=== PATIENT | male | born 1950 | race Caucasian/White ===

== ENCOUNTER 2017-11-05 16:52 | Inpatient (IN) ==
[2017-11-05 17:17] LABS: Basophils % 0.1 % (0.1-2.0); Eosinophils % 0.1 % (0.1-12.0); Hemoglobin 12.5 g/dL (14.1-18.0); Lymphocytes # 0.8 K/mm3 (0.7-4.5); Lymphocytes % 6.1 K/mm3 (10-50); Mean Corpuscular HGB Conc 32.1 g/dL (31.8-35.4); Mean Corpuscular Hemoglobin 29.2 pg (27.0-31.2); Mean Platelet Volume 8.2 fl (7.4-10.4); Neutrophils # 11.8 K/mm3 (1.8-7.8); Neutrophils % 86.7 % (37.0-80.0); Platelet Count 204 K/mm3 (142-424); Red Blood Count 4.29 M/mm3 (4.60-6.20); Red Cell Distribution Width 19.1 % (11.5-17.5); White Blood Count 13.6 K/mm3 (4.8-10.8)
--- NOTE | 2017-11-05 17:19 | Emergency Department Note ---
ED Disposition Clinical Impression: Closed left hip fracture Qualifiers: Encounter type: initial encounter Qualified Code(s): S72.002A - Fracture of unspecified part of neck of left femur, initial encounter for closed fracture Disposition: Admitted As Inpatient Condition on Discharge: Fair Referrals: Gerald Bailon MD [Primary Care Provider] - Antony Zamora MD [Staff Physician] - Time of Disposition: 18:41 - Critical Care Critical Care Time: No Attestation: On , the high probability of a clinically significant, sudden or life threatening deterioration of the following system(s) required my full and direct attention, intervention and personal management. The time I documented below is in addition to time spent performing reported procedures but includes the following listed in this critical care notation. Medical Decision Making - Medical Records Medical records reviewed: Yes: I reviewed the patient's medical records. - Fredi Inquiry Pt receiving controlled substance: No Fredi was queried for this patient: No Vital Signs: 11/05/17 16:57 Temperature 98.3 F Temperature Source Oral Pulse Rate [Right Radial] 88 Respiratory Rate 16 Blood Pressure [Right Arm] 145/87 Blood Pressure Mean [Right Arm] 106 Blood Pressure Source [Right Arm] Automatic Cuff Blood Pressure Position [Right Arm] Supine 02 Sat by Pulse Oximetry 99 Oxygen Delivery Method Room Air - Lab Data Lab results reviewed: Yes: I reviewed the patient's lab results. Lab Results 11/05/17 17:00: WBC 13.6 H, RBC 4.29 L, Hgb 12.5 L, Hct 39.0 L, MCV 91.0, MCH 29.2, MCHC 32.1, RDW 19.1 H, Plt Count 204, MPV 8.2, Neut % (Auto) 86.7 H, Lymph % (Auto) 6.1 L, [place] % (Auto) 7.0, Eos % (Auto) 0.1, Baso % (Auto) 0.1, Neut # (Auto) 11.8 H, Lymph # (Auto) 0.8, [place] # (Auto) 1.0, Eos # (Auto) 0.0, Baso # (Auto) 0.0, Total Counted 100, Neutrophils % (Manual) 85 H, Band Neutrophils % 1.0, Lymphocytes % (Manual) 4 L, Monocytes % (Manual) 10 H, Platelet Estimate Normal, RBC Morphology Normal 11/05/17 18:00: Urine Color Yellow, Urine Appearance Clear, Urine pH 6.5, Ur Specific [place] 1.015, Urine Protein Negative, Urine Glucose (UA) Negative, Urine Ketones Negative, Urine Blood Negative, Urine Nitrate Negative, Urine Bilirubin Negative, Urine Urobilinogen 0.2, Ur Leukocyte Esterase 1+ A, Urine RBC None, Urine WBC 5-10, Ur Squamous Epith Cells None, Urine Bacteria 3+ 11/05/17 18:13: Sodium 137, Potassium 4.6, Chloride 101, Carbon Dioxide 27, Anion Gap 13.6, BUN 52 H, Creatinine 1.90 H, Estimated Creat Clear 28, Estimated GFR 36 L, Est GFR ( Amer) 43 L, Glucose 118 H, Calcium 9.1, Total Bilirubin 2.1 H, AST 50 H, ALT 32, Alkaline Phosphatase 165 H, Total Protein 9.8 H, Albumin 3.0 L, Globulin 6.8 H, Albumin/Globulin Ratio 0.4 L 11/05/17 18:13: PT 12.4 H, INR 1.21 H Result diagrams: 11/05/17 17:00 11/05/17 18:13 Orders (Tests/Meds): ORDERS Category Date Time Status Chest XR AP view [XR chest AP] Stat Exams 11/05/17 17:23 Taken XR hip LT 2-3V w/pelvis Stat Exams 11/05/17 17:04 Taken XR shoulder RT min 2V Stat Exams 11/05/17 17:04 Taken Cardiac Enzymes Stat Lab 11/05/17 18:13 Received Lactic Acid Stat Lab 11/05/17 18:13 Received Urine Culture Stat Micro 11/05/17 18:00 Received - Radiology Data #1 Image(s): Chest Image Reviewed: Yes I reviewed the patient's radiology results, Yes I reviewed the patient's radiology image, Yes I reviewed the patient's radiology image w/ the ED provider Preliminary Findings: Normal/NAD #2 Image(s): Hip Image Reviewed: Yes I reviewed the patient's radiology results, Yes I reviewed the patient's radiology image, Yes I discussed the image results w/the radiologist, Yes I reviewed the patient's radiology image w/the ED provider intertrochanteric fracture left hip #3 Image(s): Shoulder Image Reviewed: Yes I reviewed the patient's radiology results, Yes I reviewed the patient's radiology image old fracture right clavicle Fall HPI - General Chief Complaint: Fall Stated Complaint: FALL Time Seen by Provider: 11/05/17 17:15 Mode of Arrival: EMS Limitations: No Limitations Description of Symptoms (Recalled from ER Triage Doc. by RN): FELL YESTERDAY IN UTILITY ROOM AND WAS LEFT ON FLOOR SINCE THEN. PT STATES HE SEEN STARS AND WAS TO WEAK TO GET UP. PT REPORTS PAIN IN "LEFT FEMUR AND LEFT PELVIS." BRUISE NOTED TO RIGHT SHOULDER AND AXILLA WHICH PT STATES THAT IS FROM A PREVIOUS. - History of Present Illness HPI Narrative: Pt lives alone and is a very thin emaciated man who says he is a vegetarian his entire life and yesterday he tried to miss his puppy and fell onto his left hip and back and lay on the floor all night last night until he was found today and now comes tot ED with pain in low back and in left hipand pelvis and the left leg is shortened and externally rotated. He is alert but very thin and appears to be somehat dehydrated.. He also complains of some dizziness. MD complaint: fall Onset (ago): day(s) Fall from: standing Fall witnessed: no Place fall occurred: home Loss of consciousness: none - Related Data Allergies Allergy/AdvReac Type Severity Reaction Status Date / Time No Known Allergies Allergy Verified 11/05/17 17:03 [facility] History I have reviewed the patient's past medical history: Yes - Social History Alcohol Intake: never - Psychiatric History Expresses thoughts of harming self/others: None Suicide Plan Description: No Plan ROS Obtained: Yes All systems reviewed & no additional complaints - Constitutional Constitutional: Reports system reviewed and no additional complaints, except as docu - Eyes Eyes: Reports system reviewed and no additional complaints, except as docu - ENT Ears, Nose, Mouth, and Throat: Reports system reviewed and no additional complaints, except as docu - Cardiovascular Cardiovascular: Reports system reviewed and no additional complaints, except as docu - Musculoskeletal Musculoskeletal: Reports system reviewed and no additional complaints, except as docu, Reports as per HPI Physical Exam - General General appearance: alert, in no apparent distress - Head Head exam: atraumatic - Eye Eye exam: Present: normal appearance - ENT ENT exam: Present: mucous membranes dry - Neck Neck exam: Present: normal inspection - Chest Chest inspection: Present: normal inspection - Respiratory Respiratory exam: Present: normal lung sounds bilaterally - Cardiovascular Cardiovascular exam: Present: regular rate, normal rhythm - Extremities Exam Extremities exam: Present: other (left leg shortened and externally rotated) - Neurological Exam Neurological exam: Present: alert, oriented X3
[2017-11-05 18:03] LABS: Appearance,Urine CLEAR (Clear); Bilirubin,Urine Negative (Negative); Blood, Urine Negative (Negative); Color,Urine YELLOW (Yellow); Glucose,Urine (UA) Negative (Negative); Ketones,Urine Negative (Negative); Leukocyte Esterase,Urine 1+ (Negative); PH,Urine 6.5 (5.0-8.5); Protein,Urine Negative (Negative); Specific Gravity, Urine 1.015 (1.005-1.030); Urobilinogen,Urine 0.2 EU/dl (0.2)
[2017-11-05 18:05] LABS: Microscopic, Urine URINE MICROSCOPIC (MICROSCOPIC)
[2017-11-05 18:13] LABS: Bacteria,Urine 3+ /lpf
[2017-11-05 18:16] LABS: Lymphocytes % 4 % (10-50); Monocytes % 10 % (2-9); Neutrophils % 85 % (42-76); RBC Morphology Normal; Total Cells Counted 100
[2017-11-05 18:30] LABS: INR 1.21 (0.9-1.1); Prothrombin Time 12.4 seconds (9.4-11.8)
[2017-11-05 18:36] LABS: Albumin/Globulin Ratio 0.4 (1.1-1.8); Anion Gap 13.6 mEq/L (5-15); Bilirubin,Total 2.1 mg/dL (0.2-1.0); Calcium 9.1 mg/dL (8.5-10.1); Globulin 6.8 gm/dl (1.3-3.2); Potassium 4.6 mmoL/L (3.5-5.1); Total Protein,Serum 9.8 gm/dL (6.4-8.2)
[2017-11-05 18:48] LABS: Creatine Kinase 294 U/L (39-308)
[2017-11-06 06:41] LABS: Basophils % 0.1 % (0.1-2.0); Eosinophils # 0.2 K/mm3 (0.0-0.4); Eosinophils % 0.9 % (0.1-12.0); Lymphocytes # 0.6 K/mm3 (0.7-4.5); Lymphocytes % 2.8 K/mm3 (10-50); Mean Corpuscular HGB Conc 31.9 g/dL (31.8-35.4); Mean Corpuscular Hemoglobin 28.9 pg (27.0-31.2); Mean Corpuscular Volume 90.6 fl (80-94); Mean Platelet Volume 8.2 fl (7.4-10.4); Monocytes # 1.1 K/mm3 (0.1-1.0); Monocytes % 5.2 % (1.7-9.3); Neutrophils # 18.4 K/mm3 (1.8-7.8); Neutrophils % 91.1 % (37.0-80.0); Platelet Count 130 K/mm3 (142-424); Red Blood Count 3.66 M/mm3 (4.60-6.20); Red Cell Distribution Width 16.4 % (11.5-17.5)
[2017-11-06 06:45] LABS: INR 1.23 (0.9-1.1); Prothrombin Time 12.6 seconds (9.4-11.8)
[2017-11-06 06:54] LABS: Albumin Level 2.6 gm/dL (3.4-5.0); Albumin/Globulin Ratio 0.4 (1.1-1.8); Anion Gap 7.5 mEq/L (5-15); Bilirubin,Total 1.5 mg/dL (0.2-1.0); Calcium 8.5 mg/dL (8.5-10.1); Potassium 4.5 mmoL/L (3.5-5.1); Total Protein,Serum 8.6 gm/dL (6.4-8.2)
[2017-11-06 07:01] LABS: Hemoglobin 10.7 g/dL (14.1-18.0); White Blood Count 19.8 K/mm3 (4.8-10.8)
[2017-11-06 07:02] LABS: Hematocrit 33.2 % (42.0-52.0)
--- NOTE | 2017-11-06 07:10 | History & Physical Report ---
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 Injury had occurred at some point in the previous 24 hours. Patient was found to have an intertrochanteric left hip fracture and has been admitted for surgical repair. Other than pain patient has no complaints this morning. He denies syncope, chest pain, shortness of breath. [facility] History Medical History: Denies:: Cancer, Diabetes Mellitus Type 1, Diabetes Mellitus Type 2, Internal Pacemaker, MRSA Comment: Hepatitis C Other Surgeries: No: Pacemaker Amputation: No Fractures: Yes (BOTH LEGS; RT RADIAL, LT ULNA, NOSE, JAW, TED:BLE 2INCHES SHORTER AFTER F) Comment: Right herniorrhaphy, banding of esophageal varices - *Social History Educational Level: Attended College Alcohol Intake: never Occupational Status: retired Housing: house - Psychiatric History Expresses thoughts of harming self/others: None Suicide Plan Description: No Plan Review of Systems - Constitutional Reports anorexia, Denies body ache(s), Denies chills - *Cardiovascular Denies chest pain - *Respiratory Denies shortness of breath - *Gastrointestinal Denies abdominal pain Comments: Ascites - *Musculoskeletal Reports joint pain Meds Home Medications Medication Instructions Recorded Confirmed Type Furosemide 40MG tAB 40 mg PO DAILY 11/05/17 11/05/17 History Propranolol HCl 10 mg PO BID 11/05/17 11/05/17 History Spironolactone 100 mg PO DAILY 11/05/17 11/05/17 History Vitamin D3 50,000 unit Cap 50,000 units PO WEEKLY 11/05/17 11/05/17 History Allergies Allergy/AdvReac Type Severity Reaction Status Date / Time No Known Allergies Allergy Verified 11/05/17 17:03 Exam Vital signs and Labs for Last 24 Hours: Temp Pulse Resp BP Pulse Ox 98.2 F 78 18 124/67 92 L 11/06/17 04:00 11/06/17 04:00 11/06/17 04:00 11/06/17 04:00 11/06/17 04:00 Laboratory Results - last 24 hr 11/05/17 17:00: WBC 13.6 H, RBC 4.29 L, Hgb 12.5 L, Hct 39.0 L, MCV 91.0, MCH 29.2, MCHC 32.1, RDW 19.1 H, Plt Count 204, MPV 8.2, Neut % (Auto) 86.7 H, Lymph % (Auto) 6.1 L, [place] % (Auto) 7.0, Eos % (Auto) 0.1, Baso % (Auto) 0.1, Neut # (Auto) 11.8 H, Lymph # (Auto) 0.8, [place] # (Auto) 1.0, Eos # (Auto) 0.0, Baso # (Auto) 0.0, Total Counted 100, Neutrophils % (Manual) 85 H, Band Neutrophils % 1.0, Lymphocytes % (Manual) 4 L, Monocytes % (Manual) 10 H, Platelet Estimate Normal, RBC Morphology Normal 11/05/17 18:00: Urine Color Yellow, Urine Appearance Clear, Urine pH 6.5, Ur Specific [place] 1.015, Urine Protein Negative, Urine Glucose (UA) Negative, Urine Ketones Negative, Urine Blood Negative, Urine Nitrate Negative, Urine Bilirubin Negative, Urine Urobilinogen 0.2, Ur Leukocyte Esterase 1+ A, Urine RBC None, Urine WBC 5-10, Ur Squamous Epith Cells None, Urine Bacteria 3+ 11/05/17 18:13: Sodium 137, Potassium 4.6, Chloride 101, Carbon Dioxide 27, Anion Gap 13.6, BUN 52 H, Creatinine 1.90 H, Estimated Creat Clear 28, Estimated GFR 36 L, Est GFR ( Amer) 43 L, Glucose 118 H, Calcium 9.1, Total Bilirubin 2.1 H, AST 50 H, ALT 32, Alkaline Phosphatase 165 H, Total Protein 9.8 H, Albumin 3.0 L, Globulin 6.8 H, Albumin/Globulin Ratio 0.4 L 11/05/17 18:13: Total Creatine Kinase 294, CK-MB (CK-2) 3.1, CK-MB (CK-2) Rel Index 1.1, Troponin I < 0.02 11/05/17 18:13: PT 12.4 H, INR 1.21 H 11/05/17 18:13: Lactic Acid 2.3 H 11/05/17 22:10: Lactic Acid Fup @ 4Hr 1.8 11/06/17 06:19: WBC 19.8 H D, RBC 3.66 L, Hgb 10.7 L D, Hct 33.2 L, MCV 90.6, MCH 28.9, MCHC 31.9, RDW 16.4, Plt Count 130 L D, MPV 8.2, Neut % (Auto) 91.1 H , Lymph % (Auto) 2.8 L, [place] % (Auto) 5.2, Eos % (Auto) 0.9, Baso % (Auto) 0.1, Neut # (Auto) 18.4 H, Lymph # (Auto) 0.6 L, [place] # (Auto) 1.1 H, Eos # (Auto) 0.2, Baso # (Auto) 0.0 11/06/17 06:19: PT 12.6 H, INR 1.23 H I & O for Last 24 hours: Intake & Output 11/03/17 11/04/17 11/05/17 11/06/17 11:59 11:59 11:59 11:59 Intake Total 893 / 893 Output Total 100 / 100 Balance 793 / 793 Weight 101 lb 4 oz Microbiology Reports for the Last 24 Hours: Microbiology 11/05/17 18:00 Urine,Clean Catch Urine Culture - Preliminary Narrative: Cachectic appearing male who also appears older than his stated age. Oropharynx is moist. Neck is without lymphadenopathy. Lungs are distant but clear to auscultation. Heart has a regular rate and rhythm. Abdomen is thin and soft with minimal ascites. Extremities are warm to the touch. He is neurovascularly intact in the left lower extremity distal to the fracture. H&P: Result - Labs Labs: Short CBC 11/05/17 11/06/17 Range/Units 17:00 06:19 WBC 13.6 H 19.8 H D (4.8-10.8) K/mm3 Hgb 12.5 L 10.7 L D (14.1-18.0) g/dL Hct 39.0 L 33.2 L (42.0-52.0) % Plt Count 204 130 L D (142-424) K/mm3 BMP 11/05/17 18:13 Sodium 137 Potassium 4.6 Chloride 101 Carbon Dioxide 27 BUN 52 H Creatinine 1.90 H Glucose 118 H Calcium 9.1 Cardiac Enzymes 11/05/17 Range/Units 18:13 Total Creatine Kinase 294 (39-308) U/L CK-MB (CK-2) 3.1 (0.0-3.6) ng/ml Troponin I < 0.02 (0.00-0.06) ng/ml Liver Function 11/05/17 Range/Units 18:13 Total Bilirubin 2.1 H (0.2-1.0) mg/dL AST 50 H (15-37) U/L ALT 32 (12-78) U/L Alkaline Phosphatase 165 H (46-116) U/L Albumin 3.0 L (3.4-5.0) gm/dL Urine 11/05/17 Range/Units 18:00 Urine Color Yellow (Yellow) Urine Appearance Clear (Clear) Urine pH 6.5 (5.0-8.5) Ur Specific [place] 1.015 (1.005-1.030) Urine Protein Negative (Negative) Urine Glucose (UA) Negative (Negative) Assessment and Plan (1) Closed left hip fracture Current visit: Yes Status: Acute Qualifiers: Encounter type: initial encounter Qualified Code(s): S72.002A - Fracture of unspecified part of neck of left femur, initial encounter for closed fracture Category: Medical Code(s): S72.002A - Fracture of unspecified part of neck of left femur, initial encounter for closed fracture (2) Hepatic cirrhosis due to chronic hepatitis C infection Current visit: Yes Status: Acute Category: Medical Code(s): B18.2 - Chronic viral hepatitis C; K74.60 - Unspecified cirrhosis of liver - Assessment and plan all Dx Assessment and Plan for all problems:: Patient has been admitted for repair of left hip fracture. I have been informed by nursing staff that that is anticipated to occur this afternoon. I have already explained to the patient that postoperatively he will be evaluated by physical therapy and will likely need a stay at a retirement facility to get back on his feet. Patient is understanding. He looks forward to having his hip fracture repaired.
--- NOTE | 2017-11-06 08:34 | Pharmacy Consult Notes ---
[facility] Pharmacy VTE Monitoring - Patient Demographics Admission date: 11/06/17 Report Date: 11/06/17 Time: 08:34 Allergies/Adverse Reactions: Patient Allergies No Known Allergies Allergy (Verified 11/05/17 17:03) Height: 1.68 m Weight: 47.287 kg Patient Problems: Current Active Problems Closed left hip fracture (Acute) Hepatic cirrhosis due to chronic hepatitis C infection (Acute) - VTE Risk Labs: VTE Related Lab Results Hgb 10.7 g/dL (14.1-18.0) L D 11/06/17 06:19 Hct 33.2 % (42.0-52.0) L 11/06/17 06:19 Plt Count 130 K/mm3 (142-424) L D 11/06/17 06:19 PT 12.6 seconds (9.4-11.8) H 11/06/17 06:19 INR 1.23 (0.9-1.1) H 11/06/17 06:19 BUN 50 mg/dL (7-18) H 11/06/17 06:19 Creatinine 1.57 mg/dL (0.70-1.30) H 11/06/17 06:19 Estimated Creat Clear 30 mL/min (0-300) 11/06/17 06:19 VTE Risk Level: Low Risk - Prophylaxis Location of Applied Device: Bilateral Lower Extremeties ([place] ORDERED)
[2017-11-06 09:33] LABS: Lymphocytes % 4 % (10-50); Monocytes % 6 % (2-9); Neutrophils % 86 % (42-76); Total Cells Counted 100
--- NOTE | 2017-11-06 10:19 | Pharmacy Consult Notes ---
[facility] Pharmacy VTE Monitoring - Patient Demographics Admission date: 11/05/17 Report Date: 11/06/17 Time: 10:19 Allergies/Adverse Reactions: Patient Allergies No Known Allergies Allergy (Verified 11/05/17 17:03) Height: 1.68 m Weight: 47.287 kg Patient Problems: Current Active Problems Closed left hip fracture (Acute) Hepatic cirrhosis due to chronic hepatitis C infection (Acute) - VTE Risk Labs: VTE Related Lab Results Hgb 10.7 g/dL (14.1-18.0) L D 11/06/17 06:19 Hct 33.2 % (42.0-52.0) L 11/06/17 06:19 Plt Count 130 K/mm3 (142-424) L D 11/06/17 06:19 PT 12.6 seconds (9.4-11.8) H 11/06/17 06:19 INR 1.23 (0.9-1.1) H 11/06/17 06:19 BUN 50 mg/dL (7-18) H 11/06/17 06:19 Creatinine 1.57 mg/dL (0.70-1.30) H 11/06/17 06:19 Estimated Creat Clear 30 mL/min (0-300) 11/06/17 06:19 VTE Risk Level: Low Risk - Prophylaxis VTE Prophylaxis Ordered?: Yes Types of VTE Prophylaxis: TEDS Knee High Location of Applied Device: Bilateral Lower Extremeties - VTE Diagnosis Confirmed Treatment or plan recommended: Continue Current Treatment
--- NOTE | 2017-11-06 13:42 | Consult Report ---
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 Injury had occurred at some point in the previous 24 hours. Patient was found to have an intertrochanteric left hip fracture and has been admitted for surgical repair. Other than pain patient has no complaints this morning. He denies syncope, chest pain, shortness of breath. [facility] History Medical History: Denies:: Cancer, Diabetes Mellitus Type 1, Diabetes Mellitus Type 2, Internal Pacemaker, MRSA Other Surgeries: No: Pacemaker Amputation: No Fractures: Yes (BOTH LEGS; RT RADIAL, LT ULNA, NOSE, JAW, TED:BLE 2INCHES SHORTER AFTER F) - *Social History Educational Level: Attended College Alcohol Intake: never Occupational Status: retired Housing: house - Psychiatric History Expresses thoughts of harming self/others: None Suicide Plan Description: No Plan Meds Home Medications Medication Instructions Recorded Confirmed Type Cholecalciferol (Vitamin D3) 50,000 unit PO PRAKASH 11/05/17 11/06/17 History [Vitamin D3 50,000 unit Cap] Furosemide [Furosemide 40MG tAB] 40 mg PO DAILY 11/05/17 11/05/17 History Propranolol HCl 10 mg PO BID 11/05/17 11/06/17 History Spironolactone 100 mg PO DAILY 11/05/17 11/06/17 History Allergies Allergy/AdvReac Type Severity Reaction Status Date / Time No Known Allergies Allergy Verified 11/05/17 17:03 Exam Vital signs and Labs for Last 24 Hours: Temp Pulse Resp BP Pulse Ox 97.8 F 51 L 16 124/65 93 L 11/06/17 08:00 11/06/17 08:00 11/06/17 08:00 11/06/17 08:00 11/06/17 08:00 Laboratory Results - last 24 hr 11/05/17 17:00: WBC 13.6 H, RBC 4.29 L, Hgb 12.5 L, Hct 39.0 L, MCV 91.0, MCH 29.2, MCHC 32.1, RDW 19.1 H, Plt Count 204, MPV 8.2, Neut % (Auto) 86.7 H, Lymph % (Auto) 6.1 L, Harper % (Auto) 7.0, Eos % (Auto) 0.1, Baso % (Auto) 0.1, Neut # (Auto) 11.8 H, Lymph # (Auto) 0.8, Harper # (Auto) 1.0, Eos # (Auto) 0.0, Baso # (Auto) 0.0, Total Counted 100, Neutrophils % (Manual) 85 H, Band Neutrophils % 1.0, Lymphocytes % (Manual) 4 L, Monocytes % (Manual) 10 H, Platelet Estimate Normal, RBC Morphology Normal 11/05/17 18:00: Urine Color Yellow, Urine Appearance Clear, Urine pH 6.5, Ur Specific [place] 1.015, Urine Protein Negative, Urine Glucose (UA) Negative, Urine Ketones Negative, Urine Blood Negative, Urine Nitrate Negative, Urine Bilirubin Negative, Urine Urobilinogen 0.2, Ur Leukocyte Esterase 1+ A, Urine RBC None, Urine WBC 5-10, Ur Squamous Epith Cells None, Urine Bacteria 3+ 11/05/17 18:13: Sodium 137, Potassium 4.6, Chloride 101, Carbon Dioxide 27, Anion Gap 13.6, BUN 52 H, Creatinine 1.90 H, Estimated Creat Clear 28, Estimated GFR 36 L, Est GFR ( Amer) 43 L, Glucose 118 H, Calcium 9.1, Total Bilirubin 2.1 H, AST 50 H, ALT 32, Alkaline Phosphatase 165 H, Total Protein 9.8 H, Albumin 3.0 L, Globulin 6.8 H, Albumin/Globulin Ratio 0.4 L 11/05/17 18:13: Total Creatine Kinase 294, CK-MB (CK-2) 3.1, CK-MB (CK-2) Rel Index 1.1, Troponin I < 0.02 11/05/17 18:13: PT 12.4 H, INR 1.21 H 11/05/17 18:13: Lactic Acid 2.3 H 11/05/17 22:10: Lactic Acid Fup @ 4Hr 1.8 11/06/17 06:19: WBC 19.8 H D, RBC 3.66 L, Hgb 10.7 L D, Hct 33.2 L, MCV 90.6, MCH 28.9, MCHC 31.9, RDW 16.4, Plt Count 130 L D, MPV 8.2, Neut % (Auto) 91.1 H , Lymph % (Auto) 2.8 L, Harper % (Auto) 5.2, Eos % (Auto) 0.9, Baso % (Auto) 0.1, Neut # (Auto) 18.4 H, Lymph # (Auto) 0.6 L, Harper # (Auto) 1.1 H, Eos # (Auto) 0.2, Baso # (Auto) 0.0, Total Counted 100, Neutrophils % (Manual) 86 H, Band Neutrophils % 4.0, Lymphocytes % (Manual) 4 L, Monocytes % (Manual) 6, Platelet Estimate Slight decrease 11/06/17 06:19: PT 12.6 H, INR 1.23 H 11/06/17 06:19: Sodium 134 L, Potassium 4.5, Chloride 102, Carbon Dioxide 29, Anion Gap 7.5, BUN 50 H, Creatinine 1.57 H, Estimated Creat Clear 30, Estimated GFR 44 L, Est GFR ( Amer) 54 L D, Glucose 100, Calcium 8.5, Magnesium 1.8 , Total Bilirubin 1.5 H, AST 42 H, ALT 29, Alkaline Phosphatase 147 H, Total Protein 8.6 H, Albumin 2.6 L D, Globulin 6.0 H, Albumin/Globulin Ratio 0.4 L I & O for Last 24 hours: Intake & Output 11/04/17 11/05/17 11/06/17 11/07/17 11:59 11:59 11:59 11:59 Intake Total 918 / 918 Output Total 100 / 100 Balance 818 / 818 Weight 104 lb 4 oz 104 lb 4 oz Microbiology Reports for the Last 24 Hours: Microbiology 11/05/17 18:00 Urine,Clean Catch Urine Culture - Preliminary Narrative: This patient is a 67 yo male with a complex PHx including Hepatitis C who fell at home incurring a left hip intertrochanteric fx. He is admitted for orthopaedic care. Exam...pt is coherent and good historian. L hip shortened and externally rotated. Pulses intact PT and DP. sensate to LT. no palpable venous cord. 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 Imp--Same Plan--Gamma nail placement L hip. R/B discussed as well as nonsurgical options. Pt agrees with surgery. Will plan for this afternoon. Note that pt developed AFib in OR and Dr. Pelletier was kind enough to offer management suggestions prior to surgery. Results - Labs Result Diagrams: 11/06/17 06:19 11/06/17 06:19 Labs: Abnormal lab results 11/05/17 11/05/17 11/05/17 Range/Units 17:00 18:00 18:13 WBC 13.6 H (4.8-10.8) K/mm3 RBC 4.29 L (4.60-6.20) M/mm3 Hgb 12.5 L (14.1-18.0) g/dL Hct 39.0 L (42.0-52.0) % RDW 19.1 H (11.5-17.5) % Plt Count (142-424) K/mm3 Neut % (Auto) 86.7 H (37.0-80.0) % Lymph % (Auto) 6.1 L (10-50) K/mm3 Neut # (Auto) 11.8 H (1.8-7.8) K/mm3 Lymph # (Auto) (0.7-4.5) K/mm3 Harper # (Auto) (0.1-1.0) K/mm3 Neutrophils % (Manual) 85 H (42-76) % Lymphocytes % (Manual) 4 L (10-50) % Monocytes % (Manual) 10 H (2-9) % PT (9.4-11.8) seconds INR (0.9-1.1) Sodium (136-145) mmol/L BUN 52 H (7-18) mg/dL Creatinine 1.90 H (0.70-1.30) mg/dL Estimated GFR 36 L (>60) ml/min Est GFR ( Amer) 43 L (>60) ML/MIN Glucose 118 H (74-106) mg/dL Lactic Acid (0.4-2.0) mmol/L Total Bilirubin 2.1 H (0.2-1.0) mg/dL AST 50 H (15-37) U/L Alkaline Phosphatase 165 H (46-116) U/L Total Protein 9.8 H (6.4-8.2) gm/dL Albumin 3.0 L (3.4-5.0) gm/dL Globulin 6.8 H (1.3-3.2) gm/dl Albumin/Globulin Ratio 0.4 L (1.1-1.8) Ur Leukocyte Esterase 1+ A (Negative) 11/05/17 11/05/17 11/06/17 Range/Units 18:13 18:13 06:19 WBC 19.8 H D (4.8-10.8) K/mm3 RBC 3.66 L (4.60-6.20) M/mm3 Hgb 10.7 L D (14.1-18.0) g/dL Hct 33.2 L (42.0-52.0) % RDW (11.5-17.5) % Plt Count 130 L D (142-424) K/mm3 Neut % (Auto) 91.1 H (37.0-80.0) % Lymph % (Auto) 2.8 L (10-50) K/mm3 Neut # (Auto) 18.4 H (1.8-7.8) K/mm3 Lymph # (Auto) 0.6 L (0.7-4.5) K/mm3 Harper # (Auto) 1.1 H (0.1-1.0) K/mm3 Neutrophils % (Manual) 86 H (42-76) % Lymphocytes % (Manual) 4 L (10-50) % Monocytes % (Manual) (2-9) % PT 12.4 H (9.4-11.8) seconds INR 1.21 H (0.9-1.1) Sodium (136-145) mmol/L BUN (7-18) mg/dL Creatinine (0.70-1.30) mg/dL Estimated GFR (>60) ml/min Est GFR ( Amer) (>60) ML/MIN Glucose (74-106) mg/dL Lactic Acid 2.3 H (0.4-2.0) mmol/L Total Bilirubin (0.2-1.0) mg/dL AST (15-37) U/L Alkaline Phosphatase (46-116) U/L Total Protein (6.4-8.2) gm/dL Albumin (3.4-5.0) gm/dL Globulin (1.3-3.2) gm/dl Albumin/Globulin Ratio (1.1-1.8) Ur Leukocyte Esterase (Negative) 11/06/17 11/06/17 Range/Units 06:19 06:19 WBC (4.8-10.8) K/mm3 RBC (4.60-6.20) M/mm3 Hgb (14.1-18.0) g/dL Hct (42.0-52.0) % RDW (11.5-17.5) % Plt Count (142-424) K/mm3 Neut % (Auto) (37.0-80.0) % Lymph % (Auto) (10-50) K/mm3 Neut # (Auto) (1.8-7.8) K/mm3 Lymph # (Auto) (0.7-4.5) K/mm3 Harper # (Auto) (0.1-1.0) K/mm3 Neutrophils % (Manual) (42-76) % Lymphocytes % (Manual) (10-50) % Monocytes % (Manual) (2-9) % PT 12.6 H (9.4-11.8) seconds INR 1.23 H (0.9-1.1) Sodium 134 L (136-145) mmol/L BUN 50 H (7-18) mg/dL Creatinine 1.57 H (0.70-1.30) mg/dL Estimated GFR 44 L (>60) ml/min Est GFR ( Amer) 54 L D (>60) ML/MIN Glucose (74-106) mg/dL Lactic Acid (0.4-2.0) mmol/L Total Bilirubin 1.5 H (0.2-1.0) mg/dL AST 42 H (15-37) U/L Alkaline Phosphatase 147 H (46-116) U/L Total Protein 8.6 H (6.4-8.2) gm/dL Albumin 2.6 L D (3.4-5.0) gm/dL Globulin 6.0 H (1.3-3.2) gm/dl Albumin/Globulin Ratio 0.4 L (1.1-1.8) Ur Leukocyte Esterase (Negative) H & H 11/05/17 11/06/17 Range/Units 17:00 06:19 Hgb 12.5 L 10.7 L D (14.1-18.0) g/dL Hct 39.0 L 33.2 L (42.0-52.0) % Coagulation 11/05/17 11/06/17 Range/Units 18:13 06:19 INR 1.21 H 1.23 H (0.9-1.1) All other labs normal. Assessment and Plan (1) Closed left hip fracture Current visit: Yes Status: Acute Qualifiers: Encounter type: initial encounter Qualified Code(s): S72.002A - Fracture of unspecified part of neck of left femur, initial encounter for closed fracture Category: Medical Code(s): S72.002A - Fracture of unspecified part of neck of left femur, initial encounter for closed fracture (2) Hepatic cirrhosis due to chronic hepatitis C infection Current visit: Yes Status: Acute Category: Medical Code(s): B18.2 - Chronic viral hepatitis C; K74.60 - Unspecified cirrhosis of liver
--- NOTE | 2017-11-06 15:45 | Progress Note ---
[facility] Anesthesia Checklist - Patient Identification Patient Identification: Arm Band - Structural Data Admitted From: Inpatient Planned Operative Procedure/s: left hip gamma nail Consent for Planned Operative Procedure(s) Verified: Yes Verified Documents: Surgical Consent, History and Physical - NPO Status Verified Time NPO: 00:00 - Additional verifications Anesthesia Reactions: No - Airway Assessment C-Spine Mobility Assessed: Yes (mp2) TMJ Mobility Assessed: Yes Dentition: Good Dentition - Neurological Assessment Level of Consciousness: Awake, Alert - Anesthesia Plan Anesthesia Risk discussed: Yes Anesthesia Plan: Verified Anesthesia Type: Spinal [facility] Anesthesia HX I have reviewed the patient's past medical history: Yes Medical History: Reports:: Atrial Fibrillation Denies:: Cancer, Diabetes Mellitus Type 1, Diabetes Mellitus Type 2, Internal Pacemaker, MRSA Other Surgeries: No: Pacemaker Amputation: No Fractures: Yes (BOTH LEGS; RT RADIAL, LT ULNA, NOSE, JAW, TED:BLE 2INCHES SHORTER AFTER F)
--- NOTE | 2017-11-06 15:47 | Progress Note ---
[facility] Anesthesia Record Part II Discharge Time: 16:00 Destination: 2nd floor PACU nurse assessment reviewed?: Yes Patient Condition:: Good Anesthesia Complications:: None
--- NOTE | 2017-11-06 15:47 | Progress Note ---
[facility] Anesthesia Record Part I Intake, IV Amount: 1,700 Estimated blood loss (mL): 50 Urine output (mL): 800 Blood Pressure: 103/75 SaO2: 95 Pulse Rate: 88 Respiratory Rate: 16 Temperature: 97.7 F Patient is:: Drowsy, Stable Stable to PACU at:: 15:30 Comments:: upon entering Pacu and monitors applied, pt's heart rhythm noted to be more controlled than in the OR. EKG ordered and will continue to monitor closely.
--- NOTE | 2017-11-06 15:54 | Operative Note ---
Date of procedure: 11/06/17 Pre-op Diagnosis:: L Intertrochanteric hip fracture Post-op Diagnosis:: same Procedure performed:: Closed reduction Gamma nail stabilization of IT hip fx L Surgeon:: Klever Alegria MD [employer] REPRESENTATIVE:: Geremias Rosenbergfinn Anesthesia: MAC, spinal Estimated blood loss (mL): 50 Operative findings:: 67 yo male incurred episode of A Fib in OR prior to spinal anesthetic. After discussion with anesthesia and cardiology, pt prepped and draped and underwent closed reduction of IT hip fx. Guidewire introduced and prox. femur reamed and 130 degree [place] gamma nail placed. Initial lag screw of 105 mm replaced with 110 mm for better security. Set screw placed and checked. Cross lock outer sleeve unavailable in set and crosslock drilled and confirmed across femur. Unable to measure and estimated at 30mm. Screw placed acceptably and confirmed appropriate reduction and hardware placement. Jigs removed, wounds irrigated x 3 and closed with carlos and vicryl 2-0 as needed. Operative note:: see above Condition: stable Disposition: PACU Complications:: none
--- NOTE | 2017-11-07 07:53 | Progress Note ---
Internal Medicine - PN: Subj *Date: 11/07/17 *Time: 07:50 Interval history: Patient underwent successful gamma nail fixation of intratrochanteric fracture of the left hip yesterday. Prior to surgery he was identified as having atrial fibrillation. Patient's rate was controlled. He was given some Cardizem intravenously preoperatively. He did well through surgery except for requiring Dariel-Synephrine to keep his blood pressure in the 90s. Patient did receive spinal anesthesia. Postoperatively he is remained in atrial fibrillation along with some couplets. He has not had any complaints of chest pain or palpitations or shortness of breath. Postoperatively is restarted on a phenylephrine drip to keep his blood pressures adequate. IV fluids have continued with lactated Ringer's at 125 mL's per hour. New This morning the patient complains of pain coming from the hip which responds best to IV morphine. To try to reduce the impact narcotics on his blood pressure patient was given hydrocodone yesterday evening but this did not reduce his pain significantly. He also complains of a very stiff neck and pain coming from the right shoulder. X-ray of the shoulder on admission showed an old or subacute right clavicular fracture. Exam Vital signs and Labs for Last 24 Hours: Temp Pulse Resp BP Pulse Ox 98.6 F 89 22 106/55 97 11/07/17 04:00 11/07/17 07:00 11/07/17 07:00 11/07/17 07:00 11/07/17 07:00 Laboratory Results - last 24 hr 11/06/17 06:19: Total Counted 100, Neutrophils % (Manual) 86 H, Band Neutrophils % 4.0, Lymphocytes % (Manual) 4 L, Monocytes % (Manual) 6, Platelet Estimate Slight decrease 11/06/17 13:45: Urine Color Yellow, Urine Appearance Sl cloudy, Urine pH 7.0, Ur Specific [place] 1.010, Urine Protein Negative, Urine Glucose (UA) Negative, Urine Ketones Negative, Urine Blood Trace-i, Urine Nitrate Negative, Urine Bilirubin Negative, Urine Urobilinogen 0.2, Ur Leukocyte Esterase 3+ A, Urine RBC Occasional, Urine WBC Occasional, Ur Squamous Epith Cells None, Urine Bacteria 2+ A Vital Signs - 8 hr 11/07/17 00:00 11/07/17 00:30 11/07/17 01:00 Temperature Pulse Rate [Apical] 79 76 90 Pulse Rate [Left Brachial] Respiratory Rate 26 H 21 21 Blood Pressure [Left Arm] 91/49 91/41 142/46 Blood Pressure [Right Arm] 02 Sat by Pulse Oximetry 98 98 99 11/07/17 01:30 11/07/17 02:00 11/07/17 02:30 Temperature Pulse Rate [Apical] 88 92 H 88 Pulse Rate [Left Brachial] Respiratory Rate 19 22 Blood Pressure [Left Arm] 98/52 109/49 Blood Pressure [Right Arm] 110/56 02 Sat by Pulse Oximetry 100 100 11/07/17 03:00 11/07/17 03:30 11/07/17 04:00 Temperature 98.6 F Pulse Rate [Apical] 88 89 Pulse Rate [Left Brachial] 88 Respiratory Rate 21 23 22 Blood Pressure [Left Arm] 88/42 116/57 94/50 Blood Pressure [Right Arm] 02 Sat by Pulse Oximetry 99 100 99 11/07/17 04:30 11/07/17 05:00 11/07/17 05:30 Temperature Pulse Rate [Apical] 90 92 H 91 H Pulse Rate [Left Brachial] Respiratory Rate 21 24 23 Blood Pressure [Left Arm] 94/50 88/42 113/39 Blood Pressure [Right Arm] 02 Sat by Pulse Oximetry 96 94 L 95 11/07/17 06:00 11/07/17 06:19 11/07/17 06:30 Temperature Pulse Rate [Apical] 94 H 95 H Pulse Rate [Left Brachial] Respiratory Rate 23 16 Blood Pressure [Left Arm] 93/41 123/41 Blood Pressure [Right Arm] 02 Sat by Pulse Oximetry 93 L 95 94 L 11/07/17 07:00 Temperature Pulse Rate [Apical] 89 Pulse Rate [Left Brachial] Respiratory Rate 22 Blood Pressure [Left Arm] 106/55 Blood Pressure [Right Arm] 02 Sat by Pulse Oximetry 97 I & O for Last 24 hours: Intake & Output 11/04/17 11/05/17 11/06/17 11/07/17 11:59 11:59 11:59 11:59 Intake Total 918 / 918 4910 / 4910 Output Total 100 / 100 Balance 818 / 818 4910 / 4910 Weight 104 lb 4 oz 113 lb 3 oz Microbiology Reports for the Last 24 Hours: Microbiology 11/05/17 18:00 Urine,Clean Catch Urine Culture - Preliminary Narrative: Patient is awake and alert and lucid. He has notable right clavicular deformity with mild tenderness. There is bruising along the anterior axilla. Abdomen shows mild accumulation of ascites but is soft. Heart has an irregular rate and rhythm. Lungs are clear. Assessment and Plan (1) Closed left hip fracture Current visit: Yes Status: Acute Qualifiers: Encounter type: initial encounter Qualified Code(s): S72.002A - Fracture of unspecified part of neck of left femur, initial encounter for closed fracture Category: Medical Code(s): S72.002A - Fracture of unspecified part of neck of left femur, initial encounter for closed fracture (2) Hepatic cirrhosis due to chronic hepatitis C infection Current visit: Yes Status: Acute Category: Medical Code(s): B18.2 - Chronic viral hepatitis C; K74.60 - Unspecified cirrhosis of liver (3) Urinary tract infection Current visit: Yes Status: Suspected Category: Medical Code(s): N39.0 - Urinary tract infection, site not specified (4) Right clavicle fracture Current visit: Yes Status: Chronic Category: Medical Code(s): S42.001A - Fracture of unspecified part of right clavicle, initial encounter for closed fracture - Assessment and plan all Dx Assessment and Plan for all problems:: 1. Attempt to wean Dariel-Synephrine and keep systolic blood pressure above 90 2. I am going to decrease his IV fluid right. Patient has already had several liters of fluid since hospitalization and I am concerned that volume expansion may increase his risk of bleeding due to his underlying cirrhosis 3. Patient will be given a low dose of spironolactone 25 mg as he is beginning to accumulate some ascites. Hold home furosemide 4. Continue monitoring of pulse and blood pressure. Patient takes propranolol at home for esophageal varices and portal hypertension. At times his pulse rate has been in the 50s. His evening dose of propranolol was held. Pulse is currently in the 90s with systolic blood pressures in the 100s. If pressure cannot tolerate propranolol may use some digoxin to keep heart rate controlled 5. CBC and CMP are pending this morning 6. I have explained to the patient that oral narcotics will have less of an impact on his blood pressure than IV narcotics and I am going to order plain oxycodone 5 mg every 4 hours as needed for pain. I would like for him to try this first as opposed to the intravenous morphine and he understands. 7. Urinalysis performed after catheter insertion prior to surgery is abnormal. Continue intravenous ceftezole and. Await urine culture 8. As patient at present is on IV pressors I would recommend maintaining his [place] catheter.
[2017-11-07 07:54] LABS: Basophils % 0.1 % (0.1-2.0); Eosinophils # 0.2 K/mm3 (0.0-0.4); Eosinophils % 0.9 % (0.1-12.0); Hematocrit 28.5 % (42.0-52.0); Hemoglobin 9.1 g/dL (14.1-18.0); Lymphocytes % 3.9 K/mm3 (10-50); Mean Corpuscular HGB Conc 31.8 g/dL (31.8-35.4); Mean Corpuscular Hemoglobin 28.9 pg (27.0-31.2); Mean Corpuscular Volume 90.8 fl (80-94); Mean Platelet Volume 8.4 fl (7.4-10.4); Monocytes # 1.5 K/mm3 (0.1-1.0); Monocytes % 5.9 % (1.7-9.3); Neutrophils # 22.5 K/mm3 (1.8-7.8); Neutrophils % 89.3 % (37.0-80.0); Platelet Count 132 K/mm3 (142-424); Red Blood Count 3.14 M/mm3 (4.60-6.20); Red Cell Distribution Width 17.1 % (11.5-17.5); White Blood Count 25.2 K/mm3 (4.8-10.8)
[2017-11-07 07:57] LABS: Albumin/Globulin Ratio 0.4 (1.1-1.8); Anion Gap 8.4 mEq/L (5-15); Bilirubin,Total 1.3 mg/dL (0.2-1.0); Calcium 7.7 mg/dL (8.5-10.1); Globulin 5.1 gm/dl (1.3-3.2); Potassium 4.4 mmoL/L (3.5-5.1); Total Protein,Serum 7.1 gm/dL (6.4-8.2)
[2017-11-07 10:08] LABS: Hypochromasia 1+; Lymphocytes % 4 % (10-50); Monocytes % 4 % (2-9); Neutrophils % 90 % (42-76); Total Cells Counted 100
--- NOTE | 2017-11-07 10:43 | Pharmacy Consult Notes ---
- Pharmacy Consult Date: 11/07/17 Time: 10:41 Referring provider: DR. GRAYSON Reason for Consult:: VANCOMYCIN DOSING Allergies and ADEs:: Allergies Allergy/AdvReac Type Severity Reaction Status Date / Time No Known Allergies Allergy Verified 11/05/17 17:03 Home Medications:: Home Medications Medication Instructions Recorded Confirmed Type Cholecalciferol (Vitamin D3) 50,000 unit PO PRAKASH 11/05/17 11/06/17 History [Vitamin D3 50,000 unit Cap] Furosemide [Furosemide 40MG tAB] 40 mg PO DAILY 11/05/17 11/05/17 History Propranolol HCl 10 mg PO BID 11/05/17 11/06/17 History Spironolactone 100 mg PO DAILY 11/05/17 11/06/17 History Height: 1.68 m Weight: 51.341 kg Laboratory Results:: Laboratory Results - last 24 hr 11/05/17 18:00: Urine Color Yellow, Urine Appearance Clear, Urine pH 6.5, Ur Specific [place] 1.015, Urine Protein Negative, Urine Glucose (UA) Negative, Urine Ketones Negative, Urine Blood Negative, Urine Nitrate Negative, Urine Bilirubin Negative, Urine Urobilinogen 0.2, Ur Leukocyte Esterase 1+ A, Urine RBC None, Urine WBC 5-10, Ur Squamous Epith Cells None, Urine Bacteria 3+ 11/06/17 13:45: Urine Color Yellow, Urine Appearance Sl cloudy, Urine pH 7.0, Ur Specific [place] 1.010, Urine Protein Negative, Urine Glucose (UA) Negative, Urine Ketones Negative, Urine Blood Trace-i, Urine Nitrate Negative, Urine Bilirubin Negative, Urine Urobilinogen 0.2, Ur Leukocyte Esterase 3+ A, Urine RBC Occasional, Urine WBC Occasional, Ur Squamous Epith Cells None, Urine Bacteria 2+ A 11/07/17 07:20: WBC 25.2 H* D, RBC 3.14 L, Hgb 9.1 L, Hct 28.5 L, MCV 90.8, MCH 28.9, MCHC 31.8, RDW 17.1, Plt Count 132 L, MPV 8.4, Neut % (Auto) 89.3 H, Lymph % (Auto) 3.9 L, [place] % (Auto) 5.9, Eos % (Auto) 0.9, Baso % (Auto) 0.1, Neut # (Auto) 22.5 H, Lymph # (Auto) 1.0, [place] # (Auto) 1.5 H, Eos # (Auto) 0.2 , Baso # (Auto) 0.0, Total Counted 100, Neutrophils % (Manual) 90 H, Band Neutrophils % 1.0, Lymphocytes % (Manual) 4 L, Monocytes % (Manual) 4, Metamyelocytes % 1.0, Platelet Estimate Slight decrease, Hypochromasia 1+, Schistocytes 1+ 11/07/17 07:20: Sodium 134 L, Potassium 4.4, Chloride 104, Carbon Dioxide 26, Anion Gap 8.4, BUN 44 H, Creatinine 1.52 H, Estimated Creat Clear 35, Estimated GFR 46 L, Est GFR ( Amer) 56 L, Glucose 100, Calcium 7.7 L, Total Bilirubin 1.3 H, AST 37, ALT 20 D, Alkaline Phosphatase 135 H, Total Protein 7.1, Albumin 2.0 L D, Globulin 5.1 H, Albumin/Globulin Ratio 0.4 L Medical History: Reports:: Atrial Fibrillation Denies:: Cancer, Diabetes Mellitus Type 1, Diabetes Mellitus Type 2, Internal Pacemaker, MRSA Assessment and Plan (1) Closed left hip fracture Current visit: Yes Status: Acute Qualifiers: Encounter type: initial encounter Qualified Code(s): S72.002A - Fracture of unspecified part of neck of left femur, initial encounter for closed fracture Category: Medical Code(s): S72.002A - Fracture of unspecified part of neck of left femur, initial encounter for closed fracture (2) Hepatic cirrhosis due to chronic hepatitis C infection Current visit: Yes Status: Acute Category: Medical Code(s): B18.2 - Chronic viral hepatitis C; K74.60 - Unspecified cirrhosis of liver (3) Urinary tract infection Current visit: Yes Status: Suspected Category: Medical Code(s): N39.0 - Urinary tract infection, site not specified (4) Right clavicle fracture Current visit: Yes Status: Chronic Category: Medical Code(s): S42.001A - Fracture of unspecified part of right clavicle, initial encounter for closed fracture - Assessment and plan all Dx Assessment and Plan for all problems:: BASED ON PATIENT FACTORS, RECOMMEND INITIATING VANCOMYCIN AT 1,000MG IV Q36H. PHARMACY WILL FOLLOW AND ADJUST DOSAGE APPROPRIATE. -JOSE NORTON PHARMD
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
[2017-11-08 06:15] LABS: Basophils % 0.2 % (0.1-2.0); Eosinophils # 0.4 K/mm3 (0.0-0.4); Eosinophils % 3.9 % (0.1-12.0); Hemoglobin 8.9 g/dL (14.1-18.0); Lymphocytes # 0.8 K/mm3 (0.7-4.5); Lymphocytes % 8.2 K/mm3 (10-50); Mean Corpuscular HGB Conc 33.9 g/dL (31.8-35.4); Mean Corpuscular Volume 91.4 fl (80-94); Mean Platelet Volume 8.4 fl (7.4-10.4); Monocytes # 0.6 K/mm3 (0.1-1.0); Monocytes % 6.3 % (1.7-9.3); Neutrophils # 7.8 K/mm3 (1.8-7.8); Neutrophils % 81.4 % (37.0-80.0); Platelet Count 107 K/mm3 (142-424); Red Blood Count 2.87 M/mm3 (4.60-6.20); Red Cell Distribution Width 15.7 % (11.5-17.5); White Blood Count 9.6 K/mm3 (4.8-10.8)
[2017-11-08 06:33] LABS: Hematocrit 26.2 % (42.0-52.0)
[2017-11-08 06:35] LABS: Albumin Level 1.9 gm/dL (3.4-5.0); Albumin/Globulin Ratio 0.4 (1.1-1.8); Anion Gap 6.7 mEq/L (5-15); Bilirubin,Total 1.1 mg/dL (0.2-1.0); Calcium 7.9 mg/dL (8.5-10.1); Globulin 5.1 gm/dl (1.3-3.2); Potassium 4.7 mmoL/L (3.5-5.1)
--- NOTE | 2017-11-08 07:27 | Progress Note ---
Internal Medicine - PN: Subj *Date: 11/08/17 *Time: 07:23 Interval history: Patient has no complaints this morning. He has been weaned from the phenylephrine drip. Yesterday afternoon he was able to be transferred to chair. He required 4 staff members to get him back from chair to bed. Nursing staff reports patient seems to be very afraid when attempting to ambulate. Physical therapy evaluation is complete. Urine culture has grown staph epidermidis with a broad range of antibiotic sensitivities. In addition to discomfort in the left hip patient complains of some pain in the left heel. Exam Vital signs and Labs for Last 24 Hours: Temp Pulse Resp BP Pulse Ox 98.4 F 84 22 125/87 95 11/08/17 00:00 11/08/17 07:00 11/08/17 07:00 11/08/17 07:00 11/08/17 07:00 Laboratory Results - last 24 hr 11/05/17 18:00: Urine Color Yellow, Urine Appearance Clear, Urine pH 6.5, Ur Specific [place] 1.015, Urine Protein Negative, Urine Glucose (UA) Negative, Urine Ketones Negative, Urine Blood Negative, Urine Nitrate Negative, Urine Bilirubin Negative, Urine Urobilinogen 0.2, Ur Leukocyte Esterase 1+ A, Urine RBC None, Urine WBC 5-10, Ur Squamous Epith Cells None, Urine Bacteria 3+ 11/07/17 07:20: WBC 25.2 H* D, RBC 3.14 L, Hgb 9.1 L, Hct 28.5 L, MCV 90.8, MCH 28.9, MCHC 31.8, RDW 17.1, Plt Count 132 L, MPV 8.4, Neut % (Auto) 89.3 H, Lymph % (Auto) 3.9 L, [place] % (Auto) 5.9, Eos % (Auto) 0.9, Baso % (Auto) 0.1, Neut # (Auto) 22.5 H, Lymph # (Auto) 1.0, [place] # (Auto) 1.5 H, Eos # (Auto) 0.2 , Baso # (Auto) 0.0, Total Counted 100, Neutrophils % (Manual) 90 H, Band Neutrophils % 1.0, Lymphocytes % (Manual) 4 L, Monocytes % (Manual) 4, Metamyelocytes % 1.0, Platelet Estimate Slight decrease, Hypochromasia 1+, Schistocytes 1+ 11/07/17 07:20: Sodium 134 L, Potassium 4.4, Chloride 104, Carbon Dioxide 26, Anion Gap 8.4, BUN 44 H, Creatinine 1.52 H, Estimated Creat Clear 35, Estimated GFR 46 L, Est GFR ( Amer) 56 L, Glucose 100, Calcium 7.7 L, Total Bilirubin 1.3 H, AST 37, ALT 20 D, Alkaline Phosphatase 135 H, Total Protein 7.1, Albumin 2.0 L D, Globulin 5.1 H, Albumin/Globulin Ratio 0.4 L 11/08/17 06:00: WBC 9.6 D, RBC 2.87 L, Hgb 8.9 L, Hct 26.2 L, MCV 91.4, MCH 31.0, MCHC 33.9, RDW 15.7, Plt Count 107 L, MPV 8.4, Neut % (Auto) 81.4 H, Lymph % (Auto) 8.2 L, [place] % (Auto) 6.3, Eos % (Auto) 3.9, Baso % (Auto) 0.2, Neut # (Auto) 7.8, Lymph # (Auto) 0.8, [place] # (Auto) 0.6, Eos # (Auto) 0.4, Baso # (Auto) 0.0 11/08/17 06:00: Sodium 136, Potassium 4.7, Chloride 105, Carbon Dioxide 29, Anion Gap 6.7, BUN 32 H D, Creatinine 1.31 H, Estimated Creat Clear 43, Estimated GFR 55 L, Est GFR ( Amer) 66, Glucose 115 H, Calcium 7.9 L, Total Bilirubin 1.1 H, AST 43 H, ALT 20, Alkaline Phosphatase 130 H, Total Protein 7.0, Albumin 1.9 L, Globulin 5.1 H, Albumin/Globulin Ratio 0.4 L I & O for Last 24 hours: Intake & Output 11/05/17 11/06/17 11/07/17 11/08/17 11:59 11:59 11:59 11:59 Intake Total 918 / 918 5150 / 5150 2920 / 2920 Output Total 100 / 100 200 / 200 1025 / 1025 Balance 818 / 818 4950 / 4950 1895 / 1895 Weight 104 lb 4 oz 113 lb 3 oz 122 lb 2 oz Microbiology Reports for the Last 24 Hours: Microbiology 11/06/17 13:45 Urine,Catheterized Urine Culture - Preliminary Gram Positive Cocci 11/05/17 18:00 Urine,Clean Catch Urine Culture - Final Staphylococcus epidermidis Narrative: He is awake and alert sitting up in bed. Lungs are clear. Heart rate is irregular. He is neurovascularly intact in the left foot. He has tenderness with palpation of the heel. ankle range of motion is intact and pain-free. Assessment and Plan (1) Closed left hip fracture Current visit: Yes Status: Acute Qualifiers: Encounter type: initial encounter Qualified Code(s): S72.002A - Fracture of unspecified part of neck of left femur, initial encounter for closed fracture Category: Medical Code(s): S72.002A - Fracture of unspecified part of neck of left femur, initial encounter for closed fracture (2) Hepatic cirrhosis due to chronic hepatitis C infection Current visit: Yes Status: Acute Category: Medical Code(s): B18.2 - Chronic viral hepatitis C; K74.60 - Unspecified cirrhosis of liver (3) Urinary tract infection Current visit: Yes Status: Suspected Category: Medical Code(s): N39.0 - Urinary tract infection, site not specified (4) Right clavicle fracture Current visit: Yes Status: Chronic Category: Medical Code(s): S42.001A - Fracture of unspecified part of right clavicle, initial encounter for closed fracture (5) Staphylococcal infection Current visit: Yes Status: Acute Category: Medical Code(s): B95.8 - Unspecified staphylococcus as the cause of diseases classified elsewhere (6) Protein calorie malnutrition Current visit: Yes Status: Acute Category: Medical Code(s): E46 - Unspecified protein-calorie malnutrition (7) Atrial fibrillation Current visit: Yes Status: Acute Category: Medical Code(s): I48.91 - Unspecified atrial fibrillation - Assessment and plan all Dx Assessment and Plan for all problems:: 1. Continue PT 2. Continue aspirin for both DVT prophylaxis postoperatively as well as antiplatelet agent for patient's intermittent atrial fibrillation. Patient's chads vascular score is 1 and that is based on his age. 3. Patient will be started on once daily intravenous Rocephin for his staph epidermidis urinary tract infection 4. Transfer out of stepdown. 5. Consult dietitian as patient is a vegetarian and we need to find ways to significantly increase his caloric intake to allow adequate healing of his fracture.
--- NOTE | 2017-11-08 14:35 | Progress Note ---
Subjective Date: 11/08/17 Time: 14:26 Principal diagnosis: 1) Left hip intertrochanteric fx--stablized with gamma nail Interval history: Nurses report patient is complaining of being constantly in pain but denied that the pain is from the hip or the right shoulder--when I have questioned him , he seems to focus of the left ankle as the source of his pain. He complains that he is "dying" and when I attempted to press this further and find out why he feels this way, he offers that he feels his care is substandard and people are trying to "kill him". He also complains about phlebotomy stating that he has been phlebotomized 4 times today and he finds that outrageous. I spent several minutes trying to very politely and submissive reason with him and tried to assure him that we are here to help him. He asked for water which I have given him and then makes a complaint significantly out of proportion that the water does not have ice. He absolutely refuses to try to sit in a chair. I understand he did sit in one yesterday but it was quite difficult getting back into bed. EXAMINATION the patient is alert and oriented to his situation and to his location. His surgical incisions are clean and dry. There is edema in the thigh and this is consistent with postoperative changes and the fracture itself. I do not detect any source of ankle tenderness or deformity. Pedal pulses are intact and he appears to be sensate. No evidence of venous cords, or clinical evidence of DVT. Urine culture is grown staph epidermidis and Dr. Zamora is treating this with Rocephin. Hematocrit approximately 26% ASSESSMENT stable orthopedically but somewhat more argumentative today. Atrial fibrillation and urinary tract infection being treated. PLAN we will change the dressing today and attempt to set the patient at bedside if we cannot get him in a chair. Agree with Dr. Zamora that increasing his protein would be very beneficial toward wound healing. We will see him in the morning and if he is still complaining of ankle pain, will obtain x-rays of the ankle. PN: Obj Ex Vital signs: Temp Pulse Resp BP Pulse Ox 98.7 F 93 H 18 143/66 94 L 11/08/17 11:48 11/08/17 11:48 11/08/17 11:48 11/08/17 11:48 11/08/17 11:48 - Urinary Catheter Management Sparks Cath placed during this visit: no Progress Note: A&P (1) Closed left hip fracture Status: Acute Current Visit: Yes (2) Hepatic cirrhosis due to chronic hepatitis C infection Status: Acute Current Visit: Yes (3) Urinary tract infection Status: Suspected Current Visit: Yes (4) Right clavicle fracture Status: Chronic Current Visit: Yes (5) Staphylococcal infection Status: Acute Current Visit: Yes (6) Protein calorie malnutrition Status: Acute Current Visit: Yes (7) Atrial fibrillation Status: Acute Current Visit: Yes
--- NOTE | 2017-11-09 07:11 | Progress Note ---
Internal Medicine - PN: Subj *Date: 11/09/17 *Time: 07:09 Interval history: Patient had an uneventful day yesterday. Apparently by the afternoon he was upset by the care he was receiving calling it "substandard". However by the evening patient was minimizing his complaints and was once again expressing how happy he was with the care he was getting here. He is appreciative of the care he was getting this morning as well. He did not get out of bed yesterday and tells me it is because of left heel pain. He had mentioned this yesterday morning and also mentioned this to the orthopedic service. As he is continuing to have pain today we will get x-rays. Otherwise patient has no complaints except for pain coming from the left hip. He has been medicated with oral narcotics. Exam Vital signs and Labs for Last 24 Hours: Temp Pulse Resp BP Pulse Ox 98.2 F 76 20 106/53 95 11/09/17 04:00 11/09/17 04:00 11/09/17 04:00 11/09/17 04:00 11/09/17 04:00 Laboratory Results - last 24 hr 11/08/17 13:47: Troponin I < 0.02 I & O for Last 24 hours: Intake & Output 11/06/17 11/07/17 11/08/17 11/09/17 11:59 11:59 11:59 11:59 Intake Total 918 / 918 5150 / 5150 3380 / 3380 1122 / 1122 Output Total 100 / 100 200 / 200 1200 / 1200 350 / 350 Balance 818 / 818 4950 / 4950 2180 / 2180 772 / 772 Weight 104 lb 4 oz 113 lb 3 oz 122 lb 2 oz Microbiology Reports for the Last 24 Hours: Microbiology 11/06/17 13:45 Urine,Catheterized Urine Culture - Final Staphylococcus epidermidis 11/05/17 18:00 Urine,Clean Catch Urine Culture - Final Staphylococcus epidermidis Narrative: He looks well. Abdomen is mildly distended with accumulation of ascites. Assessment and Plan (1) Closed left hip fracture Current visit: Yes Status: Acute Qualifiers: Encounter type: initial encounter Qualified Code(s): S72.002A - Fracture of unspecified part of neck of left femur, initial encounter for closed fracture Category: Medical Code(s): S72.002A - Fracture of unspecified part of neck of left femur, initial encounter for closed fracture (2) Hepatic cirrhosis due to chronic hepatitis C infection Current visit: Yes Status: Acute Category: Medical Code(s): B18.2 - Chronic viral hepatitis C; K74.60 - Unspecified cirrhosis of liver (3) Urinary tract infection Current visit: Yes Status: Suspected Category: Medical Code(s): N39.0 - Urinary tract infection, site not specified (4) Right clavicle fracture Current visit: Yes Status: Chronic Category: Medical Code(s): S42.001A - Fracture of unspecified part of right clavicle, initial encounter for closed fracture (5) Staphylococcal infection Current visit: Yes Status: Acute Category: Medical Code(s): B95.8 - Unspecified staphylococcus as the cause of diseases classified elsewhere (6) Protein calorie malnutrition Current visit: Yes Status: Acute Category: Medical Code(s): E46 - Unspecified protein-calorie malnutrition (7) Atrial fibrillation Current visit: Yes Status: Acute Category: Medical Code(s): I48.91 - Unspecified atrial fibrillation - Assessment and plan all Dx Assessment and Plan for all problems:: 1. X-ray of left ankle and heel today 2. Echocardiogram today due to atrial fibrillation detected prior to surgery 3. Care management has been consulted as patient will need intermediate facility and I anticipate discharge tomorrow
--- NOTE | 2017-11-09 12:58 | Progress Note ---
Subjective Date: 11/09/17 Time: 12:55 Principal diagnosis: 1) Left hip intertrochanteric fx--stablized with gamma nail PN: Obj Ex Vital signs: Temp Pulse Resp BP Pulse Ox 98.2 F 67 18 106/56 95 11/09/17 12:00 11/09/17 12:00 11/09/17 12:00 11/09/17 12:00 11/09/17 12:00 Narrative: Patient's white count is down to 9600 from 25,000 yesterday. He is alert oriented and cooperative. His personality changes from yesterday have resolved and he is back at his baseline. His incisions are clean slight drainage from the most superior incision which looks to be a serous drainage. No evident DVT. He notes his ankle pain has improved greatly and now feels it is more heel pain. Ankle range of motion seems unrestricted as does subtalar motion. He is nontender medial lateral malleolus and the ATFL, PTFL, CFL ligaments as well as the deltoid ligament. Pedal pulses are intact and he is sensate to light touch. Mild tenderness in the heel pad none along the plantar fascia. X-rays are reviewed and no acute or chronic changes of the ankle are seen which would account for his pain. He does have a tibial nail present and well-healed tibia fracture with appropriate callus. - Urinary Catheter Management Sparks Cath placed during this visit: no Progress Note: A&P (1) Closed left hip fracture Status: Acute Assessment and plan: We have discussed the decreased protein status/malnourishment in detail. Although the patient is a vegetarian, he does agreed to trying some eggs as a protein source. In the meantime, recommend continuing other protein sources as well. I have encountered the dietitian in the hallway and discussed the situation with her as well. From an orthopedic standpoint, the patient can be transferred at the time Current Visit: Yes (2) Hepatic cirrhosis due to chronic hepatitis C infection Status: Acute Current Visit: Yes (3) Urinary tract infection Status: Suspected Current Visit: Yes (4) Right clavicle fracture Status: Chronic Current Visit: Yes (5) Staphylococcal infection Status: Acute Current Visit: Yes (6) Protein calorie malnutrition Status: Acute Current Visit: Yes (7) Atrial fibrillation Status: Acute Current Visit: Yes
--- NOTE | 2017-11-09 21:37 | Cardiology Report ---
PROCEDURE: 2-D M-mode and color Doppler study INDICATIONS FOR THE TEST: Chest pain COPD Heart Murmur Tobacco Smoking+ Palpitations+ Fatigue Syncope Edema+ Hypertension+Diabetes Mellitus Rheumatic Fever SOB+PACHECO+Obesity Hyperlipidemia Family History HD Additional History Hepatitis C, Ascites of liver PATIENT INFORMATION HEIGHT: 67 WEIGHT: 122 GENDER: Male B/P: 106/53 2-D/M-MODE INTERPRETATION: 2-D MEASUREMENTS OBSERVED VALUES IN CMS Right Ventricular Dimension (RVDd) 2.1 Interventricular Septum (Thickness)(IVsd) 1.0 Left Ventricular Internal Dimensions(LVIDd) 3.3 Left Ventricular Posterior Wall (Thickness)(LVPWd) 1.0 Aortic Root 2.8 Aortic Cusp Separation 2.0 Left Atrial Dimensions (LAD) 3.6 2D 1. Left atrium is normal size, left ventricle is normal size, there is no concentric left ventricular hypertrophy, visually estimated ejection fraction 55% with no signal wall motion abnormality. 2. The right atrium and right ventricle are normal size and contractility. 3. The aortic valve is minimally thickened and fibrosed. 4. The mitral and tricuspid valve are grossly normal. 5. The pulmonic valve is poorly visualized. 6. No significant pericardial effusion noted. DOPPLER INTERROGATION: Doppler interrogation of the aortic, mitral and tricuspid valvular presence of mild mitral and tricuspid regurgitation, tricuspid regurgitant jet velocity is insufficient for calculation of the right ventricular systolic pressure, diastolic parameters are inconclusive. CONCLUSION: 1. Normal left ventricular size, preserved left ventricular systolic function, visually estimated ejection fraction 55% with no obvious regional wall motion abnormality, diastolic parameters are inconclusive. 2. Mild mitral and tricuspid regurgitation 3. No significant pericardial effusion noted.
--- NOTE | 2017-11-10 07:35 | Discharge Summary ---
General - General Admission date:: 11/05/17 Discharge date: 11/10/17 HPI HPI: 67-year-old male with cirrhosis of the liver secondary to hepatitis C infection that has been successfully treated with antiviral therapy at [facility] was brought to the emergency department yesterday after he had tripped over his puppy at home resulting in a fall and landing on his left hip. Injury had occurred at some point in the previous 24 hours. Patient was found to have an intertrochanteric left hip fracture and has been admitted for surgical repair. Other than pain patient has no complaints this morning. He denies syncope, chest pain, shortness of breath. Hospital Course Hospital Course: Patient was admitted on the evening of the after diagnosis of hip fracture. On the morning of the he was evaluated. Patient underwent surgery by Dr. Prajapati on the afternoon of the for nailing of the intertrochanteric fracture of the left hip. Preoperatively he was identified as having atrial fibrillation. During the surgery patient's blood pressure decreased and he required intravenous phenylephrine to keep systolics in the 90s. Postoperatively he remained hypotensive and was given to 1 L fluid boluses in addition to the phenylephrine. Patient's blood pressure remained low and decision was made to admit him to the stepdown unit postoperatively on a phenylephrine drip with continued IV fluids. Aspirin was chosen as DVT prophylaxis due to his underlying cirrhosis and esophageal varices history. Aspirin was also considered treatment as an anticoagulant for his age fibrillation and his CHADS-VASC score was 1. On postop day 1 PT was consulted for evaluation. Patient was felt to be appropriate for retirement facility placement. Patient was weaned from the phenylephrine drip within 36 hours. Blood pressures remained in the 90s-140 systolic. Patient was restarted on spironolactone at a dose of 25 mg and at discharge this will be increased to 50 mg. Propranolol was held for most of the hospitalization due to his hypotension but this will all be restarted at discharge. Patient required oral narcotics for pain control. His participation in rehabilitation was poor due to pain. Patient will need a lot of encouragement. Of note patient is a vegetarian and his diet should be a low sodium high protein diet. Patient was encouraged to drink milk while at the facility. Rehab potential: Fair Mental status: Average Prognosis: Fair Objective Vital signs: Temp Pulse Resp BP Pulse Ox 98.1 F 76 16 126/77 96 11/10/17 04:00 11/10/17 04:00 11/10/17 04:00 11/10/17 04:00 11/10/17 04:00 DS: Diagnosis - Discharge Diagnosis (1) Closed left hip fracture Status: Acute (2) Hepatic cirrhosis due to chronic hepatitis C infection Status: Acute (3) Urinary tract infection Status: Suspected (4) Right clavicle fracture Status: Chronic (5) Staphylococcal infection Status: Acute (6) Protein calorie malnutrition Status: Acute (7) Atrial fibrillation Status: Acute Discharge Plan - Patient Discharge Instructions ACTIVITY: Continue current activity DIET: continue same diet Patient Instructions: Hip Fracture, Cirrhosis, Atrial Fibrillation, Open Reduction and Internal Fixation Surgery, Surgical Site Infection - Follow up Plan Follow up with: Antony Zamora MD [Staff Physician] - Disposition: [facility] Home Medications: Home Medications Medication Instructions Recorded Confirmed Type Cholecalciferol (Vitamin D3) 50,000 unit PO PRAKASH 11/05/17 11/06/17 History [Vitamin D3 50,000 unit Cap] Furosemide [Furosemide 40MG tAB] 40 mg PO DAILY 11/05/17 11/05/17 History Propranolol HCl 10 mg PO BID 11/05/17 11/06/17 History Spironolactone 100 mg PO DAILY 11/05/17 11/06/17 History Prescriptions/Medication Reconciliation: New Aspirin [Aspirin 325mg Tab] 325 mg PO DAILY tablet Oxycodone HCl [OxyIR 5mg tablet] 5 mg PO Q4HP PRN #120 tab PRN Reason: Severe Pain Spironolactone 50 mg PO DAILY #30 tab Continue Cholecalciferol (Vitamin D3) [Vitamin D3 50,000 unit Cap] 50,000 unit PO PRAKASH Propranolol HCl 10 mg PO BID Discontinued Furosemide [Furosemide 40MG tAB] 40 mg PO DAILY Spironolactone 100 mg PO DAILY
[2017-11-10 07:39] VITALS: BP 100/45
== END 2017-11-10 10:35 ==
LOC: ER 16:52 → 2ND 18:49
PROVIDERS: ADMIT Family Medicine; ATTEND Family Medicine

== ENCOUNTER 2017-11-18 19:13 | Observation (INO) ==
[2017-11-18 20:10] LABS: Basophils % 0.1 % (0.1-2.0); Eosinophils # 0.1 K/mm3 (0.0-0.4); Eosinophils % 1.1 % (0.1-12.0); Lymphocytes # 0.7 K/mm3 (0.7-4.5); Lymphocytes % 5.7 K/mm3 (10-50); Mean Corpuscular HGB Conc 31.7 g/dL (31.8-35.4); Mean Corpuscular Hemoglobin 30.6 pg (27.0-31.2); Mean Corpuscular Volume 96.5 fl (80-94); Mean Platelet Volume 7.8 fl (7.4-10.4); Monocytes # 0.6 K/mm3 (0.1-1.0); Monocytes % 4.8 % (1.7-9.3); Neutrophils # 11.2 K/mm3 (1.8-7.8); Neutrophils % 88.4 % (37.0-80.0); Platelet Count 226 K/mm3 (142-424); Red Blood Count 2.39 M/mm3 (4.60-6.20); Red Cell Distribution Width 20.4 % (11.5-17.5); White Blood Count 12.7 K/mm3 (4.8-10.8)
[2017-11-18 20:13] LABS: Hematocrit 23.1 % (42.0-52.0); Hemoglobin 7.3 g/dL (14.1-18.0)
[2017-11-18 20:29] LABS: Microscopic, Urine URINE MICROSCOPIC (MICROSCOPIC)
[2017-11-18 20:41] LABS: Appearance,Urine CLEAR (Clear); Bilirubin,Urine Negative (Negative); Blood, Urine Negative (Negative); Color,Urine YELLOW (Yellow); Glucose,Urine (UA) Negative (Negative); Ketones,Urine Negative (Negative); Leukocyte Esterase,Urine Negative (Negative); Protein,Urine Negative (Negative); Specific Gravity, Urine 1.015 (1.005-1.030); Urobilinogen,Urine 0.2 EU/dl (0.2)
[2017-11-18 20:42] LABS: INR 1.32 (0.9-1.1); Prothrombin Time 13.5 seconds (9.4-11.8)
[2017-11-18 20:59] LABS: Bacteria,Urine Trace /lpf; Squamous Epithelial Cell,Urine Occasional #/hpf (0-5)
[2017-11-18 21:10] LABS: Alanine Aminotransferase 76 U/L (12-78); Albumin Level 1.9 gm/dL (3.4-5.0); Albumin/Globulin Ratio 0.4 (1.1-1.8); Alkaline Phosphatase 339 U/L (46-116); Amylase 33 U/L (25-125); Anion Gap 9.9 mEq/L (5-15); Aspartate Amino Transferase 100 U/L (15-37); Bilirubin,Direct 2.2 mg/dL (0.0-0.2); Bilirubin,Indirect 1.8 mg/dL (0.0-0.9); Blood Urea Nitrogen 37 mg/dL (7-18); Carbon Dioxide 24 mmol/L (21.0-32.0); Chloride 104 mmol/L (98-107); Globulin 5.3 gm/dl (1.3-3.2); Glucose 111 mg/dL (74-106); Lipase 128 u/L (73-393); Potassium 4.9 mmoL/L (3.5-5.1); Sodium 133 mmol/L (136-145); Total Protein,Serum 7.2 gm/dL (6.4-8.2)
[2017-11-18 21:10] LABS: Lymphocytes % 3 % (10-50); Monocytes % 3 % (2-9); Neutrophils % 94 % (42-76); Total Cells Counted 100
[2017-11-18 21:15] LABS: Anisocytosis 2+; Hypochromasia 2+
--- NOTE | 2017-11-18 21:49 | Emergency Department Note ---
ED Disposition Clinical Impression: Lower gastrointestinal bleed, Hepatic cirrhosis due to chronic hepatitis C infection, Renal insufficiency Anemia Qualifiers: Anemia type: unspecified type Qualified Code(s): D64.9 - Anemia, unspecified Disposition: Admitted as Observation Condition on Discharge: Serious - Critical Care Critical Care Time: No Attestation: On 11/18/17, the high probability of a clinically significant, sudden or life threatening deterioration of the following system(s) required my full and direct attention, intervention and personal management. The time I documented below is in addition to time spent performing reported procedures but includes the following listed in this critical care notation. Medical Decision Making - Medical Records Medical records reviewed: Yes: I reviewed the patient's medical records. - Fredi Inquiry Pt receiving controlled substance: No Vital Signs: 11/18/17 19:14 11/18/17 20:14 11/18/17 20:34 Temperature 97.8 F Temperature Source Rectal Pulse Rate [Right Brachial] 100 H 71 61 Respiratory Rate 18 16 16 Blood Pressure [Right Arm] 101/59 102/69 102/69 Blood Pressure Mean [Right Arm] 73 80 80 Blood Pressure Source [Right Arm] Automatic Cuff Automatic Cuff Blood Pressure Position [Right Arm] Supine Sitting 02 Sat by Pulse Oximetry 96 97 95 Oxygen Delivery Method Nasal Cannula Nasal Cannula Oxygen Flow Rate (LPM) 4 4 11/18/17 21:03 11/18/17 21:31 11/18/17 22:03 Temperature Temperature Source Pulse Rate [Right Brachial] 67 73 77 Respiratory Rate 20 16 16 Blood Pressure [Right Arm] 103/67 92/61 91/61 Blood Pressure Mean [Right Arm] 79 71 71 Blood Pressure Source [Right Arm] Automatic Cuff Blood Pressure Position [Right Arm] 02 Sat by Pulse Oximetry 99 99 98 Oxygen Delivery Method Nasal Cannula Oxygen Flow Rate (LPM) 3 - Lab Data Lab results reviewed: Yes: I reviewed the patient's lab results. Lab Results 11/18/17 19:55: WBC 12.7 H, RBC 2.39 L, Hgb 7.3 L*, Hct 23.1 L*, MCV 96.5 H, MCH 30.6, MCHC 31.7 L, RDW 20.4 H, Plt Count 226, MPV 7.8, Neut % (Auto) 88.4 H , Lymph % (Auto) 5.7 L, [place] % (Auto) 4.8, Eos % (Auto) 1.1, Baso % (Auto) 0.1, Neut # (Auto) 11.2 H, Lymph # (Auto) 0.7, [place] # (Auto) 0.6, Eos # (Auto) 0.1, Baso # (Auto) 0.0, Total Counted 100, Neutrophils % (Manual) 94 H, Lymphocytes % (Manual) 3 L, Monocytes % (Manual) 3, Platelet Estimate Normal, RBC Morphology Not Reportable, Hypochromasia 2+, Anisocytosis 2+, Microcytosis 2+ 11/18/17 19:55: PT 13.5 H, INR 1.32 H 11/18/17 20:15: Stool Occult Blood Positive A 11/18/17 20:15: Urine Color Yellow, Urine Appearance Clear, Urine pH 6.0, Ur Specific [place] 1.015, Urine Protein Negative, Urine Glucose (UA) Negative, Urine Ketones Negative, Urine Blood Negative, Urine Nitrate Negative, Urine Bilirubin Negative, Urine Urobilinogen 0.2, Ur Leukocyte Esterase Negative, Urine RBC None, Urine WBC None, Ur Squamous Epith Cells Occasional, Urine Bacteria Trace 11/18/17 20:38: Sodium 133 L, Potassium 4.9, Chloride 104, Carbon Dioxide 24, Anion Gap 9.9, BUN 37 H, Creatinine 1.27, Estimated Creat Clear 51, Estimated GFR 57 L, Est GFR ( Amer) 69, Glucose 111 H, Calcium 8.0 L, Total Bilirubin 4.0 H, Direct Bilirubin 2.2 H, Indirect Bilirubin 1.8 H, AST 100 H, ALT 76, Alkaline Phosphatase 339 H, Troponin I < 0.02, Total Protein 7.2, Albumin 1.9 L, Globulin 5.3 H, Albumin/Globulin Ratio 0.4 L, Amylase 33, Lipase 128 11/18/17 20:38: Lactic Acid 1.7 11/18/17 20:38: Ammonia 19 11/18/17 20:38: Blood Type O Negative, Antibody Screen Negative, Crossmatch ([facility] ) See Detail 11/18/17 20:38: Crossmatch ([facility]) See Detail Result diagrams: 11/18/17 19:55 11/18/17 20:38 Orders (Tests/Meds): ED MEDICATIONS Generic Name Dose Route Start Last Admin Trade Name Freq PRN Reason Stop Dose Admin Sodium Chloride 250 mls @ 25 mls/hr 11/18/17 22:00 Sod Chlor 0.9% 250ml Bag IV 11/19/17 21:59 .Q10H JAZZ Sodium Chloride 1,000 mls @ 999 mls/hr 11/18/17 22:00 11/18/17 21:54 Sod Chlor 0.9% 1000ml Bag IV 11/18/17 23:00 999 mls/hr .Q1H1M JAZZ Administration Discontinued Medications Generic Name Dose Route Start Last Admin Trade Name Freq PRN Reason Stop Dose Admin Sodium Chloride 1,000 mls @ 999 mls/hr 11/18/17 20:45 11/18/17 20:34 Sod Chlor 0.9% 1000ml Bag IV 11/18/17 21:45 999 mls/hr .Q1H1M JAZZ Administration ORDERS Category Date Time Status Transfuse RBC's [Red Blood Cells] Stat BBK 11/18/17 20:38 Results Type and Screen Stat BBK 11/18/17 20:[address] abdomen pelvis wo con Stat Cat Scan 11/18/17 19:[address] head/brain wo con Stat Cat Scan 11/18/17 19:37 Taken XR chest AP Stat Exams 11/18/17 19:37 Taken Blood Culture Stat Micro 11/18/17 20:22 Ordered 12-lead EKG Request [ECG Request by /Whit] Stat Y 11/18/17 19:37 Ordered - Radiology Data #1 Image(s): Chest Image Reviewed: Yes I reviewed the patient's radiology image Preliminary Findings: Normal/NAD - CT Data CT Scan: Head, Abdomen, Pelvis Time Received: 22:[address] Reviewed: Yes: I have viewed the radiologist's interpretation Preliminary Findings: Abnormal (see report) - ECG Data Tracing #1 I reviewed this ECG and interpreted as documented below: Normal Sinus Rhythm: Yes Ischemic changes: non-specific ST-T wave changes - Physician Consults Physician Consulted: sheba Reason -: Admission GI Bleed HPI - General Chief complaint: Altered Mental Status Stated complaint: ams Time Seen by Provider: 11/18/17 21:44 Mode of Arrival: EMS Limitations: Physical Limitations Description of Symptoms (Recalled from ER Triage Doc. by RN): Report from shelter was patient has had bloody stool x3 days, sample pending. Was A&O earlier today, then reports in the last hour he was found in his wheelchair slumped over with pinpoint pupils and slurred speech. 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 Pt not alert x4 at this time but does follow commands. Pt normally has a speech problem as reported in his hx. - History of Present Illness HPI Narrative: pt sent from [facility] with acute change in mental status and has lower gi bleed- no chest pain reported and no vomiting MD complaint: gross hematochezia Onset (ago): hour(s) Consistency: intermittent Severity: moderate Context: liver disease Associated symptoms: nausea Treatments Prior to Arrival: none - Related Data Home Medications Medication Instructions Recorded Confirmed Cholecalciferol (Vitamin D3) 50,000 unit PO PRAKASH 11/05/17 11/18/17 [Vitamin D3 50,000 unit Cap] Propranolol HCl 10 mg PO BID 11/05/17 11/18/17 Acetaminophen 500 mg PO Q6 PRN 11/18/17 11/18/17 Aspirin [Aspirin 325mg Tab] 325 mg PO DAILY 11/18/17 11/18/17 Ciprofloxacin HCl [Cipro 250mg Tab] 250 mg PO BID 11/18/17 11/18/17 Docusate Sodium [Colace 250mg 250 mg PO DAILY PRN 11/18/17 11/18/17 capsule] Ipratropium/Albuterol Sulfate 3 ml IH TID 11/18/17 11/18/17 [Duoneb 3mL neb] Nicotine [Nicotine Patch 21 mg TD DAILY 11/18/17 11/18/17 21mg/24hrs] Oxycodone HCl [Oxycodone (IR) 5mg 5 mg PO QID 11/18/17 11/18/17 Cap] Propranolol HCl 10 mg PO DAILY 11/18/17 11/18/17 Spironolactone 50 mg PO DAILY 11/18/17 11/18/17 guaiFENesin [Mucinex 600mg tablet] 600 mg PO BID 11/18/17 11/18/17 Previous Rx's Medication Instructions Recorded Oxycodone HCl [OxyIR 5mg tablet] 5 mg PO Q4HP PRN #120 tab 11/10/17 Allergies Allergy/AdvReac Type Severity Reaction Status Date / Time No Known Allergies Allergy Verified 11/05/17 17:03 [facility] History I have reviewed the patient's past medical history: Yes Medical History: Reports:: Atrial Fibrillation Denies:: Cancer, Diabetes Mellitus Type 1, Diabetes Mellitus Type 2, Internal Pacemaker, MRSA Comment: Hepatitis C Other Surgeries: No: Pacemaker Amputation: No Fractures: Yes (BOTH LEGS; RT RADIAL, LT ULNA, NOSE, JAW, TED:BLE 2INCHES SHORTER AFTER F) Comment: Right herniorrhaphy, banding of esophageal varices - Social History Smoking Status: Former smoker Alcohol Intake: former Occupational Status: retired Housing: house - Psychiatric History Expresses thoughts of harming self/others: None Suicide Plan Description: No Plan ROS Obtained: Yes All systems reviewed & no additional complaints - Constitutional Constitutional: Denies fever(s) - Eyes Eyes: Denies change in vision - ENT Ears, Nose, Mouth, and Throat: Denies epistaxis - Cardiovascular Cardiovascular: Denies chest pain - Respiratory Respiratory: No cough - Gastrointestinal Gastrointestingal: Reports: abdominal pain, black, tarry stools, vomiting - Genitourinary Male Genitourinary: Denies hematuria - Musculoskeletal Musculoskeletal: Denies joint pain, Denies joint swelling - Integumentary/Breasts Skin/Breast: Denies rash - Neurologic Neurologic: Denies seizure-like activity Physical Exam - General General appearance: alert, in no apparent distress, cachectic - Head Head exam: normocephalic - Eye Eye exam: Present: PERRL, EOMI, scleral icterus - ENT ENT exam: Present: mucous membranes dry - Neck Neck exam: Present: trachea midline - Respiratory Respiratory exam: Present: normal lung sounds bilaterally. Absent: respiratory distress - Cardiovascular Cardiovascular exam: Present: regular rate, systolic murmur, +S4 - Abdominal Exam Abdominal exam: Present: soft. Absent: guarding - Rectal Exam Rectal exam: Present: heme (+) stool - Extremities Exam Extremities exam: Absent: calf tenderness - Neurological Exam Neurological exam: Present: alert, oriented X3, CN II-XII intact. Absent: motor sensory deficit - Psychiatric Psychiatric exam: Present: normal affect - Skin Skin exam: Absent: rash
[2017-11-19 06:04] LABS: Basophils % 0.2 % (0.1-2.0); Eosinophils # 0.2 K/mm3 (0.0-0.4); Eosinophils % 1.4 % (0.1-12.0); Hematocrit 29.7 % (42.0-52.0); Lymphocytes # 0.8 K/mm3 (0.7-4.5); Lymphocytes % 7.3 K/mm3 (10-50); Mean Corpuscular HGB Conc 32.3 g/dL (31.8-35.4); Mean Corpuscular Hemoglobin 29.8 pg (27.0-31.2); Mean Corpuscular Volume 92.5 fl (80-94); Mean Platelet Volume 7.5 fl (7.4-10.4); Monocytes # 0.7 K/mm3 (0.1-1.0); Monocytes % 5.6 % (1.7-9.3); Neutrophils # 9.8 K/mm3 (1.8-7.8); Neutrophils % 85.5 % (37.0-80.0); Platelet Count 197 K/mm3 (142-424); Red Blood Count 3.21 M/mm3 (4.60-6.20); Red Cell Distribution Width 18.3 % (11.5-17.5); White Blood Count 11.5 K/mm3 (4.8-10.8)
[2017-11-19 06:15] LABS: Anion Gap 7.5 mEq/L (5-15); Calcium 7.8 mg/dL (8.5-10.1); Potassium 4.5 mmoL/L (3.5-5.1)
[2017-11-19 06:16] LABS: Hemoglobin 9.7 g/dL (14.1-18.0)
--- NOTE | 2017-11-19 07:12 | History & Physical Report ---
*Admission Date: 11/19/17 *Chief complaint: Blood in stool *History of present illness: 67-year-old male with cirrhosis of the liver secondary to hepatitis C presented to the emergency department from [facility] with report of blood in his stools over the last 3 days and an acute change in the patient's level of consciousness on the day of presentation. Patient was apparently found slumped over in a wheelchair. Patient actually confirms the last thing he remembers is being in his wheelchair at the facility and the next thing he recalls is he was in the hospital. He has had some mild abdominal discomfort. His appetite has been poor since his last hospitalization but he felt like it was improving. Patient was hospitalized approximately 2 weeks ago after a hip fracture. He was discharged to the long-term facility on aspirin because of new diagnosis of atrial fibrillation with intention that aspirin would also be his anticoagulant postoperatively. He denies nausea or vomiting, fevers or chills [facility] History 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 Other Surgeries: No: Pacemaker Amputation: No Fractures: Yes (BOTH LEGS; RT RADIAL, LT ULNA, NOSE, JAW, TED:BLE 2INCHES SHORTER AFTER F) - *Social History Smoking Status: Former smoker Tobacco Type: cigarettes #Yrs smoked (if former smoker): 50 Smoking End Date: 3 WEEKS AGO Alcohol Intake: never Occupational Status: retired Housing: half-way - Psychiatric History Expresses thoughts of harming self/others: None Suicide Plan Description: No Plan *Family Hx:: Unable to obtain Review of Systems - Review of Systems Review of systems:: pertinent systems reviewed and negative unless documented below - Constitutional Reports anorexia, Denies body ache(s), Denies chills - *Cardiovascular Denies chest pain - *Respiratory Denies chest congestion, Denies cough - *Gastrointestinal Reports abdominal pain, Reports bloating, Reports change in stools - *Genitourinary Denies difficulty urinating - *Neurologic Denies seizure-like activity Meds Home Medications Medication Instructions Recorded Confirmed Type Cholecalciferol (Vitamin D3) 50,000 unit PO PRAKASH 11/05/17 11/18/17 History [Vitamin D3 50,000 unit Cap] Propranolol HCl 10 mg PO BID 11/05/17 11/18/17 History Acetaminophen 500 mg PO Q6 PRN 11/18/17 11/18/17 History Aspirin [Aspirin 325mg Tab] 325 mg PO DAILY 11/18/17 11/18/17 History Docusate Sodium [Colace 250mg 250 mg PO DAILY PRN 11/18/17 11/18/17 History capsule] Ipratropium/Albuterol Sulfate 3 ml IH TID 11/18/17 11/18/17 History [Duoneb 3mL neb] Nicotine [Nicotine Patch 21 mg TD DAILY 11/18/17 11/18/17 History 21mg/24hrs] Spironolactone 50 mg PO DAILY 11/18/17 11/18/17 History guaiFENesin [Mucinex 600mg tablet] 600 mg PO BID 11/18/17 11/18/17 History Allergies Allergy/AdvReac Type Severity Reaction Status Date / Time No Known Allergies Allergy Verified 11/05/17 17:03 Exam Vital signs and Labs for Last 24 Hours: Temp Pulse Resp BP Pulse Ox 98.0 F 70 14 119/80 100 11/19/17 05:15 11/19/17 05:15 11/19/17 05:15 11/19/17 05:15 11/19/17 05:15 Laboratory Results - last 24 hr 11/18/17 19:55: WBC 12.7 H, RBC 2.39 L, Hgb 7.3 L*, Hct 23.1 L*, MCV 96.5 H, MCH 30.6, MCHC 31.7 L, RDW 20.4 H, Plt Count 226, MPV 7.8, Neut % (Auto) 88.4 H , Lymph % (Auto) 5.7 L, [place] % (Auto) 4.8, Eos % (Auto) 1.1, Baso % (Auto) 0.1, Neut # (Auto) 11.2 H, Lymph # (Auto) 0.7, [place] # (Auto) 0.6, Eos # (Auto) 0.1, Baso # (Auto) 0.0, Total Counted 100, Neutrophils % (Manual) 94 H, Lymphocytes % (Manual) 3 L, Monocytes % (Manual) 3, Platelet Estimate Normal, RBC Morphology Not Reportable, Hypochromasia 2+, Anisocytosis 2+, Microcytosis 2+ 11/18/17 19:55: PT 13.5 H, INR 1.32 H 11/18/17 20:15: Stool Occult Blood Positive A 11/18/17 20:15: Urine Color Yellow, Urine Appearance Clear, Urine pH 6.0, Ur Specific [place] 1.015, Urine Protein Negative, Urine Glucose (UA) Negative, Urine Ketones Negative, Urine Blood Negative, Urine Nitrate Negative, Urine Bilirubin Negative, Urine Urobilinogen 0.2, Ur Leukocyte Esterase Negative, Urine RBC None, Urine WBC None, Ur Squamous Epith Cells Occasional, Urine Bacteria Trace 11/18/17 20:38: Sodium 133 L, Potassium 4.9, Chloride 104, Carbon Dioxide 24, Anion Gap 9.9, BUN 37 H, Creatinine 1.27, Estimated Creat Clear 51, Estimated GFR 57 L, Est GFR ( Amer) 69, Glucose 111 H, Calcium 8.0 L, Total Bilirubin 4.0 H, Direct Bilirubin 2.2 H, Indirect Bilirubin 1.8 H, AST 100 H, ALT 76, Alkaline Phosphatase 339 H, Troponin I < 0.02, Total Protein 7.2, Albumin 1.9 L, Globulin 5.3 H, Albumin/Globulin Ratio 0.4 L, Amylase 33, Lipase 128 11/18/17 20:38: Lactic Acid 1.7 11/18/17 20:38: Ammonia 19 11/18/17 20:38: Blood Type O Negative, Antibody Screen Negative, Crossmatch ([facility] ) See Detail 11/18/17 20:38: Crossmatch ([facility]) See Detail 11/18/17 22:30: Blood Type Confirm O Negative 11/19/17 05:30: WBC 11.5 H, RBC 3.21 L D, Hgb 9.7 L D, Hct 29.7 L, MCV 92.5, MCH 29.8, MCHC 32.3, RDW 18.3 H, Plt Count 197, MPV 7.5, Neut % (Auto) 85.5 H, Lymph % (Auto) 7.3 L, [place] % (Auto) 5.6, Eos % (Auto) 1.4, Baso % (Auto) 0.2, Neut # (Auto) 9.8 H, Lymph # (Auto) 0.8, [place] # (Auto) 0.7, Eos # (Auto) 0.2, Baso # (Auto) 0.0 11/19/17 05:30: Sodium 133 L, Potassium 4.5, Chloride 107, Carbon Dioxide 23, Anion Gap 7.5, BUN 33 H, Creatinine 1.09, Estimated Creat Clear 54, Estimated GFR 68, Est GFR ( Amer) 82, Glucose 87 D, Calcium 7.8 L, Magnesium 1.8 I & O for Last 24 hours: Intake & Output 11/16/17 11/17/17 11/18/17 11/19/17 11:59 11:59 11:59 11:59 Intake Total 2100 / 2100 Output Total 800 / 800 Balance 1300 / 1300 Weight 126 lb 7 oz Narrative: Patient appears older than his stated age and is disheveled. He answers questions appropriately and is oriented to person place and time this morning. Lungs are clear to auscultation. Heart rate is irregular. Abdomen is mildly distended with right lower quadrant and left lower quadrant tenderness to palpation. Bowel sounds are present. Patient has active range of motion in all extremities. Skin is warm to the touch and there are no rashes. H&P: Result - Labs Labs: Short CBC 11/18/17 11/19/17 Range/Units 19:55 05:30 WBC 12.7 H 11.5 H (4.8-10.8) K/mm3 Hgb 7.3 L* 9.7 L D (14.1-18.0) g/dL Hct 23.1 L* 29.7 L (42.0-52.0) % Plt Count 226 197 (142-424) K/mm3 [facility] 11/18/17 11/19/17 20:38 05:30 Sodium 133 L 133 L Potassium 4.9 4.5 Chloride 104 107 Carbon Dioxide 24 23 BUN 37 H 33 H Creatinine 1.27 1.09 Glucose 111 H 87 D Calcium 8.0 L 7.8 L Cardiac Enzymes 11/18/17 Range/Units 20:38 Troponin I < 0.02 (0.00-0.06) ng/ml Liver Function 11/18/17 Range/Units 20:38 Total Bilirubin 4.0 H (0.2-1.0) mg/dL Direct Bilirubin 2.2 H (0.0-0.2) mg/dL AST 100 H (15-37) U/L ALT 76 (12-78) U/L Alkaline Phosphatase 339 H (46-116) U/L Albumin 1.9 L (3.4-5.0) gm/dL Urine 11/18/ Range/Units 20:15 Urine Color Yellow (Yellow) Urine Appearance Clear (Clear) Urine pH 6.0 (5.0-8.5) Ur Specific [place] 1.015 (1.005-1.030) Urine Protein Negative (Negative) Urine Glucose (UA) Negative (Negative) Assessment and Plan (1) Lower gastrointestinal bleed Current visit: Yes Status: Acute Category: Medical Code(s): K92.2 - Gastrointestinal hemorrhage, unspecified (2) Anemia Current visit: Yes Status: Acute Qualifiers: Anemia type: unspecified type Qualified Code(s): D64.9 - Anemia, unspecified Category: Medical Code(s): D64.9 - Anemia, unspecified (3) Closed left hip fracture Current visit: No Status: Acute Qualifiers: Encounter type: initial encounter Qualified Code(s): S72.002A - Fracture of unspecified part of neck of left femur, initial encounter for closed fracture Category: Medical Code(s): S72.002A - Fracture of unspecified part of neck of left femur, initial encounter for closed fracture (4) Protein calorie malnutrition Current visit: No Status: Acute Category: Medical Code(s): E46 - Unspecified protein-calorie malnutrition - Assessment and plan all Dx Assessment and Plan for all problems:: 1. Patient has successfully been transfused 2 units of packed red cells and posttransfusion H&H is improved. Repeat H&H this afternoon 2. Continue patient on his spironolactone to avoid accumulation of ascites. 3. Await official CT scan report 4. Discontinue aspirin permanently. This will put the patient at risk for both DVT and long-term for stroke from atrial fibrillation. Will discuss long- term treatment options of atrial fibrillation with patient
[2017-11-19 07:23] LABS: Albumin Level 1.9 gm/dL (3.4-5.0); Bilirubin,Indirect 3.4 mg/dL (0.0-0.9); Bilirubin,Total 5.4 mg/dL (0.2-1.0)
--- NOTE | 2017-11-19 07:58 | Pharmacy Consult Notes ---
[facility] Pharmacy VTE Monitoring - Patient Demographics Admission date: 11/18/17 Report Date: 11/19/17 Time: 07:58 Allergies/Adverse Reactions: Patient Allergies No Known Allergies Allergy (Verified 11/05/17 17:03) Height: 1.68 m Weight: 57.351 kg Patient Problems: Current Active Problems Hepatic cirrhosis due to chronic hepatitis C infection (Acute) Lower gastrointestinal bleed (Acute) Anemia (Acute) Renal insufficiency (Acute) - VTE Risk Labs: VTE Related Lab Results Hgb 9.7 g/dL (14.1-18.0) L D 11/19/17 05:30 Hct 29.7 % (42.0-52.0) L 11/19/17 05:30 Plt Count 197 K/mm3 (142-424) 11/19/17 05:30 PT 13.5 seconds (9.4-11.8) H 11/18/17 19:55 INR 1.32 (0.9-1.1) H 11/18/17 19:55 BUN 33 mg/dL (7-18) H 11/19/17 05:30 Creatinine 1.09 mg/dL (0.70-1.30) 11/19/17 05:30 Estimated Creat Clear 54 mL/min (0-300) 11/19/17 05:30 Was VTE Risk Assessment Performed: Yes VTE Score: 2 VTE Risk Level: Very Low Risk Clinical Trial Participant: No - Prophylaxis VTE Prophylaxis Ordered?: Yes Types of VTE Prophylaxis: TEDS Knee High
[2017-11-19 10:21] LABS: Eosinophils % 1 % (0-3); Lymphocytes % 4 % (10-50); Monocytes % 3 % (2-9); Neutrophils % 92 % (42-76); Total Cells Counted 100
[2017-11-19 10:24] LABS: Tear Drop Cells 1+
[2017-11-19 16:10] LABS: Hematocrit 28.4 % (42.0-52.0); Hemoglobin 9.2 g/dL (14.1-18.0)
[2017-11-20 00:30] LABS: Hematocrit 30.7 % (42.0-52.0); Hemoglobin 9.9 g/dL (14.1-18.0)
[2017-11-20 06:41] LABS: Basophils % 0.2 % (0.1-2.0); Eosinophils # 0.3 K/mm3 (0.0-0.4); Eosinophils % 3.8 % (0.1-12.0); Hematocrit 28.9 % (42.0-52.0); Hemoglobin 9.4 g/dL (14.1-18.0); Lymphocytes # 0.9 K/mm3 (0.7-4.5); Lymphocytes % 9.8 K/mm3 (10-50); Mean Corpuscular HGB Conc 32.4 g/dL (31.8-35.4); Mean Corpuscular Hemoglobin 29.8 pg (27.0-31.2); Mean Corpuscular Volume 92.1 fl (80-94); Mean Platelet Volume 7.5 fl (7.4-10.4); Monocytes # 0.7 K/mm3 (0.1-1.0); Monocytes % 8.4 % (1.7-9.3); Neutrophils # 6.8 K/mm3 (1.8-7.8); Neutrophils % 77.8 % (37.0-80.0); Platelet Count 182 K/mm3 (142-424); Red Blood Count 3.14 M/mm3 (4.60-6.20); Red Cell Distribution Width 16.6 % (11.5-17.5); White Blood Count 8.7 K/mm3 (4.8-10.8)
[2017-11-20 06:57] LABS: Albumin Level 1.7 gm/dL (3.4-5.0); Bilirubin,Direct 2.1 mg/dL (0.0-0.2); Bilirubin,Indirect 1.8 mg/dL (0.0-0.9); Bilirubin,Total 3.9 mg/dL (0.2-1.0); Total Protein,Serum 6.4 gm/dL (6.4-8.2)
--- NOTE | 2017-11-20 07:25 | Progress Note ---
Internal Medicine - PN: Subj *Date: 11/20/17 *Time: 07:21 Interval history: Patient reports feeling better. He has less abdominal pain. He had what was reported as a "dark stool" yesterday but states he thought it was normal color for him. He has not had any bright red blood. H&H has remained stable over the last 24 hours. Exam Vital signs and Labs for Last 24 Hours: Temp Pulse Resp BP Pulse Ox 98.4 F 57 L 14 93/45 97 11/20/17 04:34 11/20/17 04:34 11/20/17 04:34 11/20/17 04:34 11/20/17 04:34 Laboratory Results - last 24 hr 11/19/17 05:30: Total Counted 100, Neutrophils % (Manual) 92 H, Lymphocytes % ( Manual) 4 L, Monocytes % (Manual) 3, Eosinophils % (Manual) 1, Platelet Estimate Normal, RBC Morphology Not Reportable, Poikilocytosis 2+, Tear Drop Cells 1+, Mark Cells 1+ 11/19/17 05:30: Total Bilirubin 5.4 H, Direct Bilirubin 2.0 H, Indirect Bilirubin 3.4 H, AST 88 H, ALT 70, Alkaline Phosphatase 311 H, Total Protein 7.0 , Albumin 1.9 L 11/19/17 16:00: Hgb 9.2 L, Hct 28.4 L 11/20/17 00:20: Hgb 9.9 L, Hct 30.7 L 11/20/17 06:20: WBC 8.7, RBC 3.14 L, Hgb 9.4 L, Hct 28.9 L, MCV 92.1, MCH 29.8, MCHC 32.4, RDW 16.6, Plt Count 182, MPV 7.5, Neut % (Auto) 77.8, Lymph % (Auto) 9.8 L, [place] % (Auto) 8.4, Eos % (Auto) 3.8, Baso % (Auto) 0.2, Neut # (Auto) 6.8 , Lymph # (Auto) 0.9, [place] # (Auto) 0.7, Eos # (Auto) 0.3, Baso # (Auto) 0.0 11/20/17 06:20: Total Bilirubin 3.9 H, Direct Bilirubin 2.1 H, Indirect Bilirubin 1.8 H, AST 60 H D, ALT 54, Alkaline Phosphatase 266 H, Total Protein 6.4, Albumin 1.7 L D I & O for Last 24 hours: Intake & Output 11/17/17 11/18/17 11/19/17 11/20/17 11:59 11:59 11:59 11:59 Intake Total 2100 / 2100 540 / 540 Output Total 800 / 800 700 / 700 Balance 1300 / 1300 -160 / -160 Weight 126 lb 7 oz 128 lb 6 oz Narrative: Patient is more alert and conversant. He is oriented to person place and time. Lungs are overall clear with diminished breath sounds at the right base greater than left due to small pleural effusion. Abdomen is soft and distended with ascites. Assessment and Plan (1) Lower gastrointestinal bleed Current visit: Yes Status: Acute Category: Medical Code(s): K92.2 - Gastrointestinal hemorrhage, unspecified (2) Anemia Current visit: Yes Status: Acute Qualifiers: Anemia type: unspecified type Qualified Code(s): D64.9 - Anemia, unspecified Category: Medical Code(s): D64.9 - Anemia, unspecified (3) Closed left hip fracture Current visit: No Status: Acute Qualifiers: Encounter type: initial encounter Qualified Code(s): S72.002A - Fracture of unspecified part of neck of left femur, initial encounter for closed fracture Category: Medical Code(s): S72.002A - Fracture of unspecified part of neck of left femur, initial encounter for closed fracture (4) Protein calorie malnutrition Current visit: No Status: Acute Category: Medical Code(s): E46 - Unspecified protein-calorie malnutrition - Assessment and plan all Dx Assessment and Plan for all problems:: 1. Advance diet 2. Care management consult 3. LFTs are improving and CBC is stable. Patient's last colonoscopy, or attempt that, was 2008 and was unsuccessful in. Patient had subsequent barium enema which revealed diverticulosis of the sigmoid colon. I suspect patient's proctitis that was seen on CT scan was due to a combination of constipation for which he was treated at the [facility] and after having several bowel movements the rectum became irritated. He is not passing any more blood and H& H is stable we will begin to advance diet. If he tolerates full liquids today we will anticipate discharge back to the group home facility tomorrow
[2017-11-21 06:36] LABS: Eosinophils # 0.3 K/mm3 (0.0-0.4); Monocytes # 0.5 K/mm3 (0.1-1.0)
[2017-11-21 06:44] LABS: Basophils % 0.3 % (0.1-2.0); Hematocrit 33.1 % (42.0-52.0); Lymphocytes # 0.9 K/mm3 (0.7-4.5); Lymphocytes % 11.4 K/mm3 (10-50); Mean Corpuscular HGB Conc 32.5 g/dL (31.8-35.4); Mean Corpuscular Hemoglobin 31.3 pg (27.0-31.2); Mean Corpuscular Volume 96.3 fl (80-94); Mean Platelet Volume 7.6 fl (7.4-10.4); Monocytes % 6.6 % (1.7-9.3); Neutrophils # 6.4 K/mm3 (1.8-7.8); Neutrophils % 77.7 % (37.0-80.0); Platelet Count 214 K/mm3 (142-424); Red Blood Count 3.43 M/mm3 (4.60-6.20); White Blood Count 8.2 K/mm3 (4.8-10.8)
[2017-11-21 06:45] LABS: Albumin Level 1.9 gm/dL (3.4-5.0); Bilirubin,Total 3.2 mg/dL (0.2-1.0); Total Protein,Serum 7.6 gm/dL (6.4-8.2)
[2017-11-21 06:49] LABS: Hemoglobin 10.7 g/dL (14.1-18.0)
[2017-11-21 07:03] LABS: Bilirubin,Direct 1.7 mg/dL (0.0-0.2); Bilirubin,Indirect 1.5 mg/dL (0.0-0.9)
--- NOTE | 2017-11-21 07:16 | Discharge Summary ---
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 Patient was apparently found slumped over in a wheelchair. Patient actually confirms the last thing he remembers is being in his wheelchair at the facility and the next thing he recalls is he was in the hospital. He has had some mild abdominal discomfort. His appetite has been poor since his last hospitalization but he felt like it was improving. Patient was hospitalized approximately 2 weeks ago after a hip fracture. He was discharged to the intermediate facility on aspirin because of new diagnosis of atrial fibrillation with intention that aspirin would also be his anticoagulant postoperatively. He denies nausea or vomiting, fevers or chills Hospital Course Hospital Course: Patient was admitted for lower GI bleed. He was transfused 2 units of packed red blood cells on admission. For the 24 hours following admission serial H&H' s were performed every 6 hours. Aspirin was discontinued. Once patient was more alert he reported constipation a few days prior to admission. His constipation was followed by multiple bowel movements the day prior to admission which apparently had bright red blood. Patient had an attempted flexible sigmoidoscopy in 2008 but due to narrowing of the colon that test could not be performed. Barium enema performed at that time it showed diverticulosis with otherwise normal colon. Patient CT scan on admission showed colonic edema with differential being colitis versus hypoproteinemia and findings of proctitis. I believe the patient's constipation was treated at the facility which led to frequent bowel movements triggering the proctitis and likely irritating diverticulosis causing a diverticular bleed. As patient's H& H stabilized and patient's previous flexible sigmoidoscopy was incomplete due to colonic narrowing I opted not to pursue repeat colonoscopy or flexible sigmoidoscopy. H&H stabilized and hemoglobin on day of discharge was 10.7. Patient has underlying cirrhosis of the liver. On presentation he had a protuberant abdomen with ascites. Review of record shows a 25 pound weight gain since his hospitalization earlier in the month and this is due to ascites. Patient received fluids during the length of his previous hospitalization and received fluids for the first 36 hours of hospitalization this time. Fluids were discontinued once H&H had stabilized. Patient was restarted on spironolactone and it was increased to his home dose of 100 mg daily. Due to borderline hypotension patient was not given any furosemide. Propranolol was also held but propranolol will be restarted at discharge. Patient will need a high protein, low sodium diet due to his cirrhosis. Patient had recently sustained a left hip fracture and underwent pinning here at [facility]. Postoperatively he was on aspirin as DVT prophylaxis but due to bleeding that will be discontinued. It has been explained to the patient that this will put him at increased risk for a blood clot which he understands. Care management was consulted for SNF placement and patient was accepted at [facility]. Mental Status: Average Rehab Potential : Good Prognosis : Fair Objective Vital signs: Temp Pulse Resp BP Pulse Ox 97.7 F 76 18 99/57 98 11/21/17 04:00 11/21/17 04:00 11/21/17 04:00 11/21/17 04:00 11/21/17 04:00 Results Labs on day of discharge: Abnormal Labs 11/18/17 11/18/17 11/18/17 19:55 19:55 20:15 WBC 12.7 H RBC 2.39 L Hgb 7.3 L* Hct 23.1 L* MCV 96.5 H MCH MCHC 31.7 L RDW 20.4 H Neut % (Auto) 88.4 H Lymph % (Auto) 5.7 L Neut # (Auto) 11.2 H Neutrophils % (Manual) 94 H Lymphocytes % (Manual) 3 L PT 13.5 H INR 1.32 H Sodium BUN Estimated GFR Glucose Calcium Total Bilirubin Direct Bilirubin Indirect Bilirubin AST Alkaline Phosphatase Albumin Globulin Albumin/Globulin Ratio Stool Occult Blood Positive A Crossmatch ([facility]) 11/18/17 11/18/17 11/18/17 20:38 20:38 20:38 WBC RBC Hgb Hct MCV MCH MCHC RDW Neut % (Auto) Lymph % (Auto) Neut # (Auto) Neutrophils % (Manual) Lymphocytes % (Manual) PT INR Sodium 133 L BUN 37 H Estimated GFR 57 L Glucose 111 H Calcium 8.0 L Total Bilirubin 4.0 H Direct Bilirubin 2.2 H Indirect Bilirubin 1.8 H AST 100 H Alkaline Phosphatase 339 H Albumin 1.9 L Globulin 5.3 H Albumin/Globulin Ratio 0.4 L Stool Occult Blood Crossmatch ([facility]) See Detail See Detail 11/19/17 11/19/17 11/19/17 05:30 05:30 05:30 WBC 11.5 H RBC 3.21 L D Hgb 9.7 L D Hct 29.7 L MCV MCH MCHC RDW 18.3 H Neut % (Auto) 85.5 H Lymph % (Auto) 7.3 L Neut # (Auto) 9.8 H Neutrophils % (Manual) 92 H Lymphocytes % (Manual) 4 L PT INR Sodium 133 L BUN 33 H Estimated GFR Glucose Calcium 7.8 L Total Bilirubin 5.4 H Direct Bilirubin 2.0 H Indirect Bilirubin 3.4 H AST 88 H Alkaline Phosphatase 311 H Albumin 1.9 L Globulin Albumin/Globulin Ratio Stool Occult Blood Crossmatch ([facility]) 11/19/17 11/20/17 11/20/17 16:00 00:20 06:20 WBC RBC 3.14 L Hgb 9.2 L 9.9 L 9.4 L Hct 28.4 L 30.7 L 28.9 L MCV MCH MCHC RDW Neut % (Auto) Lymph % (Auto) 9.8 L Neut # (Auto) Neutrophils % (Manual) Lymphocytes % (Manual) PT INR Sodium BUN Estimated GFR Glucose Calcium Total Bilirubin Direct Bilirubin Indirect Bilirubin AST Alkaline Phosphatase Albumin Globulin Albumin/Globulin Ratio Stool Occult Blood Crossmatch ([facility]) 11/20/17 11/21/17 11/21/17 06:20 06:17 06:17 WBC RBC 3.43 L Hgb 10.7 L D Hct 33.1 L MCV 96.3 H MCH 31.3 H MCHC RDW 20.0 H Neut % (Auto) Lymph % (Auto) Neut # (Auto) Neutrophils % (Manual) Lymphocytes % (Manual) PT INR Sodium BUN Estimated GFR Glucose Calcium Total Bilirubin 3.9 H 3.2 H Direct Bilirubin 2.1 H 1.7 H Indirect Bilirubin 1.8 H 1.5 H AST 60 H D 66 H Alkaline Phosphatase 266 H 315 H Albumin 1.7 L D 1.9 L D Globulin Albumin/Globulin Ratio Stool Occult Blood Crossmatch ([facility]) Labs from last 24 hours 11/21/17 11/21/17 06:17 06:17 WBC 8.2 RBC 3.43 L Hgb 10.7 L D Hct 33.1 L MCV 96.3 H MCH 31.3 H MCHC 32.5 RDW 20.0 H Plt Count 214 MPV 7.6 Neut % (Auto) 77.7 Lymph % (Auto) 11.4 [place] % (Auto) 6.6 Eos % (Auto) 4.0 Baso % (Auto) 0.3 Neut # (Auto) 6.4 Lymph # (Auto) 0.9 [place] # (Auto) 0.5 Eos # (Auto) 0.3 Baso # (Auto) 0.0 Total Bilirubin 3.2 H Direct Bilirubin 1.7 H Indirect Bilirubin 1.5 H AST 66 H ALT 61 Alkaline Phosphatase 315 H Total Protein 7.6 Albumin 1.9 L D Preliminary micro results at discharge 11/18/17 19:55 Blood Culture - Preliminary Blood NO GROWTH AFTER 48 HOURS 11/18/17 19:55 Blood Culture - Preliminary Blood NO GROWTH AFTER 48 HOURS DS: Diagnosis - Discharge Diagnosis (1) Lower gastrointestinal bleed Status: Acute Problem details: Suspected diverticular bleed (2) Anemia Status: Acute (3) Closed left hip fracture Status: Acute (4) Protein calorie malnutrition Status: Acute (5) Hepatic cirrhosis due to chronic hepatitis C infection Status: Acute (6) Atrial fibrillation Status: Acute Discharge Plan - Patient Discharge Instructions ACTIVITY: Continue current activity DIET: advance to your usual diet Patient Instructions: Anemia, DI for Gastrointestinal Bleeding - Follow up Plan Disposition: [facility] Home Medications: Home Medications Medication Instructions Recorded Confirmed Type Cholecalciferol (Vitamin D3) 50,000 unit PO PRAKASH 11/05/17 11/18/17 History [Vitamin D3 50,000 unit Cap] Propranolol HCl 10 mg PO BID 11/05/17 11/18/17 History Docusate Sodium [Colace 250mg 250 mg PO DAILY PRN 11/18/17 11/18/17 History capsule] Ipratropium/Albuterol Sulfate 3 ml IH TID 11/18/17 11/18/17 History [Duoneb 3mL neb] Nicotine [Nicotine Patch 21 mg TD DAILY 11/18/17 11/18/17 History 21mg/24hrs] guaiFENesin [Mucinex 600mg tablet] 600 mg PO BID 11/18/17 11/18/17 History Prescriptions/Medication Reconciliation: New Spironolactone [Aldactone 25mg Tab] 100 mg PO DAILY tablet Continue Cholecalciferol (Vitamin D3) [Vitamin D3 50,000 unit Cap] 50,000 unit PO PRAKASH Propranolol HCl 10 mg PO BID guaiFENesin [Mucinex 600mg tablet] 600 mg PO BID Docusate Sodium [Colace 250mg capsule] 250 mg PO DAILY PRN PRN Reason: Constipation Oxycodone HCl [OxyIR 5mg tablet] 5 mg PO Q4HP PRN #120 tab PRN Reason: Severe Pain Nicotine [Nicotine Patch 21mg/24hrs] 21 mg TD DAILY Ipratropium/Albuterol Sulfate [Duoneb 3mL neb] 3 ml IH TID Discontinued Acetaminophen 1,000 mg PO Q6 PRN PRN Reason: pain or fever Spironolactone 50 mg PO DAILY Aspirin [Aspirin 325mg Tab] 325 mg PO DAILY
== END 2017-11-21 12:17 ==
LOC: ER 19:13 → 2ND 19:13
PROVIDERS: ADMIT Internal Medicine Adolescent Medicine; ATTEND Family Medicine

== ENCOUNTER 2018-02-24 17:00 | Outpatient (RCR) | payer MEDICARE, SELFPAY | END 2018-02-24 17:01 | disposition home or self-care (01) | LOC: PT 17:00 | PROVIDERS: Family Provider Family Medicine; PCP Nurse Practitioner Family; Visit Provider Family Medicine | DX: M25.552 Pain in left hip (principal) | CPT/HCPCS: 97110; 97116; 97163 ==

== ENCOUNTER → 2018-05-04 10:20 | Outpatient (CLI) | payer MEDICARE, SELFPAY ==
--- NOTE | 2018-05-04 10:22 | US_ITS ---
US abdomen complete HISTORY: ITS.REASON: CIRRHOSIS ORDERING PHYSICIAN: Referral Provider, PATIENT AGE: 67 years COMPARISON: None FINDINGS: There is generalized ascites. The pancreas is poorly demonstrated due to overlying bowel. The liver shows coarse echogenicity with irregular margins consistent with cirrhosis. There is thickening of the gallbladder wall. Common bile duct is normal at 3 mm. No gallstones or pericholecystic fluid. There is appropriate direction of blood flow within the portal vein. Portal vein is normal in size at 8 mm. Unremarkable appearing right kidney No evidence of aortic aneurysm. The spleen has an unremarkable appearance at 10 cm. Unremarkable left kidney IMPRESSION: 1. Cirrhosis with ascites 2. Thickened gallbladder wall measuring up to 6 mm. No gallstones or pericholecystic fluid
== END ==
PROVIDERS: PCP Family Medicine; Visit Provider Nurse Practitioner Acute Care
DX: K74.60 Unspecified cirrhosis of liver (principal); R18.8 Other ascites
CPT/HCPCS: 76700

== ENCOUNTER → 2018-11-24 13:48 | Outpatient (CLI) | payer MEDICARE, SELFPAY ==
--- NOTE | 2018-11-24 13:53 | XR_ITS ---
XR chest 2V HISTORY: ITS.REASON: SOB, CHEST PAIN AT REST ORDERING PHYSICIAN: Gerald Bailon MD PATIENT AGE: 68 years COMPARISON: 11/18/2017 FINDINGS: Unremarkable cardiovascular structures. COPD with hyperinflation with flattening of the diaphragms. No lobar consolidation or collapse. There is increased density over both lower hemithoraces consistent with overlying breast attenuation. There is wedging of T8, T7, and T6 which is age indeterminant. There are no previous lateral radiographs available for comparison. IMPRESSION: COPD. No acute cardiac or pulmonary findings. Thoracic kyphosis with wedging of T6, T7, and T8 greatest at the T6 area with loss of height of approximately 50% anteriorly age indeterminate
== END ==
PROVIDERS: PCP Family Medicine; Visit Provider Family Medicine
DX: R07.9 Chest pain, unspecified (principal); R06.02 Shortness of breath
CPT/HCPCS: 71046

== ENCOUNTER 2019-07-22 13:06 | Observation (INO) ==
--- NOTE | 2019-07-22 13:12 | Emergency Department Note ---
ED Disposition Clinical Impression: Dehydration, Weakness Altered mental status Qualifiers: Altered mental status type: unspecified Qualified Code(s): R41.82 - Altered mental status, unspecified Disposition: Admitted as Observation Condition on Discharge: Fair Referrals: Provider,Referral, [Primary Care Provider] - - Critical Care Critical Care Time: No Attestation: On 07/22/19, the high probability of a clinically significant, sudden or life threatening deterioration of the following system(s) required my full and direct attention, intervention and personal management. The time I documented below is in addition to time spent performing reported procedures but includes the following listed in this critical care notation. Medical Decision Making - Fredi Inquiry Pt receiving controlled substance: No Vital Signs: 07/22/19 13:03 07/22/19 13:41 07/22/19 15:28 Temperature 97.4 F L Temperature Source Rectal Pulse Rate [Right] 62 75 80 Respiratory Rate 18 20 20 Blood Pressure [Right Arm] 145/83 H 166/100 H 169/87 H Blood Pressure Mean [Right Arm] 103 122 114 02 Sat by Pulse Oximetry 96 99 98 - Lab Data Lab Results 07/22/19 13:00: Urine Color Yellow, Urine Appearance Clear, Urine pH 6.0, Ur Specific [place] 1.020, Urine Protein 1+, Urine Glucose (UA) Trace, Urine Ketones Negative, Urine Blood Trace-i, Urine Nitrate Negative, Urine Bilirubin Negative, Urine Urobilinogen 2.0, Ur Leukocyte Esterase Negative, Urine RBC 3-5, Urine WBC Occasional, Ur Squamous Epith Cells 10-20, Ur Renal Epithelial Cell Occasional, Urine Bacteria None 07/22/19 13:00: WBC 12.3 H, RBC 3.74 L, Hgb 11.0 L, Hct 34.0 L, MCV 90.8, MCH 29.5, MCHC 32.5, RDW 21.2 H, Plt Count 153, MPV 8.4, Neut % (Auto) 87.4 H, Lymph % (Auto) 6.1 L, [place] % (Auto) 5.7, Eos % (Auto) 0.6, Baso % (Auto) 0.1, Neut # (Auto) 10.8 H, Lymph # (Auto) 0.8, [place] # (Auto) 0.7, Eos # (Auto) 0.1, Baso # (Auto) 0.0, Total Counted 100, Neutrophils % (Manual) 86 H, Lymphocytes % (Manual) 8 L, Monocytes % (Manual) 4, Metamyelocytes % 2.0 H, Platelet Estimate Normal, RBC Morphology Normal 07/22/19 13:00: Sodium 137, Potassium 4.3, Chloride 104, Carbon Dioxide 29, Anion Gap 8.3, BUN 32 H, Creatinine 1.10, Estimated Creat Clear 41, Estimated GFR 67, Est GFR ( Amer) 81, Glucose 111 H, Calcium 9.3, Total Bilirubin 2.1 H, AST 45, ALT 29, Alkaline Phosphatase 171 H, Total Protein 9.3 H, Albumin 3.3 L, Globulin 6.0 H, Albumin/Globulin Ratio 0.6 L, Amylase 48, Lipase 92, Salicylates < 1.0 L, Acetaminophen < 10 L 07/22/19 13:00: Lactate 3.4 H 07/22/19 13:00: Ammonia 26 07/22/19 13:00: Influenza Type A Ag Negative, Influenza Type B Ag Negative 07/22/19 13:00: Group A Strep Rapid Negative 07/22/19 13:00: PT 13.7 H, INR 1.34 H, APTT 32.4 07/22/19 13:00: Plasma/Serum Alcohol < 10 07/22/19 13:00: Urine Opiates Screen Negative, Urine Methadone Screen Negative, Ur Barbituates Screen Negative, Ur Phencyclidine Scrn Negative, Ur Amphetamines Screen Negative, U Benzodiazepines Scrn Negative, Urine Cocaine Screen Negative, U Marijuana (THC) Screen Positive H 07/22/19 13:00: Total Creatine Kinase 59, CK-MB (CK-2) 1.9, CK-MB (CK-2) Rel Index 3.2, Troponin I < 0.01 Result diagrams: 07/22/19 13:00 07/22/19 13:00 Orders (Tests/Meds): ED MEDICATIONS Discontinued Medications Generic Name Dose Route Start Last Admin Trade Name Fregrant PRN Reason Stop Dose Admin Ioversol 75 ml 07/22/19 14:41 07/22/19 14:42 Rad-Optiray 350 100ml Vial IV 07/22/19 14:42 75 ml ONCE ONE Administration Protocol Sodium Chloride 1,000 ml 07/22/19 14:37 07/22/19 15:26 Sod Chlor 0.9% 1000ml Bag IV 07/22/19 14:38 1,000 ml BOLUS ONE Administration Sodium Chloride 10 ml 07/22/19 14:41 07/22/19 14:42 Rad-Saline Flush 10ml Syringe IV 07/22/19 14:42 10 ml ONCE ONE Administration ORDERS Category Date Time Status Blood Culture Stat Micro 07/22/19 13:00 Received Strep Screen Confirmation Stat Micro 07/22/19 13:00 Received - Radiology Data #1 Image(s): Chest Image Reviewed: Yes I reviewed the patient's radiology image rotated. No acute disease. - CT Data CT Scan: Head, Abdomen, Pelvis Time Received: 15:[address] Reviewed: Yes: I have viewed the radiologist's interpretation Findings Narrative: PROCEDURE: CT HEAD/BRAIN WO CON CLINICAL INDICATION: AMS Altered mental status, altered level of consciousness, confusion, disorientation COMPARISON: CT HEAD/BRAIN WO CON from 04/21/2019 TECHNIQUE: Axial images obtained. All CT scans at the facility use one or more dose reduction, viz: automated exposure control, ma/kV adjustment per patient size (including targeted exams where dose is matched to indication, i.e. head), or iterative reconstruction technique. FINDINGS: No midline shift, mass effect, intracranial hemorrhage, hydrocephalus, or extra-axial fluid collection is evident. There is generalized atrophy with hypoattenuation of the periventricular white matter consistent with microangiopathic changes. The calvarium has an unremarkable appearance. No mastoid effusion. No sinus air-fluid level. IMPRESSION: No acute intracranial finding Dictated by: Prasanth Alvarado MD 07/22/2019 15:03 Electronically signed by Prasanth Alvarado MD in [place] 07/22/2019 15:03 PROCEDURE: CT ABDOMEN PELVIS W CON CLINICAL INDICATION: abdo pain Abdominal pain the COMPARISON: ABDPELWO CT abdomen pelvis wo con from 11/18/2017 TECHNIQUE: IV Contrast: 75ML OPTIRAY 350 Oral Contrast 20ml Gastroview Axial images obtained with sagittal and coronal reformats. All CT scans at the facility use one or more dose reduction, viz: automated exposure control, ma/kV adjustment per patient size (including targeted exams where dose is matched to indication, i.e. head), or iterative reconstruction technique. FINDINGS: LOWER THORAX: There is increased bronchovascular markings in the left lower lobe medially ABDOMEN & PELVIS: The liver is small with irregular margins consistent with cirrhosis. Scattered peritoneal varices are noted. There is a hypodensity in the patent dome nonspecific measuring 6 mm. Gallbladder is contracted. There is mild diffuse ascites. There is mild diffuse thickening of the large and small bowel. A Sparks catheter is present within a contracted urinary bladder with thickening of the wall. The appendix is not clearly delineated. No evidence of diverticulitis or intestinal obstruction. There is a moderate amount of retained colonic feces in the rectosigmoid region There is mild wedging of T11 which has developed since 11/18/2017 with loss of height anteriorly of 30 percent. Prior ORIF of left hip. Postsurgical changes right hip with a track from an old intramedullary cheyanne present. IMPRESSION: 1. Cirrhosis with ascites. 2. There is mild diffuse thickening of the small and large bowel with some enhancement of the bowel wall. This may be seen with cirrhosis and portal hypertension/portal colopathy/enteropathy. Inflammatory or infectious enterocolitis is also considered. 3. There is mild thickening of the urinary bladder wall suggesting cystitis. Dictated by: Prasanth Alvarado MD 07/22/2019 15:23 Electronically signed by Prasanth Alvarado MD in [place] 07/22/2019 15:23 - ECG Data Tracing #1 EKG interpreted by Esteban Fox MD: Significant baseline artifact present, limiting interpretation rhythm: Probable atrial fibrillation Rate: 122 [place]: normal Ectopy: Premature ventricular contractions versus aberrant conduction Conduction: Normal ST Segment Changes: Nonspecific T Wave Changes: Nonspecific Q Waves: none No evidence of acute ischemia or injury - Physician Consults Physician Consulted: Jeannie Zamora Time: 15:57 Reason -: Admission Comment/Response: Agrees to admit the patient to the hospital. We discussed the patient's clinical information, including history, exam, laboratory and radiology results and ED course. Per hospital procedure, I will write temporary bridge inpatient orders on the patient. Specific orders requested by the admitt ing physician: Admit for hydration, case management consult General Adult HPI - General Chief complaint: Weakness Stated complaint: WEAKNESS Time Seen by Provider: 07/22/19 13:06 - History of Present Illness HPI narrative: Brought in by ambulance from home. Reportedly, 911 was called by caretakers. Caretakers are not present. Secondhand information is that the patient has had a decline in his status over the past couple of days, has not been out of bed. The patient is not able to give any useful history. Very weak, voice is very weak and whispered, very difficult to understand. - Related Data Home Medications Medication Instructions Recorded Confirmed Cholecalciferol (Vitamin D3) 50,000 unit PO PRAKASH 11/05/17 01/06/18 [Vitamin D3 50,000 unit Cap] Propranolol HCl 10 mg PO BID 11/05/17 01/06/18 Nicotine [Nicotine Patch 21 mg TD DAILY 11/18/17 01/06/18 21mg/24hrs] Spironolactone [Aldactone 25mg 100 mg PO DAILY 01/06/18 01/06/18 Tab] Previous Rx's Medication Instructions Recorded Amoxicillin/Potassium Clav 1 tab PO Q12H #20 tab 01/06/18 [Augmentin 875-125 Tablet] Allergies Allergy/AdvReac Type Severity Reaction Status Date / Time No Known Allergies Allergy Verified 04/21/19 10:25 [facility] History - Hepatitis A Screen Attestation statement:: This patient has been screened for Hepatitis A risk factors. 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 Laterality Cases: Left: Total Hip Replacement Other Surgeries: No: Pacemaker Amputation: No Fractures: Yes (BOTH LEGS; RT RADIAL, LT ULNA, NOSE, JAW, TED:BLE 2INCHES SHORTER AFTER F) Comment: Right herniorrhaphy, banding of esophageal varices - Social History Smoking Status: Current every day smoker Tobacco Type: cigarettes # Packs/Day (cigarettes): 1 #Yrs smoked (if former smoker): 50 Alcohol Intake: current Alcohol Intake Frequency:: a few times a month Occupational Status: retired Housing: [facility] Family Hx:: Unable to obtain ROS Obtained: Yes unobtainable due to mental status, Yes unobtainable due to mental condition Physical Exam - General General appearance: alert, in no apparent distress, cachectic Comment: Poor skin turgor with tenting - Head Head exam: atraumatic, normocephalic - Eye Eye exam: Present: normal appearance. Absent: scleral icterus - Neck Neck exam: Present: normal inspection, trachea midline - Chest Chest inspection: Present: normal inspection, symmetric chest wall rise - Respiratory Respiratory exam: Present: other (Few crackles bilaterally) - Cardiovascular Cardiovascular exam: Present: irregular rhythm - Abdominal Exam Abdominal exam: Present: soft, tenderness. Absent: distention, guarding Abdominal tenderness: Present: diffuse - Extremities Exam Extremities exam: Present: normal inspection. Absent: pedal edema - Neurological Exam Neurological exam: Present: alert - Psychiatric Psychiatric exam: Present: flat affect - Skin Skin exam: Present: warm, dry
[2019-07-22 13:22] LABS: Microscopic, Urine URINE MICROSCOPIC (MICROSCOPIC)
[2019-07-22 13:30] LABS: Chloride 104 mmol/L (98-107); Sodium 137 mmol/L (136-145)
[2019-07-22 13:32] LABS: Amylase 48 U/L (30-110)
[2019-07-22 13:33] LABS: Alanine Aminotransferase 29 U/L (12-78); Albumin Level 3.3 g/dl (3.5-5.0); Albumin/Globulin Ratio 0.6 (1.1-1.8); Alkaline Phosphatase 171 U/L (38-126); Anion Gap 8.3 mEq/L (5-15); Aspartate Amino Transferase 45 U/L (17-59); Bilirubin,Total 2.1 mg/dl (0.2-1.3); Blood Urea Nitrogen 32 mg/dl (9-20); Calcium 9.3 mg/dl (8.4-10.2); Carbon Dioxide 29 mmol/L (22.0-30.0); Glucose 111 mg/dl (74-100); Total Protein,Serum 9.3 g/dl (6.3-8.2)
[2019-07-22 13:34] LABS: Amphetamine/Metha Screen,Urine Negative ng/ml (<1000); Barbiturates Screen,Urine Negative ng/ml (<200)
[2019-07-22 13:35] LABS: Activated Partial Thrombo Time 32.4 seconds (23.6-34.0); Benzodiazepines Screen,Urine Negative ng/ml (<200); INR 1.34 (0.9-1.1); Prothrombin Time 13.7 seconds (9.4-11.8)
[2019-07-22 13:36] LABS: Appearance,Urine CLEAR (Clear); Blood, Urine TRACE-I (Negative); Cocaine Screen,Urine Negative ng/ml (<300); Color,Urine YELLOW (Yellow); Glucose,Urine (UA) TRACE (Negative); Ketones,Urine Negative (Negative); Leukocyte Esterase,Urine Negative (Negative); Methadone Screen,Urine Negative ng/ml (<300); Protein,Urine 1+ (Negative)
[2019-07-22 13:37] LABS: Acetaminophen < 10 ug/ml (10-30); Basophils % 0.1 % (0.1-2.0); Bilirubin,Urine Negative (Negative); Cannabinoid Screen,Urine Positive ng/ml (<50); Eosinophils # 0.1 K/mm3 (0.0-0.4); Eosinophils % 0.6 % (0.1-12.0); Lymphocytes # 0.8 K/mm3 (0.7-4.5); Lymphocytes % 6.1 % (10-50); Mean Corpuscular HGB Conc 32.5 g/dL (31.8-35.4); Mean Corpuscular Volume 90.8 fl (80-94); Mean Platelet Volume 8.4 fl (7.4-10.4); Monocytes # 0.7 K/mm3 (0.1-1.0); Monocytes % 5.7 % (1.7-9.3); Neutrophils # 10.8 K/mm3 (1.8-7.8); Neutrophils % 87.4 % (37.0-80.0); Platelet Count 153 K/mm3 (142-424); Red Blood Count 3.74 M/mm3 (4.60-6.20); Red Cell Distribution Width 21.2 % (11.5-17.5); Salicylate < 1.0 mg/dL (2.0-20.0); White Blood Count 12.3 K/mm3 (4.8-10.8)
[2019-07-22 13:38] LABS: Opiate Screen,Urine Negative ng/ml (<300); Phencyclidine Screen,Urine Negative ng/ml (<25)
[2019-07-22 13:40] LABS: Renal Epithelial Cells,Urine Occasional #/lpf (0); WBC,Urine Occasional #/hpf (0-3)
[2019-07-22 13:56] LABS: Lymphocytes % 8 % (10-50); Monocytes % 4 % (2-9); Neutrophils % 86 % (42-76); RBC Morphology Normal; Total Cells Counted 100
[2019-07-22 14:04] LABS: Creatine Kinase 59 U/L (55-170)
--- NOTE | 2019-07-22 16:41 | Pharmacy Consult Notes ---
[facility] Pharmacy VTE Monitoring - Patient Demographics Admission date: 07/22/19 Report Date: 07/22/19 Time: 16:41 Allergies/Adverse Reactions: Patient Allergies No Known Allergies Allergy (Verified 04/21/19 10:25) Height: 1.63 m Weight: 45.359 kg Patient Problems: Current Active Problems Dehydration (Acute) Weakness (Acute) Altered mental status (Acute) - VTE Risk Labs: VTE Related Lab Results Hgb 11.0 g/dL (14.1-18.0) L 07/22/19 13:00 Hct 34.0 % (42.0-52.0) L 07/22/19 13:00 Plt Count 153 K/mm3 (142-424) 07/22/19 13:00 PT 13.7 seconds (9.4-11.8) H 07/22/19 13:00 INR 1.34 (0.9-1.1) H 07/22/19 13:00 APTT 32.4 seconds (23.6-34.0) 07/22/19 13:00 BUN 32 mg/dl (9-20) H 07/22/19 13:00 Creatinine 1.10 mg/dl (0.66-1.25) 07/22/19 13:00 Estimated Creat Clear 41 mL/min (50-200) 07/22/19 13:00 Clinical Trial Participant: No - Prophylaxis VTE Prophylaxis Ordered?: Yes Types of VTE Prophylaxis: TEDS Knee High
--- NOTE | 2019-07-23 08:32 | History & Physical Report ---
*Admission Date: 07/22/19 *Chief complaint: Weakness *History of present illness: 69-year-old male with known cirrhosis from hepatitis C was brought to the hospital via EMS with profound weakness. Patient was found at home by some Associates apparently unable to ambulate and maintain basic hygiene. History is somewhat unclear as there is no one present this morning with the patient and he simply states he was encouraged to seek care. He was brought to the emergency department where he was cleaned up and found to be quite weak and disheveled. Patient's white blood cell count was elevated as was his lactic acid. Labs were otherwise remarkable for urine drug screen positive for marijuana. Patient was felt to be dehydrated and was admitted for IV fluids. This morning he is awake and oriented to person. [facility] History I have reviewed the patient's past medical history: Yes Medical History: Reports:: Atrial Fibrillation Denies:: Cancer, Diabetes Mellitus Type 1, Diabetes Mellitus Type 2, Internal Pacemaker, MRSA *Have you ever received a pneumonia vaccine?: Yes *Have you received a flu vaccine this season?: Yes Other Medical History: Reports: Anemia, Liver Disease Laterality Cases: Left: Total Hip Replacement Other Surgeries: No: Pacemaker Amputation: No Fractures: Yes (BOTH LEGS; RT RADIAL, LT ULNA, NOSE, JAW, TED:BLE 2INCHES SHORTER AFTER F) - *Social History Educational Level: Completed High School Smoking Status: Former smoker Tobacco Type: cigarettes # Packs/Day (cigarettes): 1 #Yrs smoked (if former smoker): 50 Alcohol Intake: never Alcohol Intake Frequency:: a few times a month *Occupational Status:: retired Housing: house *Travel in the last 8 weeks: None Family Hx:: Unable to obtain Review of Systems - Constitutional Reports anorexia, Reports weakness, Denies body ache(s), Denies chills, Denies fever(s) - *Cardiovascular Denies chest pain, Denies chest pain at rest - *Respiratory Denies change in phlegm color, Denies chest congestion, Denies cough - *Gastrointestinal Denies abdominal pain Meds Home Medications Medication Instructions Recorded Confirmed Type Propranolol HCl 10 mg PO DAILY 07/22/19 07/22/19 History Spironolactone 50 mg PO BID 07/22/19 07/22/19 History Allergies Allergy/AdvReac Type Severity Reaction Status Date / Time No Known Allergies Allergy Verified 04/21/19 10:25 Exam Vital signs and Labs for Last 24 Hours: Temp Pulse Resp BP Pulse Ox 98.0 F 72 20 161/85 H 99 07/22/19 20:00 07/22/19 20:00 07/22/19 20:00 07/22/19 20:00 07/23/19 07:33 Laboratory Results - last 24 hr 07/22/19 13:00: Urine Color Yellow, Urine Appearance Clear, Urine pH 6.0, Ur Specific [place] 1.020, Urine Protein 1+, Urine Glucose (UA) Trace, Urine Ketones Negative, Urine Blood Trace-i, Urine Nitrate Negative, Urine Bilirubin Negative, Urine Urobilinogen 2.0, Ur Leukocyte Esterase Negative, Urine RBC 3-5, Urine WBC Occasional, Ur Squamous Epith Cells 10-20, Ur Renal Epithelial Cell Occasional, Urine Bacteria None 07/22/19 13:00: WBC 12.3 H, RBC 3.74 L, Hgb 11.0 L, Hct 34.0 L, MCV 90.8, MCH 29.5, MCHC 32.5, RDW 21.2 H, Plt Count 153, MPV 8.4, Neut % (Auto) 87.4 H, Lymph % (Auto) 6.1 L, [place] % (Auto) 5.7, Eos % (Auto) 0.6, Baso % (Auto) 0.1, Neut # (Auto) 10.8 H, Lymph # (Auto) 0.8, [place] # (Auto) 0.7, Eos # (Auto) 0.1, Baso # (Auto) 0.0, Total Counted 100, Neutrophils % (Manual) 86 H, Lymphocytes % (Manual) 8 L, Monocytes % (Manual) 4, Metamyelocytes % 2.0 H, Platelet Estimate Normal, RBC Morphology Normal 07/22/19 13:00: Sodium 137, Potassium 4.3, Chloride 104, Carbon Dioxide 29, Anion Gap 8.3, BUN 32 H, Creatinine 1.10, Estimated Creat Clear 41, Estimated GFR 67, Est GFR ( Amer) 81, Glucose 111 H, Calcium 9.3, Total Bilirubin 2.1 H, AST 45, ALT 29, Alkaline Phosphatase 171 H, Total Protein 9.3 H, Albumin 3.3 L, Globulin 6.0 H, Albumin/Globulin Ratio 0.6 L, Amylase 48, Lipase 92, Salicylates < 1.0 L, Acetaminophen < 10 L 07/22/19 13:00: Lactate 3.4 H 07/22/19 13:00: Ammonia 26 07/22/19 13:00: Influenza Type A Ag Negative, Influenza Type B Ag Negative 07/22/19 13:00: Group A Strep Rapid Negative 07/22/19 13:00: PT 13.7 H, INR 1.34 H, APTT 32.4 07/22/19 13:00: Plasma/Serum Alcohol < 10 07/22/19 13:00: Urine Opiates Screen Negative, Urine Methadone Screen Negative, Ur Barbituates Screen Negative, Ur Phencyclidine Scrn Negative, Ur Amphetamines Screen Negative, U Benzodiazepines Scrn Negative, Urine Cocaine Screen Negative, U Marijuana (THC) Screen Positive H 07/22/19 13:00: Total Creatine Kinase 59, CK-MB (CK-2) 1.9, CK-MB (CK-2) Rel Index 3.2, Troponin I < 0.01 07/22/19 17:40: Lactate 2.5 H 07/22/19 19:50: Lactate 2.1 I & O for Last 24 hours: Intake & Output 07/20/19 07/21/19 07/22/19 07/23/19 11:59 11:59 11:59 11:59 Intake Total 0 / 0 Output Total 525 / 525 Balance -525 / -525 Weight 87 lb Microbiology Reports for the Last 24 Hours: Microbiology 07/22/19 13:00 Blood Blood Culture - Preliminary 07/22/19 13:00 Blood Blood Culture - Preliminary - Constitutional no acute distress, thin, chronically ill appearing, disheveled - *Routine HEENT Exam Head: Present: normocephalic Eye: Present: PERRL ENT: Present: mucous membranes dry - *Routine Neck Exam Present: full ROM. Absent: JVD, carotid bruit - *Routine Respiratory Exam Present: CTA bilaterally - *Routine Cardiovascular Exam Present: RRR, Normal S1, Normal S2 - *Routine Abdominal Exam Present: soft, normoactive bowel sounds, distended - *Routine Extremities Exam Present: pulses intact. Absent: cyanosis, clubbing, edema, joint swelling Assessment and Plan (1) Bacteremia Current visit: Yes Status: Acute Category: Medical Code(s): R78.81 - Bacteremia (2) Dehydration Current visit: Yes Status: Acute Category: Medical Code(s): E86.0 - Dehydration (3) Hepatic cirrhosis due to chronic hepatitis C infection Current visit: No Status: Acute Category: Medical Code(s): B18.2 - Chronic viral hepatitis C; K74.60 - Unspecified cirrhosis of liver (4) Protein calorie malnutrition Current visit: No Status: Acute Category: Medical Code(s): E46 - Unspecified protein-calorie malnutrition - Assessment and plan all Dx Assessment and Plan for all problems:: 1. Start cefepime and vancomycin due to gram-positive cocci growing in the blood this morning 2. Continue IV fluids 3. Patient's home medicines will be restarted
[2019-07-23 08:40] LABS: Basophils % 0.2 % (0.1-2.0); Eosinophils # 0.2 K/mm3 (0.0-0.4); Eosinophils % 1.8 % (0.1-12.0); Hematocrit 32.6 % (42.0-52.0); Hemoglobin 10.5 g/dL (14.1-18.0); Lymphocytes # 0.7 K/mm3 (0.7-4.5); Lymphocytes % 6.6 % (10-50); Mean Corpuscular HGB Conc 32.1 g/dL (31.8-35.4); Mean Corpuscular Volume 88.7 fl (80-94); Mean Platelet Volume 8.6 fl (7.4-10.4); Monocytes # 0.5 K/mm3 (0.1-1.0); Monocytes % 5.2 % (1.7-9.3); Neutrophils # 8.7 K/mm3 (1.8-7.8); Neutrophils % 86.3 % (37.0-80.0); Platelet Count 107 K/mm3 (142-424); Red Blood Count 3.67 M/mm3 (4.60-6.20); Red Cell Distribution Width 17.7 % (11.5-17.5); White Blood Count 10.1 K/mm3 (4.8-10.8)
--- NOTE | 2019-07-23 08:43 | Pharmacy Consult Notes ---
- Pharmacy Consult Date: 07/23/19 Time: 08:42 Referring provider: DR. GRAYSON Reason for Consult:: VANCOMYCIN DOSING Allergies and ADEs:: Allergies Allergy/AdvReac Type Severity Reaction Status Date / Time No Known Allergies Allergy Verified 04/21/19 10:25 Home Medications:: Home Medications Medication Instructions Recorded Confirmed Type Propranolol HCl 10 mg PO DAILY 07/22/19 07/22/19 History Spironolactone 50 mg PO BID 07/22/19 07/22/19 History Height: 1.6 m Weight: 39.463 kg Laboratory Results:: Laboratory Results - last 24 hr 07/22/19 13:00: Urine Color Yellow, Urine Appearance Clear, Urine pH 6.0, Ur Specific [place] 1.020, Urine Protein 1+, Urine Glucose (UA) Trace, Urine Ketones Negative, Urine Blood Trace-i, Urine Nitrate Negative, Urine Bilirubin Negative, Urine Urobilinogen 2.0, Ur Leukocyte Esterase Negative, Urine RBC 3-5, Urine WBC Occasional, Ur Squamous Epith Cells 10-20, Ur Renal Epithelial Cell Occasional, Urine Bacteria None 07/22/19 13:00: WBC 12.3 H, RBC 3.74 L, Hgb 11.0 L, Hct 34.0 L, MCV 90.8, MCH 29.5, MCHC 32.5, RDW 21.2 H, Plt Count 153, MPV 8.4, Neut % (Auto) 87.4 H, Lymph % (Auto) 6.1 L, [place] % (Auto) 5.7, Eos % (Auto) 0.6, Baso % (Auto) 0.1, Neut # (Auto) 10.8 H, Lymph # (Auto) 0.8, [place] # (Auto) 0.7, Eos # (Auto) 0.1, Baso # (Auto) 0.0, Total Counted 100, Neutrophils % (Manual) 86 H, Lymphocytes % (Manual) 8 L, Monocytes % (Manual) 4, Metamyelocytes % 2.0 H, Platelet Estimate Normal, RBC Morphology Normal 07/22/19 13:00: Sodium 137, Potassium 4.3, Chloride 104, Carbon Dioxide 29, Anion Gap 8.3, BUN 32 H, Creatinine 1.10, Estimated Creat Clear 41, Estimated GFR 67, Est GFR ( Amer) 81, Glucose 111 H, Calcium 9.3, Total Bilirubin 2.1 H, AST 45, ALT 29, Alkaline Phosphatase 171 H, Total Protein 9.3 H, Albumin 3.3 L, Globulin 6.0 H, Albumin/Globulin Ratio 0.6 L, Amylase 48, Lipase 92, Salicylates < 1.0 L, Acetaminophen < 10 L 07/22/19 13:00: Lactate 3.4 H 07/22/19 13:00: Ammonia 26 07/22/19 13:00: Influenza Type A Ag Negative, Influenza Type B Ag Negative 07/22/19 13:00: Group A Strep Rapid Negative 07/22/19 13:00: PT 13.7 H, INR 1.34 H, APTT 32.4 07/22/19 13:00: Plasma/Serum Alcohol < 10 07/22/19 13:00: Urine Opiates Screen Negative, Urine Methadone Screen Negative, Ur Barbituates Screen Negative, Ur Phencyclidine Scrn Negative, Ur Amphetamines Screen Negative, U Benzodiazepines Scrn Negative, Urine Cocaine Screen Negative, U Marijuana (THC) Screen Positive H 07/22/19 13:00: Total Creatine Kinase 59, CK-MB (CK-2) 1.9, CK-MB (CK-2) Rel Index 3.2, Troponin I < 0.01 07/22/19 17:40: Lactate 2.5 H 07/22/19 19:50: Lactate 2.1 Medical History: Reports:: Atrial Fibrillation Denies:: Cancer, Diabetes Mellitus Type 1, Diabetes Mellitus Type 2, Internal Pacemaker, MRSA Assessment and Plan (1) Bacteremia Current visit: Yes Status: Acute Category: Medical Code(s): R78.81 - Bacteremia (2) Dehydration Current visit: Yes Status: Acute Category: Medical Code(s): E86.0 - Dehydration (3) Hepatic cirrhosis due to chronic hepatitis C infection Current visit: No Status: Acute Category: Medical Code(s): B18.2 - Chronic viral hepatitis C; K74.60 - Unspecified cirrhosis of liver (4) Protein calorie malnutrition Current visit: No Status: Acute Category: Medical Code(s): E46 - Unspecified protein-calorie malnutrition - Assessment and plan all Dx Assessment and Plan for all problems:: BASED ON PATIENT FACTORS, RECOMMEND VANCOMYCIN 750 MG IV ONCE, FOLLOWED BY VANCOMYCIN 500 MG IV Q24H. PHARMACY WILL FOLLOW DAILY AND ADJUST APPROPRIATE.
[2019-07-23 08:48] LABS: Anion Gap 11.4 mEq/L (5-15)
[2019-07-23 09:00] LABS: Calcium 8.3 mg/dl (8.4-10.2)
[2019-07-23 09:27] LABS: Eosinophils % 1 % (0-3); Lymphocytes % 9 % (10-50); Monocytes % 3 % (2-9); Neutrophils % 87 % (42-76); RBC Morphology Normal; Total Cells Counted 100
[2019-07-24 06:47] LABS: Basophils % 0.1 % (0.1-2.0); Eosinophils # 0.2 K/mm3 (0.0-0.4); Eosinophils % 3.5 % (0.1-12.0); Hemoglobin 9.7 g/dL (14.1-18.0); Lymphocytes # 0.5 K/mm3 (0.7-4.5); Lymphocytes % 8.2 % (10-50); Mean Corpuscular HGB Conc 32.8 g/dL (31.8-35.4); Mean Corpuscular Volume 87.9 fl (80-94); Mean Platelet Volume 8.3 fl (7.4-10.4); Monocytes # 0.5 K/mm3 (0.1-1.0); Monocytes % 7.5 % (1.7-9.3); Neutrophils # 5.4 K/mm3 (1.8-7.8); Neutrophils % 80.7 % (37.0-80.0); Platelet Count 98 K/mm3 (142-424); Red Blood Count 3.37 M/mm3 (4.60-6.20); Red Cell Distribution Width 19.5 % (11.5-17.5); White Blood Count 6.7 K/mm3 (4.8-10.8)
[2019-07-24 06:48] LABS: Hematocrit 29.7 % (42.0-52.0)
[2019-07-24 06:52] LABS: Anion Gap 10.4 mEq/L (5-15); Calcium 8.5 mg/dl (8.4-10.2)
--- NOTE | 2019-07-24 08:09 | Progress Note ---
Internal Medicine - PN: Subj *Date: 07/24/19 *Time: 08:07 Interval history: Patient reports he is feeling better this morning and requests discharge. Review of nursing notes shows patient has become more oriented however is very forgetful and repeats questions that have been answered throughout the shift. He denies shortness of breath, abdominal pain this morning. Sparks catheter remains intact although patient apparently expressed to nursing staff overnight they continue to urge to urinate Exam Vital signs and Labs for Last 24 Hours: Temp Pulse Resp BP Pulse Ox 98.4 F 77 30 H 140/65 97 07/24/19 07:55 07/24/19 07:55 07/24/19 07:55 07/24/19 07:55 07/24/19 07:55 Laboratory Results - last 24 hr 07/23/19 08:31: WBC 10.1, RBC 3.67 L, Hgb 10.5 L, Hct 32.6 L, MCV 88.7, MCH 28.5, MCHC 32.1, RDW 17.7 H, Plt Count 107 L D, MPV 8.6, Neut % (Auto) 86.3 H, Lymph % (Auto) 6.6 L, [place] % (Auto) 5.2, Eos % (Auto) 1.8, Baso % (Auto) 0.2, Neut # (Auto) 8.7 H, Lymph # (Auto) 0.7, [place] # (Auto) 0.5, Eos # (Auto) 0.2, Baso # (Auto) 0.0, Total Counted 100, Neutrophils % (Manual) 87 H, Lymphocytes % (Manual) 9 L, Monocytes % (Manual) 3, Eosinophils % (Manual) 1, Platelet Estimate Slight decrease, RBC Morphology Normal 07/23/19 08:31: Sodium 141, Potassium 3.4 L D, Chloride 110 H, Carbon Dioxide 23 D, Anion Gap 11.4, BUN 23 H D, Creatinine 0.90, Estimated Creat Clear 39, Estimated GFR 84, Est GFR ( Amer) 102 D, Glucose 90, Calcium 8.3 L D 07/24/19 06:11: WBC 6.7 D, RBC 3.37 L, Hgb 9.7 L, Hct 29.7 L, MCV 87.9, MCH 28.8, MCHC 32.8, RDW 19.5 H, Plt Count 98 L, MPV 8.3, Neut % (Auto) 80.7 H, Lymph % (Auto) 8.2 L, [place] % (Auto) 7.5, Eos % (Auto) 3.5, Baso % (Auto) 0.1, Neut # (Auto) 5.4, Lymph # (Auto) 0.5 L, [place] # (Auto) 0.5, Eos # (Auto) 0.2, Baso # (Auto) 0.0 07/24/19 06:11: Sodium 137, Potassium 3.4 L, Chloride 108 H, Carbon Dioxide 22, Anion Gap 10.4, BUN 20, Creatinine 0.90, Estimated Creat Clear 41, Estimated GFR 84, Est GFR ( Amer) 102, Glucose 103 H, Calcium 8.5 I & O for Last 24 hours: Intake & Output 07/21/19 07/22/19 07/23/19 07/24/19 11:59 11:59 11:59 11:59 Intake Total 240 / 240 1365 / 1365 Output Total 525 / 525 875 / 875 Balance -285 / -285 490 / 490 Weight 87 lb 90 lb 5 oz Microbiology Reports for the Last 24 Hours: Microbiology 07/22/19 13:00 Blood Blood Culture - Preliminary 07/22/19 13:00 Blood Blood Culture - Preliminary 07/22/19 13:00 Throat Group A Streptococcus Screen (KALANI) - Final Negative for Group A Streptococcus. Narrative: Patient is awake and alert this morning. Overall he looks more energetic. Oropharynx is moist. Lungs are clear. Heart has a regular rate and rhythm. Abdomen is soft, nontender and mildly distended from ascites. Assessment and Plan (1) Bacteremia Current visit: Yes Status: Acute Category: Medical Code(s): R78.81 - Bacteremia (2) Dehydration Current visit: Yes Status: Acute Category: Medical Code(s): E86.0 - Dehydration (3) Hepatic cirrhosis due to chronic hepatitis C infection Current visit: No Status: Acute Category: Medical Code(s): B18.2 - Chronic viral hepatitis C; K74.60 - Unspecified cirrhosis of liver (4) Protein calorie malnutrition Current visit: No Status: Acute Category: Medical Code(s): E46 - Unspecified protein-calorie malnutrition - Assessment and plan all Dx Assessment and Plan for all problems:: 1. Continue broad-spectrum antibiotics 2. Patient will be placed on his preferred vegetarian diet 3. Repeat labs in a.m. 4. DC Sparks catheter 5. Reduce IV fluids 6. Out of bed to chair today and up with assistance
--- NOTE | 2019-07-24 16:06 | Electrocardiograph Report ---
APPROVED REPORT Exam: Resting ECG HR:122 bpm ECG Measurements Heart Rate 122 AXES [place] 168 P QRSd 60 QRS 79 QT 436 T265 QTc 621 <Conclusion> Sinus tachycardia with frequent premature ventricular complexes and fusion complexes ST & T wave abnormality, consider inferior ischemia ST & T wave abnormality, consider anterolateral ischemia Abnormal ECG Electronically signed by : Antony Bermeo, 07/24/2019 16:05:47
[2019-07-25 05:45] LABS: Basophils % 0.2 % (0.1-2.0); Eosinophils # 0.5 K/mm3 (0.0-0.4); Hematocrit 30.5 % (42.0-52.0); Hemoglobin 9.4 g/dL (14.1-18.0); Lymphocytes # 0.8 K/mm3 (0.7-4.5); Lymphocytes % 10.1 % (10-50); Mean Corpuscular HGB Conc 30.8 g/dL (31.8-35.4); Mean Platelet Volume 8.1 fl (7.4-10.4); Monocytes # 0.6 K/mm3 (0.1-1.0); Monocytes % 7.6 % (1.7-9.3); Neutrophils # 5.8 K/mm3 (1.8-7.8); Neutrophils % 76.1 % (37.0-80.0); Platelet Count 101 K/mm3 (142-424); Red Blood Count 3.47 M/mm3 (4.60-6.20); Red Cell Distribution Width 16.7 % (11.5-17.5); White Blood Count 7.6 K/mm3 (4.8-10.8)
[2019-07-25 05:52] LABS: Anion Gap 10.5 mEq/L (5-15); Calcium 7.9 mg/dl (8.4-10.2)
--- NOTE | 2019-07-25 07:50 | Progress Note ---
Internal Medicine - PN: Subj *Date: 07/25/19 *Time: 07:48 Interval history: Patient has no complaints this morning. He was ordered duo nebs yesterday after he developed some wheezing. He denies shortness of breath. Patient has not been out of bed yet since admission although feels like he is unable to. Exam Vital signs and Labs for Last 24 Hours: Temp Pulse Resp BP Pulse Ox 98.4 F 58 L 16 110/76 97 07/25/19 04:00 07/25/19 06:34 07/25/19 04:00 07/25/19 04:00 07/25/19 04:00 Laboratory Results - last 24 hr 07/22/19 13:00: Urine Color Yellow, Urine Appearance Clear, Urine pH 6.0, Ur Specific [place] 1.020, Urine Protein 1+, Urine Glucose (UA) Trace, Urine Ketones Negative, Urine Blood Trace-i, Urine Nitrate Negative, Urine Bilirubin Negative, Urine Urobilinogen 2.0, Ur Leukocyte Esterase Negative, Urine RBC 3-5, Urine WBC Occasional, Ur Squamous Epith Cells 10-20, Ur Renal Epithelial Cell Occasional, Urine Bacteria None 07/25/19 05:34: WBC 7.6, RBC 3.47 L, Hgb 9.4 L, Hct 30.5 L, MCV 88.0, MCH 27.1, MCHC 30.8 L, RDW 16.7, Plt Count 101 L, MPV 8.1, Neut % (Auto) 76.1, Lymph % (Auto) 10.1, [place] % (Auto) 7.6, Eos % (Auto) 6.0, Baso % (Auto) 0.2, Neut # (Auto) 5.8, Lymph # (Auto) 0.8, [place] # (Auto) 0.6, Eos # (Auto) 0.5 H, Baso # (Auto) 0.0 07/25/19 05:34: Sodium 135 L, Potassium 3.5, Chloride 107, Carbon Dioxide 21 L, Anion Gap 10.5, BUN 17, Creatinine 0.80, Estimated Creat Clear 41, Estimated GFR 96, Est GFR ( Amer) 116, Glucose 75 D, Calcium 7.9 L I & O for Last 24 hours: Intake & Output 07/22/19 07/23/19 07/24/19 07/25/19 11:59 11:59 11:59 11:59 Intake Total 240 / 240 1485 / 1485 1914 Output Total 525 / 525 875 / 875 Balance -285 / -285 610 / 610 1914 Weight 87 lb 90 lb 5 oz 88 lb 6 oz Microbiology Reports for the Last 24 Hours: Microbiology 07/22/19 13:00 Blood Blood Culture - Preliminary Gram Positive Cocci 07/22/19 13:00 Blood Blood Culture - Preliminary 07/22/19 13:00 Throat Group A Streptococcus Screen (KALANI) - Final Negative for Group A Streptococcus. Narrative: He is laying in bed eating breakfast this morning. He is in no distress. Lungs have faint expiratory wheeze in the left upper lobe anteriorly. Heart has a regular rate and rhythm. Abdomen is soft and nontender. Lower extremities have no edema. Assessment and Plan (1) Bacteremia Current visit: Yes Status: Acute Category: Medical Code(s): R78.81 - Bacteremia (2) Dehydration Current visit: Yes Status: Acute Category: Medical Code(s): E86.0 - Dehydration (3) Hepatic cirrhosis due to chronic hepatitis C infection Current visit: No Status: Acute Category: Medical Code(s): B18.2 - Chronic viral hepatitis C; K74.60 - Unspecified cirrhosis of liver (4) Protein calorie malnutrition Current visit: No Status: Acute Category: Medical Code(s): E46 - Unspecified protein-calorie malnutrition - Assessment and plan all Dx Assessment and Plan for all problems:: 1. Await blood cultures identification and sensitivities. Culture appears to be growing Streptococcus species 2. PT eval today
[2019-07-26 06:05] LABS: Basophils % 0.1 % (0.1-2.0); Eosinophils # 0.5 K/mm3 (0.0-0.4); Eosinophils % 6.3 % (0.1-12.0); Hematocrit 33.4 % (42.0-52.0); Hemoglobin 10.7 g/dL (14.1-18.0); Lymphocytes # 0.8 K/mm3 (0.7-4.5); Lymphocytes % 11.1 % (10-50); Mean Corpuscular Volume 87.1 fl (80-94); Mean Platelet Volume 8.5 fl (7.4-10.4); Monocytes # 0.8 K/mm3 (0.1-1.0); Monocytes % 10.7 % (1.7-9.3); Neutrophils # 5.3 K/mm3 (1.8-7.8); Neutrophils % 71.8 % (37.0-80.0); Platelet Count 131 K/mm3 (142-424); Red Blood Count 3.83 M/mm3 (4.60-6.20); Red Cell Distribution Width 17.3 % (11.5-17.5); White Blood Count 7.4 K/mm3 (4.8-10.8)
[2019-07-26 06:13] LABS: Anion Gap 10.8 mEq/L (5-15); Calcium 8.3 mg/dl (8.4-10.2)
--- NOTE | 2019-07-26 07:49 | Discharge Summary ---
General - General Admission date:: 07/22/19 Discharge date: 07/26/19 HPI HPI: 69-year-old male with known cirrhosis from hepatitis C was brought to the hospital via EMS with profound weakness. Patient was found at home by some Associates apparently unable to ambulate and maintain basic hygiene. History is somewhat unclear as there is no one present this morning with the patient and he simply states he was encouraged to seek care. He was brought to the emergency department where he was cleaned up and found to be quite weak and disheveled. Patient's white blood cell count was elevated as was his lactic acid. Labs were otherwise remarkable for urine drug screen positive for marijuana. Patient was felt to be dehydrated and was admitted for IV fluids. This morning he is awake and oriented to person. Hospital Course Hospital Course: Patient was admitted for IV fluids due to dehydration. The following morning blood cultures turned positive for a gram-positive cocci. Patient was started on broad-spectrum antibiotics with cefepime and vancomycin and we awaited cultures. Patient improved each day and no source of infection was found as patient's imaging was negative for pneumonia, urinalysis was negative for UTI and exam did not reveal any source of infection. Ultimately Staphylococcus hominis grew from 1 aerobic bottle and multiple organisms were growing from the other bottles consistent with contamination. This was discussed with the lab. As patient had never had any signs of infection and had been afebrile this was consistent with contamination of his blood cultures as well. Patient was discharged home on July 25. Adult Protective Services was contacted upon admission. They will follow-up with the patient once he returns home. Objective Vital signs: Temp Pulse Resp BP Pulse Ox 97.0 F L 53 L 16 125/70 97 07/26/19 07:32 07/26/19 07:32 07/26/19 07:32 07/26/19 07:32 07/26/19 07:32 Narrative: Patient is awake and alert on the day of discharge. Lungs are clear. Heart has a regular rate and rhythm. Abdomen is soft with mild distention from his chronic liver disease. Extremities are without edema Results Labs on day of discharge: Labs from last 24 hours 07/26/19 07/26/19 07/22/19 05:44 05:44 13:00 WBC 7.4 RBC 3.83 L Hgb 10.7 L Hct 33.4 L MCV 87.1 MCH 27.9 MCHC 32.0 RDW 17.3 Plt Count 131 L D MPV 8.5 Neut % (Auto) 71.8 Lymph % (Auto) 11.1 [place] % (Auto) 10.7 H Eos % (Auto) 6.3 Baso % (Auto) 0.1 Neut # (Auto) 5.3 Lymph # (Auto) 0.8 [place] # (Auto) 0.8 Eos # (Auto) 0.5 H Baso # (Auto) 0.0 Sodium 135 L Potassium 3.8 Chloride 103 Carbon Dioxide 25 Anion Gap 10.8 BUN 17 Creatinine 0.90 Estimated Creat Clear 41 Estimated GFR 84 Est GFR ( Amer) 102 Glucose 99 Calcium 8.3 L Urine Color Yellow Urine Appearance Clear Urine pH 6.0 Ur Specific [place] 1.020 Urine Protein 1+ Urine Glucose (UA) Trace Urine Ketones Negative Urine Blood Trace-i Urine Nitrate Negative Urine Bilirubin Negative Urine Urobilinogen 2.0 Ur Leukocyte Esterase Negative Urine RBC 3-5 Urine WBC Occasional Ur Squamous Epith Cells 10-20 Ur Renal Epithelial Cell Occasional Urine Bacteria None Preliminary micro results at discharge 07/22/19 13:00 Blood Culture - Preliminary Blood Staphylococcus hominis 07/22/19 13:00 Blood Culture - Preliminary Blood Gram Positive Cocci Gram Positive Cocci#2 DS: Diagnosis - Discharge Diagnosis (1) Bacteremia Status: Ruled-out (2) Dehydration Status: Acute (3) Hepatic cirrhosis due to chronic hepatitis C infection Status: Acute (4) Protein calorie malnutrition Status: Acute Discharge Plan - Patient Discharge Instructions ACTIVITY: Continue current activity DIET: continue same diet Patient Instructions: DI for Dehydration -- Adult, DI for Muscle Weakness, DI for Malnutrition - Older Adults, DI for Altered Mental Status, DI for Bacteremia--Child - Follow up Plan Disposition: Home, Self-[facility] Medications: Home Medications Medication Instructions Recorded Confirmed Type Propranolol HCl 10 mg PO DAILY 07/22/19 07/22/19 History Spironolactone 50 mg PO BID 07/22/19 07/22/19 History Prescriptions/Medication Reconciliation: Continued Propranolol HCl 10 mg PO DAILY Spironolactone 50 mg PO BID - Problem Reconciliation Problems Reviewed?: Yes
--- NOTE | 2019-07-26 10:38 | Progress Note ---
Internal Medicine - PN: Subj *Date: 07/26/19 *Time: 10:37 Exam Vital signs and Labs for Last 24 Hours: Temp Pulse Resp BP Pulse Ox 97.0 F L 54 L 16 125/70 97 07/26/19 07:32 07/26/19 08:00 07/26/19 07:32 07/26/19 07:32 07/26/19 08:00 Laboratory Results - last 24 hr 07/22/19 13:00: Urine Color Yellow, Urine Appearance Clear, Urine pH 6.0, Ur Specific [place] 1.020, Urine Protein 1+, Urine Glucose (UA) Trace, Urine Ketones Negative, Urine Blood Trace-i, Urine Nitrate Negative, Urine Bilirubin Negative, Urine Urobilinogen 2.0, Ur Leukocyte Esterase Negative, Urine RBC 3-5, Urine WBC Occasional, Ur Squamous Epith Cells 10-20, Ur Renal Epithelial Cell Occasional, Urine Bacteria None 07/26/19 05:44: WBC 7.4, RBC 3.83 L, Hgb 10.7 L, Hct 33.4 L, MCV 87.1, MCH 27.9, MCHC 32.0, RDW 17.3, Plt Count 131 L D, MPV 8.5, Neut % (Auto) 71.8, Lymph % (Auto) 11.1, [place] % (Auto) 10.7 H, Eos % (Auto) 6.3, Baso % (Auto) 0.1, Neut # (Auto) 5.3, Lymph # (Auto) 0.8, [place] # (Auto) 0.8, Eos # (Auto) 0.5 H, Baso # (Auto) 0.0 07/26/19 05:44: Sodium 135 L, Potassium 3.8, Chloride 103, Carbon Dioxide 25, Anion Gap 10.8, BUN 17, Creatinine 0.90, Estimated Creat Clear 41, Estimated GFR 84, Est GFR ( Amer) 102, Glucose 99, Calcium 8.3 L I & O for Last 24 hours: Intake & Output 07/23/19 07/24/19 07/25/19 07/26/19 23:59 23:59 23:59 23:59 Intake Total 1605 / 1605 1135 / 1135 1354 / 1354 120 / 120 Output Total 1150 / 1400 250 / 250 Balance 455 / 205 885 / 885 1354 / 1354 120 / 120 Weight 39.463 kg 40.965 kg 40 kg 41.362 kg Microbiology Reports for the Last 24 Hours: Microbiology 07/22/19 13:00 Blood Blood Culture - Preliminary Staphylococcus hominis 07/22/19 13:00 Blood Blood Culture - Preliminary Gram Positive Cocci Gram Positive Cocci#2 Assessment and Plan (1) Bacteremia Current visit: Yes Status: Ruled-out Category: Medical Code(s): R78.81 - Bacteremia (2) Dehydration Current visit: Yes Status: Acute Category: Medical Code(s): E86.0 - Dehydration (3) Hepatic cirrhosis due to chronic hepatitis C infection Current visit: No Status: Acute Category: Medical Code(s): B18.2 - Chronic viral hepatitis C; K74.60 - Unspecified cirrhosis of liver (4) Protein calorie malnutrition Current visit: No Status: Acute Category: Medical Code(s): E46 - Unspecified protein-calorie malnutrition The patient's infection will respond to the chosen ABx?: No (INFECTION RULED OUT) Is the patient receiving the right drug, dose, and route?: No Could a more targeted ABx be ordered?: No (INFECTION RULED OUT, ABX DISCONTINUED TODAY) 0 (INFECTION RULED OUT TODAY, ABX DISCONTINUED)
== END 2019-07-26 13:15 | disposition home or self-care (01) ==
LOC: 2ND 13:06 → ER 13:06 → 2ND 17:55
PROVIDERS: ADMIT Emergency Medicine; ATTEND Family Medicine
CPT/HCPCS: 36415; 70450; 71010; 71045; 74177; 80048; 80053; 80305; 80329; 81001; 82140; 82150; 82550; 82553; 83605; 83690; 84484; 85007; 85025; 85610; 85730; 87040; 87077; 87186; 87275; 87276; 87430; 93005; 94640; 96365; 97161; 99285; G0378; J0692; J3370; Q9967

== ENCOUNTER 2019-09-04 19:31 | Inpatient (IN) | payer MEDICARE, SELFPAY ==
[2019-09-04 19:29] VITALS: BP 139/73; PULSE 83; RESP 21; TEMP 36.5; O2SAT 100; BMI 17.0
--- NOTE | 2019-09-04 19:34 | XR_ITS ---
PROCEDURE: XR CHEST PORTABLE CLINICAL HISTORY: AMS Abdominal distension COMPARISON: CXR2 XR chest AP from 11/18/2017 XR CHEST PORTABLE from 04/21/2019 XR CHEST PORTABLE from 07/22/2019 FINDINGS: The cardiomediastinal silhouette and pulmonary vascularity are within normal limits. There is some patchy increased density in the right mid lung field. This could be related to artifact from soft tissue attenuation however, ground-glass infiltrate is also considered. Patient is moderately rotated. Consider repeat exam without rotation for further evaluation. The remaining lungs are clear. There is an old left humeral neck fracture No acute bony abnormalities. IMPRESSION: Possible right midlung infiltrate Dictated by: Prasanth Alvarado MD 09/05/2019 08:17 Electronically signed by Prasanth Alvarado MD in [place] 09/05/2019 08:17
--- NOTE | 2019-09-04 19:34 | PC.NURSE ---
called rad to notify of xray order
--- NOTE | 2019-09-04 19:40 | CT_ITS ---
PROCEDURE: CT ABDOMEN PELVIS W CON CLINICAL INDICATION: abd distention, hypoactive bs The COMPARISON: CT ABDOMEN PELVIS W CON from 07/22/2019 TECHNIQUE: IV Contrast: 75ML OPTIRAY 350 Oral Contrast 20ml Gastroview Axial images obtained with sagittal and coronal reformats. All CT scans at the facility use one or more dose reduction, viz: automated exposure control, ma/kV adjustment per patient size (including targeted exams where dose is matched to indication, i.e. head), or iterative reconstruction technique. FINDINGS: LOWER THORAX: There is a small right pleural effusion. There are mild fibrotic changes in the lung bases with some mild atelectasis in the left lung base. ABDOMEN & PELVIS: There is diffuse abdominal peritoneal ascites. The ascites has increased since the previous exam. A there appears to be a loculated area of fluid collection in the left mid and anterior aspect of the abdomen at 18 x 4.5 by 6.9 cm. There is diffuse thickening of the small and large bowel which may be secondary to the ascites. No renal or ureteral calculi or hydronephrosis. No intestinal obstruction or free air. The appendix is not clearly delineated. There is a Sparks catheter present. There is diffuse calcification of the seminal vesicles in there is a coarse calcification in the central aspect of the pelvis at 1.3 cm nonspecific. There is enhancement of the anterior aspect of the peritoneum. This is mostly vascular in nature in may be due to the portal hypertension. No definite nodularity of the peritoneum. Varices noted around the internal hemorrhoid veins. IMPRESSION: The 1. Small right effusion. 2. Diffuse ascites which is increased in volume with cirrhosis. 3. Diffuse thickening of large and small bowel which could be related to the underlying ascites and cirrhosis. Infectious/inflammatory the the enterocolitis is also consideration. 4. Loculated fluid collection in the left abdomen anteriorly Dictated by: Prasanth Alvarado MD 09/05/2019 09:12 Electronically signed by Prasanth Alvarado MD in [place] 09/05/2019 09:12
--- NOTE | 2019-09-04 19:40 | ECG_ITS ---
APPROVED REPORT Exam: Resting ECG HR:92 bpm ECG Measurements Heart Rate 92 AXES ID 172 P 7 QRSd 58 QRS -22 QT 388 T -21 QTc 479 <Conclusion> Sinus rhythm with occasional premature ventricular complexes and Pac's Low voltage QRS Consider old Inferior NV Abnormal ECG Electronically signed by : Jung Hayes, 09/05/2019 14:07:33
--- NOTE | 2019-09-04 19:50 | HMH.EDGENADL ---
ED Disposition Condition on Discharge: Good - Critical Care Critical Care Time: No <Jun Lobo - Last Filed: 09/04/19 19:50> Condition on Discharge: Serious <Tyrone Dennis - Last Filed: 09/04/19 22:57> Clinical Impression: Weakness, Hepatic encephalopathy, Peritoneal carcinomatosis Altered mental status Qualifiers: Altered mental status type: delirium Qualified Code(s): R41.0 - Disorientation, unspecified Cirrhosis of liver with ascites Qualifiers: Hepatic cirrhosis type: unspecified hepatic cirrhosis Qualified Code(s): K74.60 - Unspecified cirrhosis of liver; R18.8 - Other ascites Disposition: Admitted As Inpatient Referrals: Gerald Bailon MD [Primary Care Provider] - Attestation: On 09/04/19, the high probability of a clinically significant, sudden or life threatening deterioration of the following system(s) required my full and direct attention, intervention and personal management. The time I documented below is in addition to time spent performing reported procedures but includes the following listed in this critical care notation. Medical Decision Making - Medical Records Medical records reviewed: Yes: I reviewed the patient's medical records. - Fredi Inquiry Pt receiving controlled substance: No - Lab Data Lab results reviewed: No: I reviewed the patient's lab results. <Jun Lobo - Last Filed: 09/04/19 19:50> - Lab Data Result diagrams: 09/04/19 19:20 09/04/19 19:20 - Radiology Data #1 Image(s): Chest Image Reviewed: Yes I reviewed the patient's radiology image Preliminary Findings: Abnormal (copd) - CT Data CT Scan: Head, Abdomen, Pelvis Time Received: 22:[address] Reviewed: Yes: I have viewed the radiologist's interpretation Preliminary Findings: Abnormal (see report) - Physician Consults Physician Consulted: alirio Reason -: Admission - Reevaluation(s) Time: 22:52 <Tyrone Dennis - Last Filed: 09/04/19 22:57> Vital Signs: 09/04/19 19:29 09/04/19 20:30 09/04/19 22:44 Temperature 97.7 F 97.4 F L Temperature Source Oral Rectal Pulse Rate [Right Brachial] 83 48 L Respiratory Rate 21 18 Blood Pressure [Right Arm] 139/73 144/75 H Blood Pressure Mean [Right Arm] 95 98 Blood Pressure Source [Right Arm] Automatic Cuff Blood Pressure Position [Right Arm] Sitting 02 Sat by Pulse Oximetry 100 100 Oxygen Delivery Method Room Air Nasal Cannula Oxygen Flow Rate (LPM) 2 - Lab Data Lab Results 09/04/19 19:20: WBC 7.7, RBC 3.03 L, Hgb 9.0 L, Hct 26.3 L, MCV 86.8, MCH 29.8, MCHC 34.3, RDW 21.2 H, Plt Count 189, MPV 8.1, Neut % (Auto) 79.1, Lymph % (Auto) 8.9 L, [place] % (Auto) 10.8 H, Eos % (Auto) 1.0, Baso % (Auto) 0.2, Neut # (Auto) 6.1, Lymph # (Auto) 0.7, [place] # (Auto) 0.8, Eos # (Auto) 0.1, Baso # (Auto) 0.0 09/04/19 19:20: Sodium 136, Potassium 4.4, Chloride 106, Carbon Dioxide 27, Anion Gap 7.4, BUN 18, Creatinine 0.80, Estimated Creat Clear 51, Estimated GFR 96, Est GFR ( Amer) 116, Glucose 110 H, Calcium 8.6, Total Bilirubin 2.2 H, AST 37, ALT 15, Alkaline Phosphatase 151 H, Troponin I < 0.01, Total Protein 8.9 H, Albumin 2.9 L, Globulin 6.0 H, Albumin/Globulin Ratio 0.5 L 09/04/19 19:20: Amylase < 30 L, Lipase 81 09/04/19 20:05: Urine Color Dk yellow, Urine Appearance Clear, Urine pH 6.0, Ur Specific [place] >= 1.030, Urine Protein Negative, Urine Glucose (UA) Negative, Urine Ketones Negative, Urine Blood Negative, Urine Nitrate Negative, Urine Bilirubin Negative, Urine Urobilinogen 1.0, Ur Leukocyte Esterase Negative, Urine RBC Occasional, Amorphous Sediment Trace 09/04/19 20:22: Lactate 2.7 H 09/04/19 20:22: Ammonia 80 H 09/04/19 20:32: Influenza Type A Ag Negative, Influenza Type B Ag Negative 09/04/19 20:32: Group A Strep Rapid Negative Orders (Tests/Meds): ED MEDICATIONS Generic Name Dose Route Start Last Admin Trade Name Freq PRN Reason Stop Dose Admin Lactulose 40 gm 09/05/19 22:46 Chronulac 20gm/30ml Udc PO 09/05/19
[2019-09-04 20:01] VITALS: BP 125/76; PULSE 85; RESP 19; O2SAT 99
[2019-09-04 20:11] LABS: Eosinophils # 0.1 K/mm3 (0.0-0.4); Lymphocytes # 0.7 K/mm3 (0.7-4.5); Mean Platelet Volume 8.1 fl (7.4-10.4)
[2019-09-04 20:15] LABS: Alanine Aminotransferase 15 U/L (12-78); Albumin Level 2.9 g/dl (3.5-5.0); Albumin/Globulin Ratio 0.5 (1.1-1.8); Alkaline Phosphatase 151 U/L (38-126); Anion Gap 7.4 mEq/L (5-15); Aspartate Amino Transferase 37 U/L (17-59); Bilirubin,Total 2.2 mg/dl (0.2-1.3); Blood Urea Nitrogen 18 mg/dl (9-20); Calcium 8.6 mg/dl (8.4-10.2); Carbon Dioxide 27 mmol/L (22.0-30.0); Chloride 106 mmol/L (98-107); Creatinine Clearance Estimated 51 mL/min (50-200); Estimated Glomerular Filt Rate 96 ml/min (>60); GFR (African American) 116 ML/MIN (>60); Glucose 110 mg/dl (74-100); Potassium 4.4 mmoL/L (3.5-5.1); Sodium 136 mmol/L (136-145); Total Protein,Serum 8.9 g/dl (6.3-8.2)
[2019-09-04 20:16] LABS: Basophils % 0.2 % (0.1-2.0); Hematocrit 26.3 % (42.0-52.0); Lymphocytes % 8.9 % (10-50); Mean Corpuscular HGB Conc 34.3 g/dL (31.8-35.4); Mean Corpuscular Hemoglobin 29.8 pg (27.0-31.2); Mean Corpuscular Volume 86.8 fl (80-94); Monocytes # 0.8 K/mm3 (0.1-1.0); Monocytes % 10.8 % (1.7-9.3); Neutrophils # 6.1 K/mm3 (1.8-7.8); Neutrophils % 79.1 % (37.0-80.0); Platelet Count 189 K/mm3 (142-424); Red Blood Count 3.03 M/mm3 (4.60-6.20); Red Cell Distribution Width 21.2 % (11.5-17.5); White Blood Count 7.7 K/mm3 (4.8-10.8)
[2019-09-04 20:30] VITALS: BP 118/71; PULSE 82; RESP 22; TEMP 36.3; O2SAT 98
[2019-09-04 20:32] LABS: Microscopic, Urine URINE MICROSCOPIC (MICROSCOPIC)
[2019-09-04 20:37] LABS: Lipase 81 U/L (23-300)
[2019-09-04 20:41] LABS: Amylase < 30 U/L (30-110); Troponin I < 0.01 ng/ml (0.00-0.034)
--- NOTE | 2019-09-04 20:43 | PC.NURSE ---
rad present to the ED to take pt to CT
[2019-09-04 20:51] LABS: Ammonia 80 umol/L (9-30)
[2019-09-04 20:52] LABS: Appearance,Urine CLEAR (Clear); Bilirubin,Urine Negative (Negative); Blood, Urine Negative (Negative); Color,Urine DK YELLOW (Yellow); Glucose,Urine (UA) Negative (Negative); Ketones,Urine Negative (Negative); Leukocyte Esterase,Urine Negative (Negative); Nitrate,Urine Negative (Negative); Protein,Urine Negative (Negative); Specific Gravity, Urine >= 1.030 (1.005-1.030)
[2019-09-04 20:55] LABS: Amorphous Sediment,Urine Trace /lpf; RBC,Urine Occasional #/hpf (0-3)
[2019-09-04 20:56] LABS: Lactic Acid 2.7 mmol/L (0.7-2.1)
--- NOTE | 2019-09-04 21:12 | CT_ITS ---
PROCEDURE: CT HEAD/BRAIN WO CON CLINICAL INDICATION: ams Altered mental status, altered level of consciousness, confusion, disorientation COMPARISON: CT HEAD/BRAIN WO CON from 07/22/2019 TECHNIQUE: Axial images obtained. All CT scans at the facility use one or more dose reduction, viz: automated exposure control, ma/kV adjustment per patient size (including targeted exams where dose is matched to indication, i.e. head), or iterative reconstruction technique. FINDINGS: No midline shift, mass effect, intracranial hemorrhage, hydrocephalus, or extra-axial fluid collection is evident. There is generalized atrophy with hypoattenuation of the periventricular white matter consistent with microangiopathic changes. The calvarium has an unremarkable appearance. No mastoid effusion. No sinus air-fluid level. IMPRESSION: No acute intracranial finding Dictated by: Prasanth Alvarado MD 09/05/2019 08:40 Electronically signed by Prasanth Alvarado MD in [place] 09/05/2019 08:40
[2019-09-04 21:15] LABS: Strep Scrn Group A (Rapid) Negative (Negative)
--- NOTE | 2019-09-04 21:40 | PC.NURSE ---
pt still in CT
--- NOTE | 2019-09-04 22:42 | PC.NURSE ---
lab unsuccessful with blood draw. er staff at bedside
[2019-09-04 22:44] VITALS: BP 144/75; PULSE 48; RESP 18; O2SAT 100
[2019-09-04 23:02] LABS: Occult Blood,Gastric Fluid Positive (Negative)
[2019-09-04 23:07] LABS: Prothrombin Time 14.3 seconds (9.4-11.8)
[2019-09-04 23:13] LABS: Troponin I < 0.01 ng/ml (0.00-0.034)
[2019-09-04 23:28] VITALS: BP 128/78; PULSE 81; RESP 16; TEMP 36.8; O2SAT 100
[2019-09-04 23:40] VITALS: BP 103/54; PULSE 95; RESP 16; TEMP 36.8; O2SAT 100; BMI 16.4
--- NOTE | 2019-09-04 23:41 | PC.NURSE ---
PT ARRIVED TO THE FLOOR VIA STRETCHER FROM ED @ 0576
[2019-09-05] VITALS (29 sets, daily range): BP systolic 93–128; BP diastolic 43–85; PULSE 64–104; RESP 16–24; TEMP 36.4–36.9; O2SAT 94–100; BMI 16.3
[2019-09-05 00:15] LABS: Reflex Lactic Add Lactic Reflex
[2019-09-05 00:48] LABS: Lactic Acid Follow Up (RFLX 1) 1.9 mmol/L (0.7-2.1)
--- NOTE | 2019-09-05 01:48 | PC.NURSE ---
Pt arrived to floor drowsy and alert to self. Bath given per staff and warm blankets applied. Upon assessment, pt noted to be very thin. Lungs noted to have scattered wheezing. He is currently on O2 1 L NC. He states is is soa at times. Abdomen distended and firm. He denies any tenderness. BS hypoactive. F/C draining to bedside with clear, dark yellow urine. VSS. During review of home medications, pt stated that he does not take any medications. NS infusing @ 50 ml/hr. Protonix gtt infusing @ 10 ml/hr. Consulted with ER about medication order, Lactulose. Give 40 gm Lactulose rectally one time now. Pharmacy consulted. Medication administered. No other concerns at this time. Will continue to monitor.
[2019-09-05 06:45] LABS: Basophils % 0.3 % (0.1-2.0); Eosinophils # 0.3 K/mm3 (0.0-0.4); Eosinophils % 3.9 % (0.1-12.0); Lymphocytes # 0.8 K/mm3 (0.7-4.5); Lymphocytes % 12.5 % (10-50); Mean Corpuscular HGB Conc 35.7 g/dL (31.8-35.4); Mean Corpuscular Hemoglobin 30.6 pg (27.0-31.2); Mean Corpuscular Volume 85.7 fl (80-94); Monocytes # 0.6 K/mm3 (0.1-1.0); Monocytes % 9.2 % (1.7-9.3); Neutrophils # 4.9 K/mm3 (1.8-7.8); Platelet Count 139 K/mm3 (142-424); Red Blood Count 2.59 M/mm3 (4.60-6.20); Red Cell Distribution Width 21.4 % (11.5-17.5); White Blood Count 6.7 K/mm3 (4.8-10.8)
[2019-09-05 06:55] LABS: Hematocrit 22.2 % (42.0-52.0); Hemoglobin 7.9 g/dL (14.1-18.0)
--- NOTE | 2019-09-05 07:00 | US_ITS ---
PROCEDURE: US PARACENTESIS CLINICAL INDICATION: progressing ascites COMPARISON: No exams were available for comparison TECHNIQUE: Informed consent was obtain prior to procedure. After appropriate Time out, under aseptic conditions and local anesthesia with 1% buffered lidocaine using sonographic guidance a 6 [place] Gbrk-T-Xicccflx catheter was inserted into the largest pocket of fluid localized in the right lower quadrant. Approximately 2360 mL of Serosanguineous fluid was drained. The patient tolerated the procedure well and left the radiology suite in stable condition. FINDINGS: Ascites noted IMPRESSION: Successful sonographic guided paracentesis without complication. Dictated by: Prasanth Alvarado MD 09/08/2019 09:57 Electronically signed by Prasanth Alvarado MD in [place] 09/08/2019 09:57
--- NOTE | 2019-09-05 07:10 | HMH.HP ---
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 The exact circumstances under which he made it to the emergency department are unclear. It is believed a neighbor found the patient in a disheveled state and called EMS. In the emergency department patient was evaluated. He is weak and cachectic appearing. He was noted to have abdominal distention consistent with ascites. While he has known cirrhosis he has no history of encephalopathy or esophageal varices. Patient was found to have an elevated ammonia level of 80 and while in the emergency department had a single episode of hematemesis. This morning the patient reports he has been vomiting although he cannot give specifics in regards to when his vomiting began and how frequently he is vomiting. He reports normal stools at this time. He denies fevers or chills. Patient was admitted for anticipated paracentesis and suspected upper GI bleed. Patient was admitted on Protonix drip. Patient does not recall ever having ultrasound-guided paracentesis performed for ascites. Patient was hospitalized approximately 6 weeks ago and at discharge was placed on propranolol and spironolactone which were his home medications. Patient states he has not been taking these medications. [facility] History I have reviewed the patient's past medical history: Yes Medical History: Reports:: Atrial Fibrillation Denies:: Cancer, Diabetes Mellitus Type 1, Diabetes Mellitus Type 2, Internal Pacemaker, MRSA *Have you ever received a pneumonia vaccine?: Yes *Have you received a flu vaccine this season?: Yes Other Medical History: Reports: Anemia, Liver Disease (Cirrhosis from hepatitis C) Laterality Cases: Left: Total Hip Replacement Other Surgeries: Yes: Hernia Repair. No: Pacemaker Amputation: No Fractures: Yes (BOTH LEGS; RT RADIAL, LT ULNA, NOSE, JAW, TED:BLE 2INCHES SHORTER AFTER F) - *Social History Educational Level: Attended College Smoking Status: Former smoker Tobacco Type: cigarettes # Packs/Day (cigarettes): 1 #Yrs smoked (if former smoker): 50 Alcohol Intake: current Alcohol Intake Frequency:: a few times a month Substance Use Type: marijuana *Occupational Status:: retired Housing: house *Travel in the last 8 weeks: None Family Hx:: Unable to obtain Review of Systems - Constitutional Reports anorexia, Reports fatigue, Reports lack of energy, Denies body ache(s), Denies chills, Denies daytime sleepiness - *Cardiovascular Denies chest pain - *Respiratory Denies change in phlegm color, Denies chest congestion, Denies cough - *Gastrointestinal Reports vomiting blood, Reports vomiting, Denies abdominal pain, Denies belching, Denies loose stools - *Genitourinary Denies difficulty urinating - *Musculoskeletal Denies abnormal walking - Psychiatric Reports confusion Meds Home Medications Medication Instructions Recorded Confirmed Type No Known Home Medications 09/05/19 09/05/19 History Allergies Allergy/AdvReac Type Severity Reaction Status Date / Time No Known Allergies Allergy Verified 04/21/19 10:25 Exam Vital signs and Labs for Last 24 Hours: Temp Pulse Resp BP Pulse Ox 98.3 F 95 H 16 103/54 L 100 09/04/19 23:40 09/04/19 23:40 09/04/19 23:40 09/04/19 23:40 09/04/19 23:40 Laboratory Results - last 24 hr 09/04/19 19:20: WBC 7.7, RBC 3.03 L, Hgb 9.0 L, Hct 26.3 L, MCV 86.8, MCH 29.8, MCHC 34.3, RDW 21.2 H, Plt Count 189, MPV 8.1, Neut % (Auto) 79.1, Lymph % (Auto) 8.9 L, [place] % (Auto) 10.8 H, Eos % (Auto) 1.0, Baso % (Auto) 0.2, Neut # (Auto) 6.1, Lymph # (Auto) 0.7, [place] # (Auto) 0.8, Eos # (Auto) 0.1, Baso # (Auto) 0.0 09/04/19 19:20: Sodium 136, Potassium 4.4, Chloride 106, Carbon Dioxide 27, Anion Gap 7.4, BUN 18, Creatinine 0.80, Estimated Creat Clear 51, Estimated GFR
--- NOTE | 2019-09-05 07:17 | HMH.PHAVTE ---
[facility] Pharmacy VTE Monitoring - Patient Demographics Admission date: 09/05/19 Report Date: 09/05/19 Time: 07:17 Allergies/Adverse Reactions: Patient Allergies No Known Allergies Allergy (Verified 04/21/19 10:25) Height: 1.73 m Weight: 49.016 kg Patient Problems: Current Active Problems Weakness (Acute) Altered mental status (Acute) Hepatic encephalopathy (Acute) Cirrhosis of liver with ascites (Acute) Peritoneal carcinomatosis (Acute) - VTE Risk Labs: VTE Related Lab Results Hgb 7.9 g/dL (14.1-18.0) L* 09/05/19 06:09 Hct 22.2 % (42.0-52.0) L* 09/05/19 06:09 Plt Count 139 K/mm3 (142-424) L D 09/05/19 06:09 PT 14.3 seconds (9.4-11.8) H 09/04/19 19:20 INR 1.40 (0.9-1.1) H 09/04/19 19:20 BUN 18 mg/dl (9-20) 09/04/19 19:20 Creatinine 0.80 mg/dl (0.66-1.25) 09/04/19 19:20 Estimated Creat Clear 51 mL/min (50-200) 09/04/19 19:20 Clinical Trial Participant: No - Prophylaxis VTE Prophylaxis Ordered?: Yes Types of VTE Prophylaxis: TEDS Knee High
[2019-09-05 07:20] LABS: Chloride 113 mmol/L (98-107); Potassium 3.9 mmoL/L (3.5-5.1); Sodium 135 mmol/L (136-145)
--- NOTE | 2019-09-05 07:21 | HMH.PHAINT ---
HOME MEDICATION RECONCILIATION COMPLETED USING DISCHARGE LIST FORM LAST ADMISSION AT THE END OF JUNE AND DISCUSSION WITH PCP DR. GRAYSON
[2019-09-05 07:22] LABS: Blood Urea Nitrogen 20 mg/dl (9-20); Creatinine Clearance Estimated 49 mL/min (50-200); Estimated Glomerular Filt Rate 96 ml/min (>60); GFR (African American) 116 ML/MIN (>60)
[2019-09-05 07:23] LABS: Alanine Aminotransferase 14 U/L (12-78); Albumin Level 2.3 g/dl (3.5-5.0); Albumin/Globulin Ratio 0.5 (1.1-1.8); Alkaline Phosphatase 103 U/L (38-126); Anion Gap 2.9 mEq/L (5-15); Aspartate Amino Transferase 31 U/L (17-59); Carbon Dioxide 23 mmol/L (22.0-30.0); Globulin 4.7 g/dL (1.3-3.2); Glucose 88 mg/dl (74-100); Lactate Dehydrogenase 209 U/L (313-618)
[2019-09-05 07:24] LABS: Magnesium 1.7 mg/dl (1.6-2.3)
--- NOTE | 2019-09-05 10:53 | PC.NURSE ---
lab called to notify that blood was ready. pt is off the floor with radiology at this time. after radiology procedure pt will go to pre-op for egd.
[2019-09-05 11:08] LABS: Appearance,Body Fld. Normal; Source, Body Fld. Paracentesis Fluid; TNC,Body Fluid 104 cells/uL (< 1000); Volume,Body Fld. 2360 mL
[2019-09-05 11:09] LABS: RBC,Body Fluid < 10 cells/uL (< 10 X 10^3)
--- NOTE | 2019-09-05 11:30 | SUR.OPER ---
IV IN LEFT A/C STARTED LEAKING. NEW IV STARTED BY Lashon BAUTISTA CRNA. IV #22 RIGHT A/C. INFUSING WITHOUT DIFFICULTY.
--- NOTE | 2019-09-05 11:45 | HMH.PROC ---
[facility] Procedure Note Procedure Note:: Upper Endoscopy Procedure Report: Esophagogastroduodenoscopy with cold biopsies Endoscopost: Lloyd Ramos II, MD Referring Physician: Antony Zamora MD Date of Procedure: September 05, 2019 Equipment: Olympus GIF 180 standard upper endoscope Sedation: MAC sedation Indications: Mr. Martines is a 69-year-old gentleman with a history of hepatitis C and cirrhosis. The patient presented with ascites and moderate anemia. He did undergo paracentesis today. The patient initially had hemoglobin 9.0/hematocrit 26.3 and this dropped to 7.9 and 22.2. His labs showed alkaline phosphatase of 151, total bilirubin 2.2, albumin 2.9, AST 37 and ALT 15. He was occult positive. The patient has had moderate weight loss. He reports no melena or hematochezia. He does report some reflux and epigastric discomfort. He reports no dysphagia. Procedure: Prior to the procedure, a history and physical exam was performed, and patient's medications and allergies were reviewed. The risks, benefits and alternatives of the sedation and procedure were discussed with the patient. All questions were answered and informed consent was obtained. The patient was brought to the procedure room. Patient identification and proposed procedure were verified by the physician and the nurse. The patient was placed in a left lateral decubitus position and the scope was passed under direct vision. Throughout the procedure, the patient's blood pressure, pulse, and oxygen saturations were monitored continuously. The upper GI endoscopy was accomplished without difficulty. The patient tolerated the procedure well. Findings: The scope was passed directly into the upper esophagus and advanced to the third portion of the duodenum. The post bulbar duodenum had some mild peptic duodenitis and biopsies were taken from the post bulbar duodenum. The bulb and pylorus were normal. The scope was withdrawn into the stomach. The gastric lumen was small. There was some chronic gastritis but no evidence of portal gastropathy or gastric varices. Biopsies were taken from the lesser curvature and antrum for histology. Upon retroflexion there was a very small 1 to 2 cm hiatal hernia. The scope was withdrawn into the esophagus. There was no clear evidence of esophageal varices. There was grade D (LA classification) reflux esophagitis with superficial ulceration and erosion distally. Biopsies were taken from the ulcerated margins to rule out Ugarte's esophagus. There was some very mild esophageal stricturing. Impression: 1. Grade D reflux esophagitis (LA classification) with very small 1 to 2 cm hiatal hernia 2. Mild chronic gastritis with some mild peptic duodenitis Plan: I will follow-up the biopsies. There was no significant evidence of portal hypertension. I will recommend ongoing PPI therapy for reflux esophagitis. I would like to obtain HCVRNA levels and genotype. If the patient has not been treated, I would recommend discussion of therapy to prevent further decompensation.
--- NOTE | 2019-09-05 12:25 | HMH.ANESCL ---
[facility] Anesthesia Checklist - Patient Identification Patient Identification: Arm Band, Verbal (Name & ) - Structural Data Admitted From: Home Planned Operative Procedure/s: egd Consent for Planned Operative Procedure(s) Verified: Yes Verified Documents: History and Physical - NPO Status Verified Time NPO: 00:00 - Chart Verification Results Verified: CBC, BMP - Additional verifications Patient : No Anesthesia Reactions: No Hx Blood Transfusions: No Blood Transfusion Reaction: No Cephalosporin Allergy: No Previous Colonoscopy: No - Cardiovascular Assessment Heart Sounds: S1 & S2 Pulse Strength: Baseline Pulse Rhythm: Regular Peripheral Edema: No - Airway Assessment C-Spine Mobility Assessed: Yes TMJ Mobility Assessed: Yes Dentition: Poor Dentition - Neurological Assessment Level of Consciousness: Awake, Alert, Appropriate Hx Seizures: No Numbness or tingling in extremities: No - Anesthesia Plan Anesthesia Risk discussed: Yes Anesthesia Plan: Verified ASA Class: III Anesthesia Type: MAC [facility] History I have reviewed the patient's past medical history: Yes Medical History: Reports:: Atrial Fibrillation Denies:: Cancer, Diabetes Mellitus Type 1, Diabetes Mellitus Type 2, Internal Pacemaker, MRSA *Have you ever received a pneumonia vaccine?: Yes *Have you received a flu vaccine this season?: Yes Other Medical History: Reports: Anemia, Liver Disease (Cirrhosis from hepatitis C) Anesthesia experience/problems:: none Laterality Cases: Left: Total Hip Replacement Other Surgeries: Yes: Hernia Repair. No: Pacemaker Amputation: No Fractures: Yes (BOTH LEGS; RT RADIAL, LT ULNA, NOSE, JAW, TED:BLE 2INCHES SHORTER AFTER F) - *Social History Educational Level: Attended College Smoking Status: Former smoker Tobacco Type: cigarettes # Packs/Day (cigarettes): 1 #Yrs smoked (if former smoker): 50 Alcohol Intake: current Alcohol Intake Frequency:: a few times a month Substance Use Type: marijuana *Occupational Status:: retired Housing: house *Travel in the last 8 weeks: None Family Hx:: Unable to obtain
--- NOTE | 2019-09-05 12:26 | PC.NURSE ---
notified pcp to verify if he wanted pt to have 1 unit of prbc's of 2. pcp wants 2 units given.
[2019-09-05 12:32] LABS: Mononuclear WBCs,Body Fluid 95 %; Polynuclear WBC,Body Fluid 5 %
--- NOTE | 2019-09-05 14:05 | SW/DCPLANNER ---
Addendum entered by Nguyen Whittington 09/08/19 11:37: PATIENT HAS A DISCHARGE ORDER IN AND DR GRAYSON HAS TALKED WITH PATIENT ABOUT HOSPICE SERVICES: HE STATED HE WANTS TO THINK ABOUT IT, STATING HE DOESN'T KNOW WHAT THEY DO.... WILL SPEAK WITH HIM AND IF INTERESTED IN HOSPICE I WILL SEND THE REFERRAL... Original Note: WENT BACK TO SEE PATIENT REGARDING DISCHARGE PLANNING: PATIENTS DAUGHTER THINKS HE NEEDS TO GO SOMEWHERE FOR A SHORT AMOUNT OF TIME TO GET STRONGER BUT PATIENT STATED HE WAS GOING HOME...HE IS ALERT AND ORIENTED AND HE IS ADAMANT THAT HE WANTS TO GO HOME AND IS NOT GOING ANYWHERE... HE TOLD ME AND THE NURSE THAT HE HAS SOMEONE THAT LIVES NEXT TO HIM AND CHECKS ON HIM AND PROVIDES HIS MEALS FOR HIM....IF SOMETHING SHOULD CHANGE I WILL ASSIST INDICATED BY PATIENT AND MD...
--- NOTE | 2019-09-05 17:59 | PC.NURSE ---
PT IS RESTING IN BED. ALERT AND ORIENTED X4. CARE MANAGEMENT CAME TO DISCUSS DISCHARGE PLANNING WITH PT TODAY AND HE STATED HE WAS GOING HOME WHEN HE LEFT THE HOSPITAL AND HIS NEIGHBOR WOULD MAKE SURE HE WAS TAKEN CARE OF. PT DID NOT WANT TO DISCUSS ANYTHING ABOUT GOING TO REHAB. IT TOOK 2 ASSIST TO GET PT OOB THIS SHIFT. PT IS VERY UNSTEADY ON HIS FEET. PT STATES AT HOME HE USUALLY AMBULATES WITH A WALKER AND DOES NOT HAVE ANY ISSUES AND HIS HOME IS SET UP WELL ENOUGH FOR HIM TO GET AROUND W/O ANY PROBLEMS. LUNG SOUNDS CLEAR. BOWEL SOUNDS NORMAL. ABDOMEN IS DISTENDED/MILD TENDERNESS RUQ. PT TOLERATED 2 UNITS OF PRBC'S. VSS. STATED DIET COULD BE ADVANCED TOLERATED. PT TOLERATED CLEARS AND VANILLA ENSURE THIS SHIFT. WILL CONTINUE TO MONITOR.
--- NOTE | 2019-09-05 19:10 | PC.NURSE ---
report given to ty
[2019-09-05 19:12] LABS: Hematocrit 33.7 % (42.0-52.0)
[2019-09-05 19:17] LABS: Hemoglobin 11.7 g/dL (14.1-18.0)
[2019-09-06] VITALS (13 sets, daily range): BP systolic 110–135; BP diastolic 54–72; PULSE 64–145; RESP 14–20; TEMP 36.7–37.2; O2SAT 96–100; BMI 15.8
--- NOTE | 2019-09-06 00:02 | PC.NURSE ---
nurse made aware of heart rate
--- NOTE | 2019-09-06 00:15 | ECG_ITS ---
APPROVED REPORT Exam: Resting ECG HR:145 bpm ECG Measurements Heart Rate 145 AXES QRSd 54 QRS 80 QT 322 T 242 QTc 500 <Conclusion> Atrial fibrillation with rapid ventricular response with premature ventricular or aberrantly conducted complexes Low voltage QRS ST & T wave abnormality, consider inferior ischemia or digitalis effect ST & T wave abnormality, consider anterior ischemia or digitalis effect Abnormal ECG Electronically signed by : Jung Hayes, 09/06/2019 16:35:59
--- NOTE | 2019-09-06 03:41 | PC.NURSE ---
vitals were taken by nurse and I was instructed by nurse to but both blood pressures in at these times
[2019-09-06 05:06] LABS: Microscopic, Urine URINE MICROSCOPIC (MICROSCOPIC)
[2019-09-06 05:08] LABS: Appearance,Urine CLEAR (Clear); Bilirubin,Urine Negative (Negative); Blood, Urine 2+ (Negative); Color,Urine ORANGE (Yellow); Glucose,Urine (UA) Negative (Negative); Ketones,Urine TRACE (Negative); Leukocyte Esterase,Urine Negative (Negative); Nitrate,Urine Negative (Negative); Protein,Urine Negative (Negative); Specific Gravity, Urine 1.025 (1.005-1.030)
[2019-09-06 05:16] LABS: Bacteria,Urine 1+ /lpf; RBC,Urine 20-50 #/hpf (0-3)
--- NOTE | 2019-09-06 06:17 | PC.NURSE ---
Pt began shift A&O to person,place,and situation but unsure of the year. Pt had c/o nausea and was medicated per MAR w/ zofran. No relief noted when reassessed and pt began to vomit yellow,green bile soon after. Abdomen is firm, distended, and tender to touch. 2041- paged and orders received for phenergan which relieved symptoms (see provider notification). 2322- Lab reporte positive blood cultures- gram positive cocci in chains (anaerobic culture). paged and made aware. New orders for ceftriaxone (see provider notification). 14- SRNA reported HR of 152 during vitals 0000 assessment. This RN assessed radial pulse of 115 and irregular. Stat EKG preformed and ED MD verified AFIB w/ RVR. paged and new orders received for IV metoprolol (see notification). Pt reassessed after metoprolol push and HR 84, remains irregular. No complaints stated from pt. 306- During 299 care rounds this RN noticed pt had vomited bright red emesis. Pt was bathed and changed at this time. 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 Vitals assessed. surgical supervisor and charge nurse in room. New #22g IV access to left forearm. paged once again and gave orders to increase fluid infusion to 100ml/hr and have 2 units of PRBC on hold for possible infusion. made aware of no urine output since quiroga removed at 1800 and orders to insert new quiroga given. 250ml of orange, strong smelling urine draining and sample sent to lab. Zofran given for c/o nausea and pt belching. Bed alarm on for pt safety. Will continue to monitor. No emesis since 299. Pt is incontinent and has had multiple small BM's this shift, black in color.
[2019-09-06 06:48] LABS: Basophils % 0.1 % (0.1-2.0); Eosinophils # 0.1 K/mm3 (0.0-0.4); Eosinophils % 0.5 % (0.1-12.0); Hematocrit 29.4 % (42.0-52.0); Lymphocytes # 0.4 K/mm3 (0.7-4.5); Lymphocytes % 3.3 % (10-50); Mean Corpuscular HGB Conc 35.5 g/dL (31.8-35.4); Mean Corpuscular Hemoglobin 31.4 pg (27.0-31.2); Mean Corpuscular Volume 88.5 fl (80-94); Monocytes # 0.8 K/mm3 (0.1-1.0); Monocytes % 6.8 % (1.7-9.3); Neutrophils # 10.4 K/mm3 (1.8-7.8); Neutrophils % 89.4 % (37.0-80.0); Platelet Count 147 K/mm3 (142-424); Red Blood Count 3.32 M/mm3 (4.60-6.20); Red Cell Distribution Width 20.3 % (11.5-17.5); White Blood Count 11.6 K/mm3 (4.8-10.8)
[2019-09-06 06:52] LABS: Ammonia 141 umol/L (9-30)
[2019-09-06 06:56] LABS: MANUAL DIFFERENTIAL MANUAL DIFFERENTIAL (MANUAL DIFF)
[2019-09-06 07:11] LABS: Hemoglobin 10.4 g/dL (14.1-18.0)
--- NOTE | 2019-09-06 07:15 | XR_ITS ---
PROCEDURE: XR CHEST PORTABLE CLINICAL HISTORY: shortness of breath, mental status change NG tube placement COMPARISON: XR CHEST PORTABLE from 04/21/2019 XR CHEST PORTABLE from 07/22/2019 CT ABDOMEN PELVIS W CON from 09/04/2019 XR CHEST PORTABLE from 09/04/2019 FINDINGS: Nasogastric tube is present. The tip is in the region of the body of the stomach. There is some distention of the esophagus which is air-filled. Patchy infiltrate is noted in the right lower lobe. There is a small right effusion. Left lung is clear. No acute bony abnormalities. IMPRESSION: NG tube present in the body of the stomach with patchy infiltrate and small effusion on the right Dictated by: Prasanth Alvarado MD 09/06/2019 09:27 Electronically signed by Prasanth Alvarado MD in [place] 09/06/2019 09:27
--- NOTE | 2019-09-06 07:18 | HMH.ACPN2 ---
Internal Medicine - PN: Da *Date: 09/06/19 *Time: 07:18 Interval history: Patient is laying in bed this morning. He appears in no distress but is unable to answer questions. He does at least confirm he is not in pain but otherwise is minimally interactive. Patient underwent EGD yesterday which showed no esophageal varices but some esophageal erosions and some duodenitis. Patient was continued on a PPI. Patient also had a paracentesis to remove 2300 mL's of fluid from his abdominal cavity. Exam Vital signs and Labs for Last 24 Hours: Temp Pulse Resp BP Pulse Ox 98.9 F 90 18 110/70 98 09/06/19 03:10 09/06/19 03:10 09/06/19 03:10 09/06/19 03:10 09/06/19 03:10 Laboratory Results - last 24 hr 09/05/19 06:09: Sodium 135 L, Potassium 3.9, Chloride 113 H, Carbon Dioxide 23, Anion Gap 2.9 L, BUN 20, Creatinine 0.80, Estimated Creat Clear 49, Estimated GFR 96, Est GFR ( Amer) 116, Glucose 88, Calcium 8.0 L, Magnesium 1.7, Total Bilirubin 2.0 H, AST 31, ALT 14, Alkaline Phosphatase 103, Lactate Dehydrogenase 209 L, Total Protein 7.0, Albumin 2.3 L D, Globulin 4.7 H, Albumin/Globulin Ratio 0.5 L 09/05/19 07:40: Blood Type O Negative, Antibody Screen Negative, Crossmatch (AHG) See Detail 09/05/19 10:30: Fluid Source Paracentesis fluid, Fluid Volume 2360, Fluid Appearance Normal, Fluid RBC (Auto) < 10, Fld Tot Nucleated Cell 104, Fld Polynuclear WBCs % 5, Fld Mononuclear WBCs % 95 09/05/19 18:49: Hgb 11.7 L D, Hct 33.7 L 09/06/19 03:45: Urine Color [place], Urine Appearance Clear, Urine pH 6.0, Ur Specific [place] 1.025, Urine Protein Negative, Urine Glucose (UA) Negative, Urine Ketones Trace, Urine Blood 2+, Urine Nitrate Negative, Urine Bilirubin Negative, Urine Urobilinogen 1.0, Ur Leukocyte Esterase Negative, Urine RBC 20-50, Urine WBC 3-5, Urine Bacteria 1+ 09/06/19 06:30: WBC 11.6 H D, RBC 3.32 L D, Hgb 10.4 L D, Hct 29.4 L, MCV 88.5, MCH 31.4 H, MCHC 35.5 H, RDW 20.3 H, Plt Count 147, MPV 9.0, Neut % (Auto) 89.4 H, Lymph % (Auto) 3.3 L, [place] % (Auto) 6.8, Eos % (Auto) 0.5, Baso % (Auto) 0.1, Neut # (Auto) 10.4 H, Lymph # (Auto) 0.4 L, [place] # (Auto) 0.8, Eos # (Auto) 0.1, Baso # (Auto) 0.0 09/06/19 06:30: Ammonia 141 H I & O for Last 24 hours: Intake & Output 09/03/19 09/04/19 09/05/19 09/06/19 11:59 11:59 11:59 11:59 Intake Total 1999 / 1999 2478 / 2478 Output Total 400 / 400 400 / 400 Balance 1600 / 1600 2077 / 2078 Weight 108 lb 0.988 oz 104 lb 9 oz Microbiology Reports for the Last 24 Hours: Microbiology 09/04/19 20:32 Throat Group A Streptococcus Screen ([facility]AL[facility]) - Final Negative for Group A Streptococcus. 09/04/19 20:26 Blood Blood Culture - Preliminary 09/05/19 10:30 Ascites Fluid Gram Stain - Final Narrative: Patient is laying on his right side in the bed. He has an unfocused gaze. Oropharynx is dry. Lungs sound clear although aeration is poor and inspiratory effort is poor. Heart has an irregular rate and rhythm. Abdomen is soft with mild distention from his ascites. Lower extremities have no edema. Assessment and Plan (1) Hepatic encephalopathy Current visit: Yes Status: Acute Category: Medical Code(s): K72.90 - Hepatic failure, unspecified without coma Place NG tube and begin hourly lactulose until patient has 2-3 stools. (2) Cirrhosis of liver with ascites Current visit: Yes Status: Acute Qualifiers: Hepatic cirrhosis type: unspecified hepatic cirrhosis Qualified Code(s): K74.60 - Unspecified cirrhosis of liver; R18.8 - Other ascites Category: Medical Code(s): K74.60 - Unspecified cirrhosis of liver; R18.8 - Other ascites (3) Upper GI bleed Current visit: Yes Status: Acute Category: Medical Code(s): K92.2 - Gastrointestinal hemorrhage, unspecified Continue oral Protonix (4) Anemia Current visit: No Status: Acute Qualifiers: Qualified Code(s): D64.9 - Anemia, unspecified Category:
[2019-09-06 08:21] LABS: Lymphocytes % 3 % (10-50); Monocytes % 7 % (2-9); Neutrophils % 90 % (42-76); Platelet Estimate Normal; RBC Morphology Normal; Total Cells Counted 100
[2019-09-06 09:52] LABS: INR 1.63 (0.9-1.1); Prothrombin Time 16.6 seconds (9.4-11.8)
[2019-09-06 15:14] LABS: Hematocrit 30.4 % (42.0-52.0); Hemoglobin 10.6 g/dL (14.1-18.0)
[2019-09-06 15:23] LABS: Albumin, Body Fluid <0.2 g/dL (Not Estab.); Glucose, Body Fluid 86 mg/dL (.); LD, Body Fluid 35 IU/L (.); Protein, Body Fluid 0.7 g/dL (.)
--- NOTE | 2019-09-06 16:04 | PC.NURSE ---
Pt has been non-verbal this shift and does not follow commands. 16 F NG tube inserted this AM to the RT nare and noted to be at 58 . PO medications have been given via NG tube this shift. 150 ML of bloody emesis thus far. Zofran given per MAR with favorable results. Oral care Q2H and frequent suctioning due to NPO status. Pt has been turned/repositioned Q2H this shift to prevent skin breakdown. Bed alarm in place to prevent falling. 3 loose and bloody BM's thus far this shift. Abdomen remains firm and distended. Telemetry reveals A-fib with frequent PVC's. 22G peripheral IV in the LT forearm is infusing NS @ 100 ML/HR. 22G peripheral IV in the RT AC is SL. F/C is draining dark, yellow urine at bedside and free from knots/kinks. Urine output thus far this shift is 200 ML. Call light within reach. Will continue to monitor.
[2019-09-07] VITALS (7 sets, daily range): BP systolic 100–126; BP diastolic 42–69; PULSE 40–111; RESP 15–18; TEMP 36.6–37; O2SAT 95–99; BMI 15.8
--- NOTE | 2019-09-07 05:16 | PC.NURSE ---
At the beginning of the shift, pt was drowsy only opening eyes briefly with verbal stimulation then pt closed eyes quickly again. Pt did not use any speech util he needed his brief and linens change ~ 2300 on 09/06/19. Pt was much more awake and offered clear speech although pt was confused and very agitated with staff. Pt shouted Give me my pizza and wallet , when asked pt where did he think he was pt responded with [employer] and yall better quit playing games . Pt shouted that he will marin you for everything you got, you hogs leave me alone . Pt has been cursing at staff regularly with each interaction since this occasion. Pt attempted to hit staff and pull on his NG and IV lines requires mitts to be placed on both hands but this RN was able to remove both mitts @ 0300 with pt resting quietly. Pt is very weak and can not assist with turning, pt attempted to hold call light and turn the TV channel however he was not able to hold it up and staff assisted pt with finding the morning news station. Pt is more calm, although still confused at this time. Pt does report he is in the hospital however reports I have been here for weeks and its time for you to get me out of here and to . I want to go to . Pt reports the yr is 1999, pt will not answer when asked of city/month/president. Pt's daughter called near the beginning of the shift ad given update on pt at that time, pt's daughter reports she will be arriving to see pt today 09/06 but does not have an exact ETA. Pt informed of daughter arrival today but does not offer and response to this. Pt has denied any pain or nausea/vomiting this shift. Pt has had 2 BMs this shift, dark red/tarry. NG in place to right nare with 58 @ nare. Gastric residual assessed and was 5ml at this time, with 2 brownish/red clots. TEDS in place to BLE. no edema noted. ABD is distended and hyperactive, tender with palpation. Patent quiroga in place, draining dark raul/orangish urine to gravity. Pt has had poor output this shift with only 100ml thus far. Bed alarm in use for safety d/t confusion. VSS, call light within reach, will continue to monitor.
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
--- NOTE | 2019-09-07 07:54 | HMH.ACPN2 ---
Internal Medicine - PN: Subj *Date: 09/07/19 *Time: 07:54 Interval history: Patient is aggravated this morning. He is awake and oriented to person and place. He is refusing to have any lab draws. He is requesting discharged home stating there is nothing wrong with me . When questioned about the events of the last few days patient still does not have answers as to what led to him arriving at the hospital. He makes threats about calling his business attorney. He denies pain. He admits he is hungry. Nursing staff reports no vomiting overnight. Patient's NG tube was removed while I was in the room as it had become dislodged. Patient did admit he had stopped taking his medications. Exam Vital signs and Labs for Last 24 Hours: Temp Pulse Resp BP Pulse Ox 98.0 F 80 15 111/42 L 96 09/07/19 04:00 09/07/19 04:00 09/07/19 04:00 09/07/19 04:00 09/07/19 04:00 Laboratory Results - last 24 hr 09/05/19 10:30: Fluid Glucose 86, Fluid Total Protein 0.7, Fluid Albumin <0.2, Fluid LDH 35 09/06/19 06:30: Total Counted 100, Neutrophils % (Manual) 90 H, Lymphocytes % (Manual) 3 L, Monocytes % (Manual) 7, Platelet Estimate Normal, RBC Morphology Normal 09/06/19 06:30: PT 16.6 H, INR 1.63 H 09/06/19 15:05: Hgb 10.6 L, Hct 30.4 L I & O for Last 24 hours: Intake & Output 09/04/19 09/05/19 09/06/19 09/07/19 11:59 11:59 11:59 11:59 Intake Total 1999 / 1999 2478 / 2478 2288 / 2288 Output Total 400 / 400 400 / 400 600 / 600 Balance 1600 / 1600 2078 / 2078 1688 / 1688 Weight 108 lb 0.988 oz 104 lb 9 oz 104 lb 9.009 oz Microbiology Reports for the Last 24 Hours: Microbiology 09/04/19 20:26 Blood Blood Culture - Preliminary 09/04/19 20:26 Blood Blood Culture - Preliminary NO GROWTH AFTER 48 HOURS 09/05/19 10:30 Ascites Fluid Gram Stain - Final 09/05/19 10:30 Ascites Fluid Body Fluid Culture - Preliminary NO GROWTH AFTER 24 HOURS 09/04/19 20:32 Throat Group A Streptococcus Screen ([facility]ALANI) - Final Negative for Group A Streptococcus. Narrative: Patient is in no distress and in contrast to yesterday is awake and alert and visibly upset. Oropharynx is moist. Lungs are clear. Heart rate is irregular. Abdomen is protuberant from ascites. Lower extremities have no edema. Assessment and Plan (1) Hepatic encephalopathy Current visit: Yes Status: Acute Category: Medical Code(s): K72.90 - Hepatic failure, unspecified without coma (2) Cirrhosis of liver with ascites Current visit: Yes Status: Acute Qualifiers: Hepatic cirrhosis type: unspecified hepatic cirrhosis Qualified Code(s): K74.60 - Unspecified cirrhosis of liver; R18.8 - Other ascites Category: Medical Code(s): K74.60 - Unspecified cirrhosis of liver; R18.8 - Other ascites (3) Upper GI bleed Current visit: Yes Status: Acute Category: Medical Code(s): K92.2 - Gastrointestinal hemorrhage, unspecified (4) Anemia Current visit: No Status: Acute Qualifiers: Qualified Code(s): D64.9 - Anemia, unspecified Category: Medical Code(s): D64.9 - Anemia, unspecified (5) Leukocytosis Current visit: Yes Status: Acute Category: Medical Code(s): D72.829 - Elevated white blood cell count, unspecified (6) Esophageal erosions Current visit: Yes Status: Acute Category: Medical Code(s): K22.10 - Ulcer of esophagus without bleeding (7) Duodenitis with bleeding Current visit: Yes Status: Acute Category: Medical Code(s): K29.81 - Duodenitis with bleeding - Assessment and plan all Dx Assessment and Plan for all problems:: 1. DC Sparks catheter, IV fluids, telemetry monitoring 2. On reassessment patient was more agreeable to having labs drawn and is willing to do what ever it takes to get out of this place . 3. Continue lactulose. 4. In regards to the patient's disposition I do not believe he is capable o
[2019-09-07 09:40] LABS: Basophils % 0.3 % (0.1-2.0); Eosinophils # 0.3 K/mm3 (0.0-0.4); Eosinophils % 2.6 % (0.1-12.0); Hematocrit 31.4 % (42.0-52.0); Hemoglobin 10.6 g/dL (14.1-18.0); Lymphocytes % 9.9 % (10-50); Mean Corpuscular HGB Conc 33.9 g/dL (31.8-35.4); Mean Corpuscular Hemoglobin 30.6 pg (27.0-31.2); Mean Corpuscular Volume 90.4 fl (80-94); Mean Platelet Volume 8.7 fl (7.4-10.4); Monocytes # 0.7 K/mm3 (0.1-1.0); Monocytes % 6.6 % (1.7-9.3); Neutrophils # 8.1 K/mm3 (1.8-7.8); Neutrophils % 80.6 % (37.0-80.0); Platelet Count 197 K/mm3 (142-424); Red Blood Count 3.47 M/mm3 (4.60-6.20); Red Cell Distribution Width 20.2 % (11.5-17.5)
[2019-09-07 09:41] LABS: INR 1.59 (0.9-1.1); Prothrombin Time 16.2 seconds (9.4-11.8)
[2019-09-07 09:42] LABS: Ammonia < 9 umol/L (9-30)
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
--- NOTE | 2019-09-07 11:25 | DIET.NUTRFU ---
Pt to advance to full liquid today with protein supplements, will monitor toleration. Weight is down 3.5#.
--- NOTE | 2019-09-07 16:34 | PC.NURSE ---
Pt has been somewhat cooperative this shift and is A&O to person. NG tube D/C'd this shift. F/C D/C'd this shift. IV fluids D/C'd this shift. Telemetry D/C'd this shift. Pt has been taking PO medications whole, without difficulty. Pt has been turning/repositioning independently this shift. Pt has been educated regarding call light use and bed alarm is in place to prevent falling. Diet was advanced to regular/vegetarian and pt has tolerated well. 1 loose and dark/tarry BM thus far this shift. Pt has been incontinent of bowel/bladder and a brief is in place. Abdomen remains firm and distended. 22G peripheral IV in the LT forearm is patent with no s/s of infiltration. 22G peripheral IV in the RT AC is also patent with no s/s of infiltration. VSS. Call light within reach. Will continue to monitor.
--- NOTE | 2019-09-07 19:09 | INFXCTL.NOTE ---
report given to efren
[2019-09-08 04:00] VITALS: BP 103/71; PULSE 60; RESP 18; TEMP 36.3; O2SAT 96
[2019-09-08 05:00] VITALS: BMI 17.7
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
--- NOTE | 2019-09-08 06:57 | PC.NURSE ---
PT REFUSED BLOOD WQRK AT 0630.
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
--- NOTE | 2019-09-08 07:10 | HMH.DCSUM ---
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 The exact circumstances under which he made it to the emergency department are unclear. It is believed a neighbor found the patient in a disheveled state and called EMS. In the emergency department patient was evaluated. He is weak and cachectic appearing. He was noted to have abdominal distention consistent with ascites. While he has known cirrhosis he has no history of encephalopathy or esophageal varices. Patient was found to have an elevated ammonia level of 80 and while in the emergency department had a single episode of hematemesis. This morning the patient reports he has been vomiting although he cannot give specifics in regards to when his vomiting began and how frequently he is vomiting. He reports normal stools at this time. He denies fevers or chills. Patient was admitted for anticipated paracentesis and suspected upper GI bleed. Patient was admitted on Protonix drip. Patient does not recall ever having ultrasound-guided paracentesis performed for ascites. Patient was hospitalized approximately 6 weeks ago and at discharge was placed on propranolol and spironolactone which were his home medications. Patient states he has not been taking these medications. Hospital Course Hospital Course: Patient was admitted for decompensated cirrhosis with hepatic encephalopathy. This is the patient's first admission for hepatic encephalopathy. Patient was admitted and given rectal lactulose. The following morning on September 04 patient underwent ultrasound-guided paracentesis with removal of 2 L of ascitic fluid which was sent for testing including cell count, culture. Culture returned negative. Patient was started on empiric antibiotics for SBP. Dr. Ramos of the GI service was consulted and because of the patient's hematemesis he underwent an EGD. EGD revealed esophageal erosions and duodenitis. Patient has been admitted on a Protonix drip. This was transitioned to oral Protonix. On the morning of my second patient had continued to have vomiting and ammonia had risen from 80-140. Patient remained encephalopathic and NG tube was placed for administration of lactulose. Patient was given lactulose 20 g hourly until he began producing stools. Once patient had 3 soft stools lactulose was transitioned to 4 times per day. By the following morning (September 06) patient had become awake and alert and combative. NG tube was removed. Physical therapy was consulted. Upon their evaluation they recommended rehabilitation through snf facility and/or possible placement due to the patient's level of weakness. Patient however refused any of these options and desired return to home. Patient was observed for an additional 24 hours. He was able to tolerate full liquid and then a regular diet. Patient is a vegetarian. Patient's abdomen remained distended with ascitic fluid but he refused further paracentesis. During patient's hospitalization his daughter was given updates daily. This is his closest living relative. Patient does not have a living will. His cirrhosis would make him a candidate for hospice and patient wants to think about this . On September 07 repeat labs... Objective Vital signs: Temp Pulse Resp BP Pulse Ox 97.3 F L 60 18 103/71 L 96 09/08/19 04:00 09/08/19 04:00 09/08/19 04:00 09/08/19 04:00 09/08/19 04:00 Results Labs on day of discharge: Labs from last 24 hours 09/07/19 09/07/19 09/07/19 09:15 09:15 09:15 WBC 10.0 RBC 3.47 L Hgb 10.6 L Hct 31.4 L MCV 90.4 MCH 30.6 MCHC 33.9 RDW 20.2 H Plt Count 197 D MPV 8.7 Neut % (Auto) 80.6 H Lymph % (Auto) 9.9 L [place] % (Auto) 6.6 Eos % (Auto) 2.6 Baso % (Auto) 0.3 Neut #
[2019-09-08 07:30] VITALS: BP 112/82; PULSE 93; RESP 18; TEMP 36.7; O2SAT 96
[2019-09-08 07:49] LABS: Basophils % 0.5 % (0.1-2.0); Chloride 112 mmol/L (98-107); Eosinophils # 0.5 K/mm3 (0.0-0.4); Eosinophils % 6.6 % (0.1-12.0); Hematocrit 30.4 % (42.0-52.0); Hemoglobin 10.4 g/dL (14.1-18.0); Lymphocytes % 14.3 % (10-50); Mean Corpuscular HGB Conc 34.2 g/dL (31.8-35.4); Mean Corpuscular Hemoglobin 31.1 pg (27.0-31.2); Mean Corpuscular Volume 90.9 fl (80-94); Mean Platelet Volume 8.8 fl (7.4-10.4); Monocytes # 0.5 K/mm3 (0.1-1.0); Monocytes % 6.6 % (1.7-9.3); Neutrophils # 5.2 K/mm3 (1.8-7.8); Platelet Count 124 K/mm3 (142-424); Potassium 3.3 mmoL/L (3.5-5.1); Red Blood Count 3.34 M/mm3 (4.60-6.20); Red Cell Distribution Width 20.8 % (11.5-17.5); Sodium 138 mmol/L (136-145); White Blood Count 7.2 K/mm3 (4.8-10.8)
[2019-09-08 07:52] LABS: Ammonia < 9 umol/L (9-30); Anion Gap 6.3 mEq/L (5-15); Blood Urea Nitrogen 20 mg/dl (9-20); Calcium 8.3 mg/dl (8.4-10.2); Carbon Dioxide 23 mmol/L (22.0-30.0); Creatinine Clearance Estimated 48 mL/min (50-200); Estimated Glomerular Filt Rate 67 ml/min (>60); GFR (African American) 81 ML/MIN (>60); Glucose 93 mg/dl (74-100)
[2019-09-08 07:56] LABS: INR 1.52 (0.9-1.1); Prothrombin Time 15.5 seconds (9.4-11.8)
[2019-09-08 11:20] VITALS: BP 110/80; PULSE 90; RESP 18; TEMP 36.7
== END 2019-09-08 13:45 | disposition home or self-care (01) | DRG 441 ==
LOC: ER 19:57 → 2ND 22:57
PROVIDERS: Internal Medicine Adolescent Medicine; Internal Medicine Gastroenterology; Admitting Provider Family Medicine; Emergency Provider Emergency Medicine; PCP Family Medicine; Visit Provider Family Medicine
PROC: 0DJ08ZZ Inspection of Upper Intestinal Tract, Via Natural or Artificial Opening Endoscopic (ICD-10-PCS; CPT 43235; principal; 2019-09-05 12:00)
DX: K72.90 Hepatic failure, unspecified without coma (principal); K29.81 Duodenitis with bleeding; R18.8 Other ascites; R64 Cachexia; Z68.1 Body mass index [BMI] 19.9 or less, adult; K74.60 Unspecified cirrhosis of liver; D64.9 Anemia, unspecified; I48.91 Unspecified atrial fibrillation; B18.2 Chronic viral hepatitis C; K21.0 Gastro-esophageal reflux disease with esophagitis; K44.9 Diaphragmatic hernia without obstruction or gangrene
CPT/HCPCS: 43239; 49083; 36415; 70450; 71045; 74177; 80048; 80053; 81001; 82042; 82140; 82150; 82272; 82945; 83605; 83615; 83690; 83735; 84155; 84484; 85007; 85014; 85018; 85025; 85610; 86850; 87040; 87070; 87077; 87186; 87205; 87275; 87276; 87430; 88305; 89051; 93005; 96365; 96367; 96375; 96376; 97116; 97162; 97530; 99285; G0328; J2405; P9016

== ENCOUNTER 2019-10-25 08:42 | Observation (INO) | payer MEDICARE, SELFPAY ==
[2019-10-25] VITALS (14 sets, daily range): BP systolic 80–126; BP diastolic 60–80; PULSE 60–125; RESP 9–18; TEMP 36.4–36.8; O2SAT 94–99; BMI 16.1; BMI 16.8
--- NOTE | 2019-10-25 08:48 | CT_ITS ---
PROCEDURE: CT CERVICAL SPINE WO CON CLINICAL INDICATION: shoulder pain fall Posttraumatic pain following injury, Neck injury with pain, contusion/abrasion or hematoma, cervical sprain/strain the COMPARISON: CT CERVICAL SPINE WO CON from 04/21/2019 TECHNIQUE: Axial images obtained with sagittal and coronal reformats. All CT scans at the facility use one or more dose reduction, viz: automated exposure control, ma/kV adjustment per patient size (including targeted exams where dose is matched to indication, i.e. head), or iterative reconstruction technique. Axial spiral CT scanning performed of the cervical spine beginning at the base of the skull and continuing to the upper T-spine. 3-D multiplanar reconstruction with 3-D manipulation of volumetric data set in image rendering was completed by the radiologist and/or technologist with the supervision of the radiologist on independent workstation. FINDINGS: No fracture or dislocation. There is reversal of the cervical lordosis 3 mm anterolisthesis C2 on C3. Degenerative disc disease C3-C4 with bilateral foraminal narrowing and canal stenosis. Degenerative disc disease C4-C5 with endplate hypertrophic change and bilateral foraminal narrowing Degenerative disc disease C5-C6 with bilateral foraminal narrowing. Cervical curvature convex right. Paraseptal emphysematous changes in the lung apices IMPRESSION: Degenerative changes, no significant change with no acute fracture. Dictated by: Prasanth Alvarado MD 10/25/2019 09:59 Electronically signed by Prasanth Alvarado MD in [place] 10/25/2019 09:59
--- NOTE | 2019-10-25 08:49 | CT_ITS ---
PROCEDURE: CT HEAD/BRAIN WO CON CLINICAL INDICATION: los Head injury with headache/pain, contusion, abrasion or hematoma COMPARISON: HEADWO CT head/brain wo con from 11/05/[address] head/brain wo con from 11/18/2017 CT HEAD/BRAIN WO CON from 09/04/2019 TECHNIQUE: Axial images obtained. All CT scans at the facility use one or more dose reduction, viz: automated exposure control, ma/kV adjustment per patient size (including targeted exams where dose is matched to indication, i.e. head), or iterative reconstruction technique. FINDINGS: No midline shift, mass effect, intracranial hemorrhage, hydrocephalus, or extra-axial fluid collection is evident. There is generalized atrophy with hypoattenuation of the periventricular white matter consistent with microangiopathic changes.. There is chronic thinning the skull in the right parietal region. Going on IMPRESSION: No acute intracranial finding Dictated by: Prasanth Alvarado MD 10/25/2019 09:56 Electronically signed by Prasanth Alvarado MD in [place] 10/25/2019 09:56
--- NOTE | 2019-10-25 08:50 | CT_ITS ---
PROCEDURE: CT HIP RT WO CON CLINICAL HISTORY: fracture of hip Pain following injury COMPARISON: CT ABDOMEN PELVIS W CON from 09/04/2019 TECHNIQUE: Axial images obtained with sagittal and coronal reformats. All CT scans at the facility use one or more dose reduction, viz: automated exposure control, ma/kV adjustment per patient size (including targeted exams where dose is matched to indication, i.e. head), or iterative reconstruction technique. FINDINGS: An old fracture of the proximal to mid shaft of the right femur with an intramedullary cheyanne track and dystrophic calcification on the posterior aspect of the femoral neck. Cerclage wires are present at the proximal to mid shaft of the femur with scattered sclerotic and lucent areas from the previous fracture no acute femur fracture is evident. There is generalized osteopenia. There is a nondisplaced fracture of the inferior pubic ramus which appears acute. Incidental note is made abdominal ascites IMPRESSION: 1. Nondisplaced right inferior pubic ramus fracture comminuted 2. No evidence of femoral neck fracture. 3. Old proximal femoral shaft fracture Dictated by: Prasanth Alvarado MD 10/25/2019 10:03 Electronically signed by Prasanth Alvarado MD in [place] 10/25/2019 10:03
--- NOTE | 2019-10-25 08:50 | PC.NURSE ---
EMS reported that per friend of pt that found pt this morning pt takes propranonlol and a diuretic. When asked pt about medications he takes pt states he does not take any medications. Pt was asked about propranolol and fluid medications as per reported of his friend, pt states oh I stopped taking those that's just money out the door, I don't need them. Pt also reported he had not had any previous surgeries, pt noted to have a long scar on his abd, pt asked about his scar, pt states oh I had a hernia fixed. Pt is alert, oriented x3 when asked orientation questions but has variations in health history when asked about it. ER aware.
--- NOTE | 2019-10-25 08:58 | XR_ITS ---
PROCEDURE: XR SHOULDER RT MIN 2V CLINICAL INDICATION: fall Posttraumatic pain COMPARISON: SHOULDCMRT XR shoulder RT min 2V from 11/05/2017 FINDINGS: Old right distal clavicular fracture. No acute fracture or dislocation. Unremarkable AC joint and glenohumeral joint. IMPRESSION: Old right distal clavicular fracture Dictated by: Prasanth Alvarado MD 10/25/2019 09:40 Electronically signed by Prasanth Alvarado MD in [place] 10/25/2019 09:40
--- NOTE | 2019-10-25 08:58 | XR_ITS ---
PROCEDURE: XR CLAVICLE RT CLINICAL INDICATION: fall PAIN FOLLOWING INJURY COMPARISON: CT CERVICAL SPINE WO CON from 04/21/2019 XR CHEST PORTABLE from 07/22/2019 XR CHEST PORTABLE from 09/04/2019 XR CHEST PORTABLE from 09/06/2019 FINDINGS: THERE IS AN OLD DISTAL CLAVICULAR FRACTURE NONDISPLACED. THERE DOES APPEAR TO BE INCOMPLETE BONY UNION. THE MEDIAL ASPECT OF THE CLAVICLE IS NOT WELL DELINEATED ON THESE IMAGES. THE AC JOINT IS UNREMARKABLE. THE HUMERAL HEAD IS LOCATED. IMPRESSION: OLD RIGHT DISTAL CLAVICULAR FRACTURE Dictated by: Prasanth Alvarado MD 10/25/2019 09:40 Electronically signed by Prasanth Alvarado MD in [place] 10/25/2019 09:40
--- NOTE | 2019-10-25 09:05 | PC.NURSE ---
PT TO CT
[2019-10-25 09:12] LABS: Chloride 105 mmol/L (98-107); Potassium 4.3 mmoL/L (3.5-5.1); Sodium 135 mmol/L (136-145)
[2019-10-25 09:15] LABS: Alanine Aminotransferase 29 U/L (12-78); Albumin Level 2.6 g/dl (3.5-5.0); Albumin/Globulin Ratio 0.5 (1.1-1.8); Alkaline Phosphatase 163 U/L (38-126); Anion Gap 7.3 mEq/L (5-15); Aspartate Amino Transferase 45 U/L (17-59); Basophils % 0.4 % (0.1-2.0); Bilirubin,Total 2.6 mg/dl (0.2-1.3); Blood Urea Nitrogen 21 mg/dl (9-20); Calcium 8.6 mg/dl (8.4-10.2); Carbon Dioxide 27 mmol/L (22.0-30.0); Creatine Kinase 71 U/L (55-170); Creatinine Clearance Estimated 45 mL/min (50-200); Eosinophils # 0.1 K/mm3 (0.0-0.4); Eosinophils % 1.4 % (0.1-12.0); Estimated Glomerular Filt Rate 96 ml/min (>60); GFR (African American) 116 ML/MIN (>60); Globulin 5.7 g/dL (1.3-3.2); Glucose 108 mg/dl (74-100); Hematocrit 25.5 % (42.0-52.0); Hemoglobin 9.1 g/dL (14.1-18.0); Lymphocytes # 0.6 K/mm3 (0.7-4.5); Lymphocytes % 9.2 % (10-50); Mean Corpuscular HGB Conc 35.6 g/dL (31.8-35.4); Mean Corpuscular Hemoglobin 34.3 pg (27.0-31.2); Mean Corpuscular Volume 96.4 fl (80-94); Mean Platelet Volume 8.2 fl (7.4-10.4); Monocytes # 0.5 K/mm3 (0.1-1.0); Monocytes % 8.2 % (1.7-9.3); Neutrophils # 5.2 K/mm3 (1.8-7.8); Neutrophils % 80.7 % (37.0-80.0); Platelet Count 156 K/mm3 (142-424); Red Blood Count 2.64 M/mm3 (4.60-6.20); Total Protein,Serum 8.3 g/dl (6.3-8.2); White Blood Count 6.4 K/mm3 (4.8-10.8)
[2019-10-25 09:20] LABS: Ammonia 36 umol/L (9-30); INR 1.36 (0.9-1.1); Prothrombin Time 13.7 seconds (9.4-11.8)
[2019-10-25 09:25] LABS: Creatine Kinase MB 0.6 ng/ml (0.0-2.03)
[2019-10-25 09:33] LABS: Troponin I < 0.01 ng/ml (0.00-0.034)
--- NOTE | 2019-10-25 10:50 | PC.NURSE ---
waiting corrections nurse back from Dr. Lopez
--- NOTE | 2019-10-25 10:55 | HMH.EDFALL ---
ED Disposition Clinical Impression: Pubic ramus fracture, Chronic liver disease, Unable to walk Disposition: Admitted as Observation Condition on Discharge: Good Instructions: How to Prevent Falls Referrals: Antony Zamora MD [Primary Care Provider] - - Critical Care Critical Care Time: No Attestation: On 10/25/19, the high probability of a clinically significant, sudden or life threatening deterioration of the following system(s) required my full and direct attention, intervention and personal management. The time I documented below is in addition to time spent performing reported procedures but includes the following listed in this critical care notation. Medical Decision Making - Medical Records Medical records reviewed: Yes: I reviewed the patient's medical records. - Fredi Inquiry Pt receiving controlled substance: No Vital Signs: 10/25/19 08:43 10/25/19 09:43 10/25/19 11:00 Temperature 97.6 F Temperature Source Oral Pulse Rate [Left Radial] 80 108 H 110 H Respiratory Rate 18 17 18 Blood Pressure [Left Arm] 125/79 119/79 105/60 L Blood Pressure Mean [Left Arm] 94 92 75 Blood Pressure Source [Left Arm] Automatic Cuff Automatic Cuff Blood Pressure Position [Left Arm] Sitting Sitting 02 Sat by Pulse Oximetry 99 96 99 Oxygen Delivery Method Room Air Room Air 10/25/19 12:26 10/25/19 12:52 10/25/19 13:28 Temperature Temperature Source Pulse Rate [Left Radial] 107 H Respiratory Rate 18 12 13 Blood Pressure [Left Arm] 113/72 126/77 113/75 Blood Pressure Mean [Left Arm] 85 93 87 Blood Pressure Source [Left Arm] Automatic Cuff Blood Pressure Position [Left Arm] Sitting 02 Sat by Pulse Oximetry 97 96 98 Oxygen Delivery Method Room Air - Lab Data Lab results reviewed: Yes: I reviewed the patient's lab results. Lab Results 10/25/19 08:50: WBC 6.4, RBC 2.64 L, Hgb 9.1 L, Hct 25.5 L, MCV 96.4 H, MCH 34.3 H, MCHC 35.6 H, RDW 22.0 H, Plt Count 156, MPV 8.2, Neut % (Auto) 80.7 H, Lymph % (Auto) 9.2 L, [place] % (Auto) 8.2, Eos % (Auto) 1.4, Baso % (Auto) 0.4, Neut # (Auto) 5.2, Lymph # (Auto) 0.6 L, [place] # (Auto) 0.5, Eos # (Auto) 0.1, Baso # (Auto) 0.0 10/25/19 08:50: PT 13.7 H, INR 1.36 H 10/25/19 08:50: Sodium 135 L, Potassium 4.3, Chloride 105, Carbon Dioxide 27, Anion Gap 7.3, BUN 21 H, Creatinine 0.80, Estimated Creat Clear 45, Estimated GFR 96, Est GFR ( Amer) 116, Glucose 108 H, Calcium 8.6, Total Bilirubin 2.6 H, AST 45, ALT 29, Alkaline Phosphatase 163 H, Total Creatine Kinase 71, CK-MB (CK-2) 0.6 D, Troponin I < 0.01, Total Protein 8.3 H, Albumin 2.6 L, Globulin 5.7 H, Albumin/Globulin Ratio 0.5 L 10/25/19 08:50: Ammonia 36 H 10/25/19 12:30: Troponin I < 0.01 Result diagrams: 10/25/19 08:50 10/25/19 08:50 Orders (Tests/Meds): ED MEDICATIONS Discontinued Medications Generic Name Dose Route Start Last Admin Trade Name Freq PRN Reason Stop Dose Admin Haloperidol Lactate 5 mg 10/25/19 13:39 Haldol 5mg/Ml Vial IM 10/25/19 13:40 ONCE ONE Hydromorphone HCl 1 mg 10/25/19 13:39 Dilaudid 2mg/Ml Syringe IV 10/25/19 13:40 ONCE ONE Morphine Sulfate 2 mg 10/25/19 09:00 10/25/19 09:01 Morphine 4mg/Ml Syringe IV 10/25/19 09:01 2 mg ONCE ONE Administration Ondansetron HCl 4 mg 10/25/19 08:58 10/25/19 09:01 Zofran 4mg/2ml Vial IV 10/25/19 08:59 4 mg ONCE ONE Administration ORDERS Category Date Time Status Troponin I Q3H Lab 10/25/19 15:00 Ordered - CT Data CT Scan: Pelvis, Other Time Received: 13:[address] Reviewed: Yes: I discussed the CT results w/the radiologist Preliminary Findings: Abnormal (Nondisplaced pubic rami fracture on the right) Medical Decision Narrative: I did consult Dr. Lopez about this patient and he recommended getting a plain film of the pelvis to make sure there is no other acute fractures and there was not. I did return the phone call to Dr. Lopez and told him that since the patient [place]
--- NOTE | 2019-10-25 10:58 | XR_ITS ---
PROCEDURE: XR PELVIS 1-2V CLINICAL INDICATION: FALL Posttraumatic pain COMPARISON: XR PELVIS 1-2V from 04/21/2019 CT ABDOMEN PELVIS W CON from 09/04/2019 CT HIP RT WO CON from 10/25/2019 TECHNIQUE: XR Pelvis AP View FINDINGS: Study is limited secondary to patient's inability to be properly positioned. There is a nondisplaced fracture involving the right inferior pubic ramus. There has been prior ORIF of the right femur with intramedullary cheyanne removal and heterotopic ossification superior to the right femoral neck. There is a gamma nail and intramedullary cheyanne in the left femur which is incompletely imaged. There does appear to be an old fracture of the left inferior pubic ramus. Osteoarthritic changes are present at the hips IMPRESSION: Limited exam with nondisplaced right inferior pubic ramus fracture and suspected old left inferior pubic ramus fracture. Please see above for detail Dictated by: Prasanth Alvardao MD 10/25/2019 12:36 Electronically signed by Prasanth Alvarado MD in [place] 10/25/2019 12:36
--- NOTE | 2019-10-25 11:00 | PC.NURSE ---
NOTIFIED RAD OF ADDITIONAL PELVIC XRAY BEING ADDED. SPOKE WITH YUNIOR.
--- NOTE | 2019-10-25 11:01 | PC.NURSE ---
RAD AT BEDSIDE AT THIS TIME.
--- NOTE | 2019-10-25 12:25 | PC.NURSE ---
contacted radiology to request that they read the pelvis xray per ER MD request. Spoke with Kimberly
[2019-10-25 13:02] LABS: Troponin I < 0.01 ng/ml (0.00-0.034)
--- NOTE | 2019-10-25 13:09 | PC.NURSE ---
notified ER that pt pelvic xray is read and in the system
--- NOTE | 2019-10-25 13:10 | PC.NURSE ---
contacted Dr. Lopez's office per ER MD request, waiting consolidator back
--- NOTE | 2019-10-25 13:12 | PC.NURSE ---
KHOI ROSE spoke with Dr. Lopez at this time
--- NOTE | 2019-10-25 13:16 | PC.NURSE ---
KHOI ROSE speaking with Dr. Zamora
--- NOTE | 2019-10-25 13:33 | PC.NURSE ---
SPOKE WITH DR GRAYSON AND THE PLAN IS TO ADMIT PT. SPOKE WITH ALEXANDRO ROJAS AND SHE ADVISED PT WILL BE AN ACUTE ADMISSION. WAITING FOR A RETURN CALL FROM [facility] WITH A BED ASSIGNMENT.
--- NOTE | 2019-10-25 13:45 | PC.NURSE ---
entered room to check on pt at this time, pt stating he is wanting to go home, advised pt ER MD has spoken with Dr. Zamora and the orthopedic Dr and they want to admit pt because r/t is not able to walk at this time r/t pubic rami fracture. Pt states I don't care I want to go home . Notified ER MD, asked ER MD to speak with pt again.
--- NOTE | 2019-10-25 13:48 | PC.NURSE ---
PT HAS FAMILY AT BEDSIDE AT THIS TIME
--- NOTE | 2019-10-25 13:52 | PC.NURSE ---
pt friend at speaking with pt. I entered room, asked pt if I could let his friend know what is going on with him, pt stated that was okay. Informed pt friend that ER MD has spoken with the orthopedic and Dr Zamora r/t pt has a pubic rami fracture. ER MD has spoken with Dr. Zamora who is agreeable to admit pt. Pt is stating he does not want to be admitted. Pt states to his friend take me home, I want to go home . Pt friend states to pt that he thinks pt should stay for admission, pt is not agreeing with his friend about admission. Notified ER of this exchange. Spoke with manager business continuity who advises to contact care management.
--- NOTE | 2019-10-25 13:55 | PC.NURSE ---
Pt friend steps out of room,(David), he reports that he and his are attempting to get POA over pt. States that pts daughter has been trying to place in a halfway in [place] but pt does not want to live in [place] or go to a halfway. Will notify care managment of this.
--- NOTE | 2019-10-25 13:56 | PC.NURSE ---
contacted care management r/t pt is refusing admission- spoke with Heidi who states is going to come down and speak with pt.
--- NOTE | 2019-10-25 14:09 | PC.NURSE ---
Heidi at BS
--- NOTE | 2019-10-25 14:34 | PC.NURSE ---
Heidi has spoken with pt and his friend together at this time, pt continues to refuse to be admitted. Pt friend states that he may be able to take pt home with him instead of pt going to his home. Pt friend David states that he is going to go outside and make some phone calls and will let us know about taking pt home.
--- NOTE | 2019-10-25 15:15 | PC.NURSE ---
pt friend David returned back into the ER at this time. States that he is going to go home and get pts bed set up downstairs and him and his are going to stay with pt and care for him. David went into room to speak with pt and states pt is agreeable to be admitted tonight and go home with David tomorrow.
--- NOTE | 2019-10-25 15:25 | PC.NURSE ---
contacted care management spoke with Laura Swann (brightmiller has left for the day). Notified her of the plan that pt friend lourdes is stating about taking pt home tomorrow and lourdes stating pt is agreeable to stay for the night. Laura stated she will come down and speak with pt.
--- NOTE | 2019-10-25 15:35 | PC.NURSE ---
Som at bedside to speak with pt
--- NOTE | 2019-10-25 15:58 | SW/DCPLANNER ---
Received a call from ED staff (Swapna Paredes) regarding discharge plan for this patient. Swapna Paredes stated that patients friend (David) stated that he was going to patients home this evening to arrange his house so it is safe for the patient and that patient is agreeable to be admitted till tomorrow morning. Once David left patient decided that he was NOT being admitted and wanted to return home. Swapna Paredes did attempt to contact David with no answer but VM left. I did make a report to [facility] regarding patients well being, non ambulatory status with living at home and condition upon arrival. Intake ID# for this case is [id number]. I will continue to follow up with ED staff.
--- NOTE | 2019-10-25 16:15 | PC.NURSE ---
report called to Caroline Cheng RN on second floor, state she will send staff down to get pt.
--- NOTE | 2019-10-25 16:35 | PC.NURSE ---
PT SITTING UP AT THE BOTTOM OF THE STRETCHER, TALKING, 2ND FLOOR STAFF TRANSPORTED HIM UP TO HIS ROOM FOR ADMISSION.
[2019-10-25 16:56] LABS: Troponin I < 0.01 ng/ml (0.00-0.034)
--- NOTE | 2019-10-25 17:03 | HMH.HP ---
*Admission Date: 10/25/19 *Chief complaint: Fall at home *History of present illness: 69-year-old male presented to the emergency department after a fall at home yesterday. HPI is taken from my conversation with the ER physician as well as the ER note. Patient apparently had a fall yesterday and was on the floor most of the evening and overnight into this morning. Patient was ultimately brought to the hospital where he was found to have an inferior pubic ramus fracture. This was deemed nonoperative after review by Dr. Lopez of the orthopedic service but due to patient's inability to bear weight because of the severe pain he was admitted for pain control and physical therapy evaluation. At present patient cannot provide any additional information as he is sedated after administration of Dilaudid. [facility] History I have reviewed the patient's past medical history: Yes Medical History: Reports:: Atrial Fibrillation Denies:: Cancer, Diabetes Mellitus Type 1, Diabetes Mellitus Type 2, Internal Pacemaker, MRSA, Seizures *Have you ever received a pneumonia vaccine?: No *Have you received a flu vaccine this season?: No Other Medical History: Reports: Anemia, Liver Disease (Cirrhosis from hepatitis C). Denies: Blood Transfusion Reaction Comment:: Cirrhosis of the liver secondary to hepatitis C Laterality Cases: Left: Total Hip Replacement Other Surgeries: Yes: Hernia Repair. No: Pacemaker Amputation: No Fractures: Yes (BOTH LEGS; RT RADIAL, LT ULNA, NOSE, JAW, TED:BLE 2INCHES SHORTER AFTER F) - *Social History Smoking Status: Former smoker Tobacco Type: cigarettes # Packs/Day (cigarettes): 1 #Yrs smoked (if former smoker): 50 Alcohol Intake: never Substance Use Type: marijuana *Occupational Status:: other Housing: house *Travel in the last 8 weeks: None Family Hx:: Unable to obtain Review of Systems - Review of Systems Review of systems:: unable to obtain Meds Home Medications Medication Instructions Recorded Confirmed Type Lactulose [Chronulac 20gm/30mL UDC] 20 gm PO TID #2700 udc 09/08/19 Rx Potassium Chloride 10 meq PO DAILY #30 tablet.er 09/08/19 Rx Propranolol HCl 10 mg PO BID #60 tab 09/08/19 Rx Rifaximin [Xifaxan] 550 mg PO Q12 #60 tab 09/08/19 Rx Spironolactone 50 mg PO BID #60 tab 09/08/19 Rx Allergies Allergy/AdvReac Type Severity Reaction Status Date / Time No Known Allergies Allergy Verified 04/21/19 10:25 Exam Vital signs and Labs for Last 24 Hours: Temp Pulse Resp BP Pulse Ox 97.6 F 100 H 16 119/75 96 10/25/19 08:43 10/25/19 15:30 10/25/19 15:30 10/25/19 15:30 10/25/19 15:30 Laboratory Results - last 24 hr 10/25/19 08:50: WBC 6.4, RBC 2.64 L, Hgb 9.1 L, Hct 25.5 L, MCV 96.4 H, MCH 34.3 H, MCHC 35.6 H, RDW 22.0 H, Plt Count 156, MPV 8.2, Neut % (Auto) 80.7 H, Lymph % (Auto) 9.2 L, [place] % (Auto) 8.2, Eos % (Auto) 1.4, Baso % (Auto) 0.4, Neut # (Auto) 5.2, Lymph # (Auto) 0.6 L, [place] # (Auto) 0.5, Eos # (Auto) 0.1, Baso # (Auto) 0.0 10/25/19 08:50: PT 13.7 H, INR 1.36 H 10/25/19 08:50: Sodium 135 L, Potassium 4.3, Chloride 105, Carbon Dioxide 27, Anion Gap 7.3, BUN 21 H, Creatinine 0.80, Estimated Creat Clear 45, Estimated GFR 96, Est GFR ( Amer) 116, Glucose 108 H, Calcium 8.6, Total Bilirubin 2.6 H, AST 45, ALT 29, Alkaline Phosphatase 163 H, Total Creatine Kinase 71, CK-MB (CK-2) 0.6 D, Troponin I < 0.01, Total Protein 8.3 H, Albumin 2.6 L, Globulin 5.7 H, Albumin/Globulin Ratio 0.5 L 10/25/19 08:50: Ammonia 36 H 10/25/19 12:30: Troponin I < 0.01 10/25/19 16:20: Troponin I < 0.01 I & O for Last 24 hours: Intake & Output 10/23/19 10/24/19 10/25/19 10/26/19 11:59 11:59 11:59 11:59 Weight 100 lb Narrative: Cachectic appearing elderly male with protuberant abdomen. During initial examination patient was apneic with respiratory rate approximately 6 breaths/min believed to be due to intravenous narcotics he had received for pain. Oropharynx was dry. Heart is tac
--- NOTE | 2019-10-25 18:07 | PC.NURSE ---
When pt arrived to floor RR were 6 breaths per minute and 15-20 sec pauses of ap[address]. Dr. Zamora was on floor and ordered narcan. It was given and pt immediately responded. RR are now 12 and pt has been awake and complaining of pain in the r groin 09/03. Have given norco per jun as well as toradol. Also, hr was reading 150s on tele, when counted 112. Dr. Zamora also made aware of this and ordered inderal 10 mg per jun. Will cont to mx this shift. Pt also states that he doesnt take any of his prescribed meds on medication list.
--- NOTE | 2019-10-25 19:49 | PC.NURSE ---
Pt states that he doesn't take any of his home meds on med req, have made Dr. Zamora aware of this.
--- NOTE | 2019-10-25 22:17 | PC.NURSE ---
Late entry: @ 1999 Pt's manual BP was low and this RN rechecked BP with a smaller size, child/orange, and BP is 97/62 with a MAP of 73. RR is a little low of 10 but pt resting quietly, is Oriented x3 just fatigued. Will continue to monitor
[2019-10-26] VITALS (8 sets, daily range): BP systolic 92–115; BP diastolic 45–76; PULSE 43–77; RESP 10–16; TEMP 36.3–36.9; O2SAT 94–97; BMI 16.9
[2019-10-26 06:50] LABS: Basophils % 0.7 % (0.1-2.0); Eosinophils # 0.3 K/mm3 (0.0-0.4); Eosinophils % 4.3 % (0.1-12.0); Hematocrit 25.3 % (42.0-52.0); Hemoglobin 9.3 g/dL (14.1-18.0); Lymphocytes # 0.7 K/mm3 (0.7-4.5); Lymphocytes % 11.5 % (10-50); Mean Corpuscular HGB Conc 36.7 g/dL (31.8-35.4); Mean Corpuscular Hemoglobin 35.4 pg (27.0-31.2); Mean Corpuscular Volume 96.5 fl (80-94); Mean Platelet Volume 8.3 fl (7.4-10.4); Monocytes # 0.5 K/mm3 (0.1-1.0); Monocytes % 9.2 % (1.7-9.3); Neutrophils # 4.4 K/mm3 (1.8-7.8); Neutrophils % 74.2 % (37.0-80.0); Platelet Count 113 K/mm3 (142-424); Red Blood Count 2.62 M/mm3 (4.60-6.20); Red Cell Distribution Width 22.3 % (11.5-17.5); White Blood Count 5.9 K/mm3 (4.8-10.8)
[2019-10-26 07:00] LABS: Ammonia 96 umol/L (9-30)
--- NOTE | 2019-10-26 07:18 | P.CONPHA_ITS ---
[facility] Pharmacy VTE Monitoring - Patient Demographics Admission date: 10/25/19 Report Date: 10/26/19 Time: 07:19 Allergies/Adverse Reactions: Patient Allergies No Known Allergies Allergy (Verified 04/21/19 10:25) Height: 1.68 m Weight: 47.741 kg Patient Problems: Current Active Problems Pubic ramus fracture (Acute) Chronic liver disease (Acute) Unable to walk (Acute) - VTE Risk Labs: VTE Related Lab Results Hgb 9.3 g/dL (14.1-18.0) L 10/26/19 06:16 Hct 25.3 % (42.0-52.0) L 10/26/19 06:16 Plt Count 113 K/mm3 (142-424) L D 10/26/19 06:16 PT 13.7 seconds (9.4-11.8) H 10/25/19 08:50 INR 1.36 (0.9-1.1) H 10/25/19 08:50 BUN 21 mg/dl (9-20) H 10/25/19 08:50 Creatinine 0.80 mg/dl (0.66-1.25) 10/25/19 08:50 Estimated Creat Clear 45 mL/min (50-200) 10/25/19 08:50 Clinical Trial Participant: No - Prophylaxis VTE Prophylaxis Ordered?: Yes Types of VTE Prophylaxis: TEDS Knee High
--- NOTE | 2019-10-26 07:19 | P.PN_ITS ---
Internal Medicine - PN: Subj *Date: 10/26/19 *Time: 07:19 Interval history: Patient admits to pain this morning. Nursing staff reports patient did not request any pain medication overnight as he slept well and remained sedated. Exam Vital signs and Labs for Last 24 Hours: Temp Pulse Resp BP Pulse Ox 97.4 F L 60 16 115/76 94 L 10/26/19 03:57 10/26/19 04:00 10/26/19 03:57 10/26/19 03:57 10/26/19 03:57 Laboratory Results - last 24 hr 10/25/19 08:50: WBC 6.4, RBC 2.64 L, Hgb 9.1 L, Hct 25.5 L, MCV 96.4 H, MCH 34.3 H, MCHC 35.6 H, RDW 22.0 H, Plt Count 156, MPV 8.2, Neut % (Auto) 80.7 H, Lymph % (Auto) 9.2 L, [place] % (Auto) 8.2, Eos % (Auto) 1.4, Baso % (Auto) 0.4, Neut # (Auto) 5.2, Lymph # (Auto) 0.6 L, [place] # (Auto) 0.5, Eos # (Auto) 0.1, Baso # (Auto) 0.0 10/25/19 08:50: PT 13.7 H, INR 1.36 H 10/25/19 08:50: Sodium 135 L, Potassium 4.3, Chloride 105, Carbon Dioxide 27, Anion Gap 7.3, BUN 21 H, Creatinine 0.80, Estimated Creat Clear 45, Estimated GFR 96, Est GFR ( Amer) 116, Glucose 108 H, Calcium 8.6, Total Bilirubin 2.6 H, AST 45, ALT 29, Alkaline Phosphatase 163 H, Total Creatine Kinase 71, CK- MB (CK-2) 0.6 D, Troponin I < 0.01, Total Protein 8.3 H, Albumin 2.6 L, Globulin 5.7 H, Albumin/Globulin Ratio 0.5 L 10/25/19 08:50: Ammonia 36 H 10/25/19 12:30: Troponin I < 0.01 10/25/19 16:20: Troponin I < 0.01 10/26/19 06:16: Ammonia 96 H 10/26/19 06:16: WBC 5.9, RBC 2.62 L, Hgb 9.3 L, Hct 25.3 L, MCV 96.5 H, MCH 35.4 H, MCHC 36.7 H, RDW 22.3 H, Plt Count 113 L D, MPV 8.3, Neut % (Auto) 74.2, Lymph % (Auto) 11.5, [place] % (Auto) 9.2, Eos % (Auto) 4.3, Baso % (Auto) 0.7, Neut # (Auto) 4.4, Lymph # (Auto) 0.7, [place] # (Auto) 0.5, Eos # (Auto) 0.3, Baso # (Auto) 0.0 I & O for Last 24 hours: Intake & Output 10/23/19 10/24/19 10/25/19 10/26/19 11:59 11:59 11:59 11:59 Intake Total 240 / 240 Output Total / Balance 215 / 215 Weight 100 lb 105 lb 4 oz Narrative: Patient awakens this morning but seems quite drowsy. Lungs are clear. Heart has an irregularly irregular rate and rhythm. Abdomen is soft with mild distention. Extremities have no edema. Assessment and Plan (1) Pubic ramus fracture Current visit: Yes Status: Acute Category: Medical Code(s): S32.599A - Other specified fracture of unspecified pubis, initial encounter for closed fracture PT eval today. H&H is stable (2) Cirrhosis of liver with ascites Current visit: No Status: Chronic Qualifiers: Hepatic cirrhosis type: unspecified hepatic cirrhosis Qualified Code(s): K74.60 - Unspecified cirrhosis of liver; R18.8 - Other ascites Category: Medical Code(s): K74.60 - Unspecified cirrhosis of liver; R18.8 - Other ascites (3) Hepatic cirrhosis due to chronic hepatitis C infection Current visit: No Status: Chronic Category: Medical Code(s): B18.2 - Chronic viral hepatitis C; K74.60 - Unspecified cirrhosis of liver (4) Acute hepatic encephalopathy Current visit: Yes Status: Acute Category: Medical Code(s): K72.00 - Acute and subacute hepatic failure without coma Begin lactulose for acute hepatic encephalopathy. Hold Xifaxan at this time. Patient will be given a liter of fluid.
[2019-10-26 07:53] LABS: Chloride 106 mmol/L (98-107); Sodium 131 mmol/L (136-145)
[2019-10-26 07:54] LABS: Potassium 4.8 mmoL/L (3.5-5.1)
[2019-10-26 07:56] LABS: Alanine Aminotransferase 27 U/L (12-78); Albumin Level 2.6 g/dl (3.5-5.0); Albumin/Globulin Ratio 0.5 (1.1-1.8); Alkaline Phosphatase 133 U/L (38-126); Anion Gap 7.8 mEq/L (5-15); Aspartate Amino Transferase 68 U/L (17-59); Bilirubin,Total 2.5 mg/dl (0.2-1.3); Blood Urea Nitrogen 30 mg/dl (9-20); Calcium 8.4 mg/dl (8.4-10.2); Carbon Dioxide 22 mmol/L (22.0-30.0); Creatinine Clearance Estimated 43 mL/min (50-200); Estimated Glomerular Filt Rate 67 ml/min (>60); GFR (African American) 81 ML/MIN (>60); Globulin 5.5 g/dL (1.3-3.2); Glucose 69 mg/dl (74-100); Total Protein,Serum 8.1 g/dl (6.3-8.2)
--- NOTE | 2019-10-26 07:58 | PC.NURSE ---
PT A&OX4 T/O SHIFT. PT BECAME MORE ALERT THE SHIFT WENT ON. PT WAS VERY SLEEPY AT BEGINNING OF SHIFT. PT TOLERATED RA WELL T/O SHIFT. PT DID NOT C/O ANY PAIN T/O SHIFT. PT RESTED IN BED WITH EYES CLOSED MAJORITY OF SHIFT. PT UNABLE TO URINATE ON HIS OWN THIS SHIFT, INSERTED F/C. PT HAD 390 OUT, DARK JAMIN COLORED URINE. (SEE PROVIDER NOTIFICATION.) PT MOVED TO SIDE OF BED AND STOOD TO ATTEMPT TO PEE WITH ASSISTANCE. DID VERY WELL, NO C/O PAIN. VSS T/O SHIFT.
--- NOTE | 2019-10-26 08:43 | PC.NURSE ---
RN aware of low bp and respiration rate.
--- NOTE | 2019-10-26 09:38 | SW/DCPLANNER ---
Addendum entered by Nguyen Whittington 10/28/19 07:43: SET UP HOME HEALTH SERVICES FOR THIS PATIENT WITH GREG AT HOME: PATIENTS FRIEND JULIANN CAME IN TODAY TO SEE HIM AND STATED HE WAS GOING TO TAKE HIM HOME...APS HAS BEEN INVOLVED SOMEWHAT WITH HIM AND I HAVE KEPT THEM INFORMED OF WHAT IS GOING ON. ELICIA STATED MR LAROSE'S DAUGHTER IS TRYING TO OBTAIN GUARDIANSHIP OF MR LAROSE AND THEY HAVE A COURT DATE NOVEMBER 02 FOR EMERGENT GUARDIANSHIP..HOME HEALTH WILL SEE THIS PATIENT AND KEEP APS INFORMED.... Original Note: WAS CALLED TO THE ED YESTERDAY BY STAFF THAT THIS PATIENT WAS BR[facility]GHT [facility] AFTER A FALL THAT RESULTED AN INFERIOR FRED FRACTURE.. PATIENT HAD FALLEN ON THE FLOOR AND HAD LAID THERE FOR A FEW HOURS BEFORE THE NEIGHBOR FOUND HIM AND THUS WAS BROUGHT TO [facility]... PATIENT WAS UNKEPT, CLOTHES WERE SOILED WITH URINE AND FECES...PATIENT RESIDES IN HIS OWN HOME AND STATES HIS NEIGHBOR, JULIANN SEES ABOUT HIM...JULIANN WAS AT THE HOSPITAL AND I SPOKE WITH HIM AFTER MS LAROSE WAS ADAMANT THAT HE DID NOT WANT TO STAY FOR AN ADMISSION AND WANTED TO GO HOME.. JULIANN AGREED TO TAKE HIM HOME AND WANTED TO CALL HIS AND STEPPED OUTSIDE TO DO SO AND NEVER CAME BACK IN... COULD NOT REACH HIM ON THE PHONE SO PATIENT HAD TO BE BROUGHT UP TO THE FLOOR AND WAS ADMITTED BY DR GRAYSON... THIS IS THE 3RD READMISSION FOR THIS PATIENT IN A THREE MONTH SPAN...PATIENT HAS AN OPEN CASE WITH APS AND THIS WAS CALLED IN AGAIN YESTERDAY AFTER JULIANN ABANDONED HIM...I SPOKE WITH DR GRAYSON THIS MORNING AND HE DOESN'T WANT ME TO SAY ANYTHING TO MR LRAOSE OR HIS DAUGHTER WHO LIVES OUT OF STATE UNTIL HE CAN SPEAK WITH MR LAROSE IS HIMSELF.... WILL BE AVAILABLE TO ASSIST WITH ANY PLANS THAT ARE DEEMED BY MD AND DAUGHTER....
[2019-10-26 10:32] LABS: Microscopic, Urine URINE MICROSCOPIC (MICROSCOPIC)
--- NOTE | 2019-10-26 10:45 | HMH.PHAINT ---
MEDICATION RECONCILIATION COMPLETED USING PHARMACY AND DISCHARGE SUMMARY FROM 09/08/2019
--- NOTE | 2019-10-26 11:00 | HMH.PTEV ---
Physical Therapy Evaluation Rehab PT IP Evaluation Start: 10/25/19 17:25 Freq: ONCE Status: Active Protocol: Document 10/26/19 10:54 SANDRA (Rec: 10/26/19 11:00 SANDRA [id number]) Subjective/History History History THis is the initial IP PT evalaution for Foster Martines. Pt is well known to therapist due to long hx of re- admissions to [facility] and OPPT. Pt is a 69 y/o male admitted to [facility] thru ED. Pt was found at home on floor by neighbor. Pt was covered in urine and feces, animal feces in hair. Pt has sig. hx of past falls and being found on floor by neighbor. Pt has consistently refused assistance and any home care from HHPT, Nsg or APS. Subjective Subjective Pt reports his bones hurt - Pt reports he understands Dr. Zamora wants him to get up and OOB, but pt reports he does not feel like, and does not want therapy to come back. Rehab PT IP Eval Objective Appearance Patient Behavior Uncooperative,Resistive to Care Patient Orientation Person,Place Difficulty following instructions none Speech Pattern Soft-Spoken Rehab PT IP prob,goals,plan Problems Date of Evaluation: 10/26/19 Rehab Potential Rehab Potential Innapropriate for Skilled Therapy Discharge Plan PT Discharge Plan Pt has severe need of assistance for self care and ADL's, but is resistive to any assistance. Pt would greatly benefit from LTC placement for safety and self care. G -code Required Yes Eval Complexity Eval Charge Codes 87243 - Moderate Complexity G Codes PT Current Status Self Care PT Current Status Modifier CM-At least 80% but less than 100% impaired, limited or restricted PT Goal Status Self Care PT Goal Status Modifer CM-At least 80% but less than 100% impaired, limited or restricted
[2019-10-26 11:02] LABS: Appearance,Urine CLEAR (Clear); Blood, Urine Negative (Negative); Glucose,Urine (UA) Negative (Negative); Ketones,Urine Negative (Negative); Leukocyte Esterase,Urine Negative (Negative); Nitrate,Urine Negative (Negative); Protein,Urine Negative (Negative); Specific Gravity, Urine 1.025 (1.005-1.030)
[2019-10-26 11:07] LABS: Bilirubin,Urine Negative (Negative); Color,Urine Amber (Yellow)
[2019-10-26 11:33] LABS: Squamous Epithelial Cell,Urine Occasional #/hpf (0-5)
[2019-10-26 11:34] LABS: Hyaline Casts,Urine Occasional #/lpf (0)
--- NOTE | 2019-10-26 18:49 | PC.NURSE ---
ALERT AND ORIENTED TO SELF, SLOW TO PROCESS AND REPLY. PT IS EASILY DISTRACTED AND DOES NOT ALWAYS FOLLOW INSTRUCTIONS WELL. PT DENIES PAIN. BAILEY CATHETER IS SECURE, PATENT, AND DRAINING CLEAR YELLOW URINE. VSS. NO DISTRESS NOTED. SAFETY MEASURES IN PLACE, WILL CONTINUE TO MONITOR
--- NOTE | 2019-10-26 19:01 | PC.NURSE ---
report given to patti
[2019-10-27] VITALS: BP 103/55; PULSE 40; PULSE 78; RESP 16; TEMP 36.8; O2SAT 91
[2019-10-27 04:00] VITALS: BP 108/64; PULSE 55; RESP 16; TEMP 36.9; O2SAT 95
[2019-10-27 04:26] VITALS: BMI 17.4
--- NOTE | 2019-10-27 04:57 | PC.NURSE ---
pt continuously removing leads, unplugging telemetry box, t/o shift, making 0400 telemetry strip unreadable
--- NOTE | 2019-10-27 05:58 | PC.NURSE ---
shift summary, pt has had 3 loose BMs this shift, and remains pleasantly confused, denies pain except with movement
[2019-10-27 06:35] LABS: Ammonia 22 umol/L (9-30)
--- NOTE | 2019-10-27 07:06 | HMH.ACPN2 ---
Internal Medicine - PN: Subj *Date: 10/27/19 *Time: 07:06 Interval history: Patient has remained stable over the last 24 hours. Nursing staff reports patient has remained confused at times. Patient has repeatedly tried to remove his cma or lpn. Patient can be reoriented with assistance. He admits to pain in his right hip and pelvic region from his fracture. Patient was seen by physical therapy yesterday but did not participate well, likely due to his encephalopathy. Patient has had multiple loose stools from the lactulose. Propranolol has been held for the last 24 hours due to bradycardia Exam Vital signs and Labs for Last 24 Hours: Temp Pulse Resp BP Pulse Ox 98.4 F 55 L 16 108/64 L 95 10/27/19 04:00 10/27/19 04:00 10/27/19 04:00 10/27/19 04:00 10/27/19 04:00 Laboratory Results - last 24 hr 10/26/19 06:16: Sodium 131 L, Potassium 4.8, Chloride 106, Carbon Dioxide 22, Anion Gap 7.8, BUN 30 H D, Creatinine 1.10 D, Estimated Creat Clear 43, Estimated GFR 67, Est GFR ( Amer) 81 D, Glucose 69 L D, Calcium 8.4, Total Bilirubin 2.5 H, AST 68 H D, ALT 27, Alkaline Phosphatase 133 H, Total Protein 8.1, Albumin 2.6 L, Globulin 5.5 H, Albumin/Globulin Ratio 0.5 L 10/26/19 07:00: Urine Color Zoraida, Urine Appearance Clear, Urine pH 6.0, Ur Specific [place] 1.025, Urine Protein Negative, Urine Glucose (UA) Negative, Urine Ketones Negative, Urine Blood Negative, Urine Nitrate Negative, Urine Bilirubin Negative, Urine Urobilinogen 1.0, Ur Leukocyte Esterase Negative, Urine RBC 3-5, Urine WBC 5-10, Ur Squamous Epith Cells Occasional, Urine Bacteria None, Hyaline Casts Occasional 10/27/19 05:51: Ammonia 22 I & O for Last 24 hours: Intake & Output 10/24/19 10/25/19 10/26/19 10/27/19 11:59 11:59 11:59 11:59 Intake Total 300 / 300 1180 / 1180 Output Total 315 / 315 300 / 300 Balance -15 / -15 880 / 880 Weight 100 lb 105 lb 4 oz 108 lb 9 oz Narrative: Patient is awake and laying comfortably in bed and shows no signs of distress. Patient is oriented to person, place, day of the week. Patient incorrectly identified the month and the year as 1983 and 1991 respectively. Oropharynx is dry. Lungs are distant but clear. Heart rate is irregular. Abdomen is soft. Lower extremities have no edema. Sparks catheter is anchored. Assessment and Plan (1) Pubic ramus fracture Current visit: Yes Status: Acute Category: Medical Code(s): S32.599A - Other specified fracture of unspecified pubis, initial encounter for closed fracture Continue PT. Patient is agreeable to transitioning to a senior living facility for rehabilitation but his ultimate goal is to return home (2) Cirrhosis of liver with ascites Current visit: No Status: Chronic Qualifiers: Hepatic cirrhosis type: unspecified hepatic cirrhosis Qualified Code(s): K74.60 - Unspecified cirrhosis of liver; R18.8 - Other ascites Category: Medical Code(s): K74.60 - Unspecified cirrhosis of liver; R18.8 - Other ascites Stable (3) Hepatic cirrhosis due to chronic hepatitis C infection Current visit: No Status: Chronic Category: Medical Code(s): B18.2 - Chronic viral hepatitis C; K74.60 - Unspecified cirrhosis of liver (4) Acute hepatic encephalopathy Current visit: Yes Status: Acute Category: Medical Code(s): K72.00 - Acute and subacute hepatic failure without coma Improving although patient has not returned to baseline. - Assessment and plan all Dx Assessment and Plan for all problems:: Patient's propranolol will be discontinued due to bradycardia. Spironolactone will be held as he does not take it at home anyway as he is admitted to not taking any of his medications at home. We will continue to monitor his ammonia level.
[2019-10-27 07:39] VITALS: BP 84/47; PULSE 57; RESP 18; TEMP 36.4; O2SAT 96
[2019-10-27 08:00] VITALS: PULSE 57; PULSE 80
[2019-10-27 10:48] LABS: Coronavirus 19 IgG Antibody Negative (Negative); Coronavirus 19 IgM Antibody Negative (Negative)
--- NOTE | 2019-10-27 12:50 | HMH.DCSUM ---
General - General Admission date:: 10/25/19 Discharge date: 10/27/19 HPI HPI: 69-year-old male presented to the emergency department after a fall at home yesterday. HPI is taken from my conversation with the ER physician as well as the ER note. Patient apparently had a fall yesterday and was on the floor most of the evening and overnight into this morning. Patient was ultimately brought to the hospital where he was found to have an inferior pubic ramus fracture. This was deemed nonoperative after review by Dr. Lopez of the orthopedic service but due to patient's inability to bear weight because of the severe pain he was admitted for pain control and physical therapy evaluation. At present patient cannot provide any additional information as he is sedated after administration of Dilaudid. Hospital Course Hospital Course: Patient was admitted. ON 10/25 PT evaluated patient and thought LTC was most appropriate. Patient did not participate with PT and ultimately was unwilling to be transferred to SNF or LTC. His neighbor David Gill helps care for him. Patient was discharged to home under the care of his neighbor. Home health will be arranged. Due to fall risk and home situation patient will have to control pain with tylenol as do not think it safe for him to use opiates unsupervised. On 10/25 patient had altered mental status on ammonia was elevated. He was hydrated on started on lactulose 20mg qid. By 10/26 his ammonia level was normal. Patient admitted to not taking his medications at home. Objective Vital signs: Temp Pulse Resp BP Pulse Ox 97.6 F 57 L 18 84/47 L 96 10/27/19 07:39 10/27/19 08:00 10/27/19 07:39 10/27/19 07:39 10/27/19 07:39 Results Labs on day of discharge: Labs from last 24 hours 10/27/19 10/27/19 05:51 05:51 Ammonia 22 SARS-CoV-2 IgG Ab (Rapid) Negative SARS-CoV-2 IgM Ab (Rapid) Negative DS: Diagnosis - Discharge Diagnosis (1) Pubic ramus fracture Status: Acute (2) Cirrhosis of liver with ascites Status: Chronic (3) Hepatic cirrhosis due to chronic hepatitis C infection Status: Chronic (4) Acute hepatic encephalopathy Status: Acute Discharge Plan - Patient Discharge Instructions ACTIVITY: Continue current activity DIET: continue same diet Patient Instructions: DI for Pelvic Fracture, DI for Malnutrition - Older Adults, DI for Hepatic Encephalopathy - Follow up Plan Disposition: Home, Self-Nursing Home Medications: Home Medications Medication Instructions Recorded Confirmed Type Lactulose [Chronulac 20gm/30mL UDC] 20 gm PO TID 10/26/19 10/26/19 History Potassium Chloride 10 meq PO DAILY 10/26/19 10/26/19 History Rifaximin [Xifaxan] 550 mg PO Q12 10/26/19 10/26/19 History Spironolactone 50 mg PO BID 10/26/19 10/26/19 History Prescriptions/Medication Reconciliation: Continued Rifaximin [Xifaxan] 550 mg PO Q12 Spironolactone 50 mg PO BID Potassium Chloride 10 meq PO DAILY Lactulose [Chronulac 20gm/30mL UDC] 20 gm PO TID Discontinued Propranolol HCl 10 mg PO BID #60 tab - Problem Reconciliation Problems Reviewed?: Yes
== END 2019-10-27 11:37 | disposition home health service (06) ==
LOC: ER 13:42 → 2ND 16:01
PROVIDERS: Internal Medicine Adolescent Medicine; Admitting Provider Family Medicine; Emergency Provider Family Medicine; PCP Family Medicine; Visit Provider Family Medicine
DX: S32.591A Other specified fracture of right pubis, initial encounter for closed fracture (principal); W01.0XXA Fall on same level from slipping, tripping and stumbling without subsequent striking against object, initial encounter; Y92.019 Unspecified place in single-family (private) house as the place of occurrence of the external cause; B18.2 Chronic viral hepatitis C; K74.60 Unspecified cirrhosis of liver; R18.8 Other ascites; G93.49 Other encephalopathy; I48.91 Unspecified atrial fibrillation; D64.9 Anemia, unspecified; Z87.891 Personal history of nicotine dependence; Z79.899 Other long term (current) drug therapy
CPT/HCPCS: 36415; 70450; 72125; 72170; 73000; 73030; 73700; 80053; 81001; 82140; 82550; 82553; 84484; 85025; 85610; 86328; 96372; 96374; 96375; 97162; 99284; G0378; J2405